=== PATIENT | male | born 1945 | race African-American/Black ===

== ENCOUNTER 2019-09-18 10:14 | Emergency (ER) | payer OTHER ==
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
--- OUTSIDE RECORDS SUMMARY | 2019-09-18 12:06 | XMS REPORT ---
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 Problem Mild depression F32.0 Active Problem Pain in limb M79.609 Active Problem Mass on back R22.2 Active Problem Congestive heart failure, I50.9 Ac tive unspecified HF chronicity, unspecified heart failure type Problem Varicose veins I86.8 Active Problem Primary insomnia F51.01 Active Problem Benign prostatic hyperplasia N40.0 Active without lower urinary tract symptoms Problem Other chronic pain G89.29 Active Problem Low back pain M54.5 Active Problem Cervicalgia M54.2 Active Problem Anemia D64.9 Active Problem Hypertension I10 Active Problem Hematuria R31.9 Active Problem Edema R60.9 Active Problem Mixed hyperlipidemia E78.2 Active Problem Elevated PSA R97.2 Active Problem CKD (chronic kidney disease) stage N18.3 Active 3, GFR 30-59 ml/min Problem Chronic kidney disease, unspecified N18.9 Active CKD stage Problem Kidney disease N28.9 Active Problem Lower extremity edema R60.0 Active Problem 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
--- OUTSIDE RECORDS SUMMARY | 2019-09-18 12:06 | XMS REPORT ---
:1945 Author Organization [employer] Care Team Providers Name Role Phone Escoto, Noelle Provider Role Unavailable Allergies, Adverse Reactions, Alerts Substance Reaction Event Type N.K.D.A. 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 Problem Seasonal allergic rhinitis, J30.2 Active unspecified trigger Problem Primary osteoarthritis, 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 Problem Mild depression F32.0 Active Problem Mass on back R22.2 Active Problem Pain in limb M79.609 Active Problem Congestive heart failure, I50.9 Ac tive unspecified HF chronicity, unspecified heart failure type Problem Primary insomnia F51.01 Active Problem Varicose veins I86.8 Active Problem Benign prostatic hyperplasia N40.0 Active [...] N18.3 Active 3, GFR 30-59 ml/min Problem Lower extremity edema R60.0 Active Medications Medication Code Code Instructions Start End Status Dosage System Date Date Simvastatin ND 19913128248 20 MG Orally May 15, Active 1 t ablet Once a day 2018 in the evening Amlodipine ND 00182281285 5 MG Orally Active 1 tab let Besylate Once a day Metoprolol ND 17542129400 100 MG Active TAKE 1 Tartrate TABLET TWICE DAILY WITH FOOD Clonidine HCl FORMERLY NAMED [facility] 17974178205 0.3 MG Orally Active 1 tablet three times a hold if bp day less 140/ 90 Trazodone HCl FORMERLY NAMED [facility] 17128875033 50 MG Orally Inactive 1 tablet Once a day at bedtime as needed Entresto FORMERLY NAMED [facility] 22866333345 49-51 MG Orally Active 1 t ablet Twice a day Terazosin HCl FORMERLY NAMED [facility] 77178309315 5 MG Active TAKE 1 CAPSULE EVERY DAY Osiris Aspirin FORMERLY NAMED [facility] 64211109790 81 MG Orally Active 1 tablet EC Low Dose Once a day Bactrim DS FORMERLY NAMED [facility] 69233834072 800-160 MG Active 1 tabl et Orally Twice a day Tamsulosin HCl FORMERLY NAMED [facility] 65964135754 0.4 MG Orally Active 1 capsule Once a day Tramadol HCl FORMERLY NAMED [facility] 60886717479 50 MG Orally Active 1 tablet every 6 hours prn pain Tamsulosin HCl FORMERLY NAMED [facility] 05434421370 0.4 MG Active Take 1 capsule by mouth daily. Clonidine HCl FORMERLY NAMED [facility] 34625854568 0.3 MG Orally Active 1 tablet Once a day Ferrous Sulfate FORMERLY NAMED [facility] 32477828681 325 (65 Fe) MG Activ e 1 tablet Orally Once a day Results No Known Results Summary Purpose eClinicalWorks Submission
--- OUTSIDE RECORDS SUMMARY | 2019-09-18 12:06 | XMS REPORT ---
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
[2019-09-18 12:40] VITALS: BP 202/99; O2SAT 100
== END 2019-09-18 12:35 | disposition home or self-care (01) ==
LOC: ER 10:14
DX: G89.11 Acute pain due to trauma (principal); M54.9 Dorsalgia, unspecified; V49.40XA Driver injured in collision with unspecified motor vehicles in traffic accident, initial encounter; I10 Essential (primary) hypertension; Z95.818 Presence of other cardiac implants and grafts
CPT/HCPCS: 71045; 72072; 99284

== ENCOUNTER 2019-11-26 11:18 | Observation (INO) | payer OTHER ==
--- OUTSIDE RECORDS SUMMARY | 2019-11-26 11:21 | XMS REPORT ---
:1945 Author Organization [employer] Care Team Providers Name Role Phone Noelle Escoto Provider Role Unavailable Allergies, Adverse Reactions, Alerts Substance Reaction Event Type N.K.D.A. Info Not Available Non Drug Allergy Problems Problem Type Condition Code Onset Dates Condition Statu s Assessment Medicare annual wellness visit, Z00.00 Active subsequent Problem Chronic kidney disease, unspecified N18.9 Active [...] Start End Status Dosage System Date Date Osiris Aspirin ND 35361748430 81 MG Orally Active 1 tablet EC Low Dose Once a day Tramadol HCl ND 57038980641 50 MG Orally Active 1 tablet every 6 hours prn pain Clonidine HCl ND 68293538823 0.3 MG Active Take 1 tablet by mouth three times daily. Hold if blood pressure is less than 140/90 Bactrim DS [facility] 63860135560 800-160 MG Active 1 tabl et Orally Twice a day Terazosin HCl [facility] 43710148347 5 MG Active TAKE 1 CAPSULE EVERY DAY Ferrous Sulfate [facility] 38456062341 325 (65 Fe) MG Activ e 1 tablet Orally Once a day Tamsulosin HCl [facility] 39191156158 0.4 MG Active Take 1 capsule by mouth daily. Simvastatin [facility] 91268366639 20 MG Orally Feb 20, Active 1 t ablet in Once a day 2018 the evening Amlodipine [facility] 31055708301 5 MG Orally Active 1 tab let Besylate Once a day Metoprolol [facility] 25083296460 100 MG Active TAKE 1 Tartrate TABLET TWICE DAILY WITH FOOD Entresto [facility] 79160771147 49-51 MG Orally Active 1 t ablet Twice a day Results No Known Results Summary Purpose eClinicalWorks Submission
--- OUTSIDE RECORDS SUMMARY | 2019-11-26 11:21 | XMS REPORT ---
:1945 Author Organization [employer] Care Team Providers Name Role Phone Escoto, Noelle Provider Role Unavailable Allergies, Adverse Reactions, Alerts Substance Reaction Event Type N.K.D.A. 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 Assessment Primary insomnia F51.01 Active Assessment Dilated cardiomyopathy I42.0 Activ e Assessment Mild depression F32.0 Active Assessment Mixed hyperlipidemia E78.2 Active Assessment Hypertension I10 Active Problem Pain in limb M79.609 Active Problem Hematuria R31.9 Active Problem Seasonal allergic rhinitis, J30.2 Active unspecified trigger Problem Primary osteoarthritis of left M19.012 Active shoulder Problem Edema R60.9 Active Problem Primary osteoarthritis, 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 Problem Benign prostatic hyperplasia N40.0 Active without lower urinary tract symptoms Problem Other chronic pain G89.29 Active Problem Osteoarthritis of multiple joints, M15.9 Active unspecified osteoarthritis type Problem Primary insomnia F51.01 Active Problem CKD (chronic kidney disease) stage N18.3 Active 3, GFR 30-59 ml/min Problem Hypertension I10 Active Problem Dilated cardiomyopathy I42.0 Activ e Problem Anemia D64.9 Active Problem Mild depression F32.0 Active Problem Mass on back R22.2 Active Problem Low back pain M54.5 Active Problem Cervicalgia M54.2 Active Problem Mixed hyperlipidemia E78.2 Active Assessment Osteoarthritis of multiple joints, M15.9 Active unspecified osteoarthritis type Problem Kidney disease N28.9 Active Problem Lower extremity edema R60.0 Active Problem Elevated PSA R97.2 Active Problem Chronic kidney disease, unspecified N18.9 Active CKD stage Problem Congestive heart failure, I50.9 Ac tive unspecified HF chronicity, unspecified heart failure type Problem Varicose veins I86.8 Active Problem 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 Entresto [facility] 46929110150 49-51 MG Orally Active 1 t ablet Twice a day Tamsulosin HCl [facility] 32848901548 0.4 MG Orally Active 1 capsule Once a day Bactrim DS [facility] 71687778360 800-160 MG Active 1 tabl et Orally Twice a day Ferrous Sulfate [facility] 52488824014 325 (65 Fe) MG Activ e 1 tablet Orally Once a day Clonidine HCl [facility] 24588684506 0.3 MG Active Take 1 tablet by mouth three times daily. Hold if blood pressure is less than 140/90 Amlodipine [facility] 64365996954 5 MG Orally Active 1 tab let Besylate Once a day Metoprolol [facility] 05881869706 100 MG Active TAKE 1 Tartrate TABLET TWICE DAILY WITH FOOD Clonidine HCl [facility] 04297032980 0.3 MG Orally Active 1 tablet three times a hold if bp day less 140/ 90 Trazodone HCl [facility] 84275184669 50 MG Orally Active 1 tablet at Once a day bedtime as needed Osiris Aspirin [facility] 11572937439 81 MG Orally Active 1 tablet EC Low Dose Once a day Tramadol HCl [facility] 62475334606 50 MG Orally Active 1 tablet every 6 hours prn pain Terazosin HCl ND 49705285906 5 MG Active TAKE 1 CAPSULE EVERY DAY Simvastatin ND 74224138832 20 MG Orally May 15, Active 1 t ablet in Once a day 2017 the evening Results No Known Results Summary Purpose eClinicalWorks Submission
--- OUTSIDE RECORDS SUMMARY | 2019-11-26 11:21 | XMS REPORT ---
:1945 Author Organization [employer] Care Team Providers Name Role Phone Escoto, Na Provider Role Unavailable Allergies No Known Allergies Problems Problem Type Condition Code Onset Dates Condition Statu s Assessment CKD (chronic kidney disease) stage N18.3 Active 3, GFR 30-59 ml/min Problem Pain in limb M79.609 Active Problem [...] M54.2 Active Problem Mixed hyperlipidemia E78.2 Active Problem Kidney disease N28.9 Active Problem Lower [...]
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
--- OUTSIDE RECORDS SUMMARY | 2019-11-26 11:21 | XMS REPORT | Continuity of Care Document ---
:1945 Author Organization [facility] t Address [address] [place] [address] Care Team Providers Name Role Phone Unavailable [...] erotic erotic [facility] - cardiovasc cardiovasc Me jus aguirre disease disease [facility] Kidney Kidney Problem Active [facility] disease disease [facility] Primary Primary Problem Active [facility] [...] a without a without l lower lower [facility] urinary urinary ent tract tract Clinics symptoms symptoms Other Other Problem Active [facility] chronic chronic [facility] - pain pain Memoria l [facility] Low back Low back Problem Active [facility] pain pain [facility] Cervicalgi Cervicalgi Problem Active [facility] a a [facility] Mild Mild Problem Active [facility] depression depression Mary Kay kes - Memoria l [facility] Clinics Mass on Mass on Problem Active [facility] back back [facility] - [facility] Primary Primary Problem Active [facility] insomnia insomnia [facility] Dilated Dilated Problem Active [facility] cardiomyop cardiomyop Mary Kay kes - athy athy Memoria l [facility]ics Osteoarthr Osteoarthr Problem Active [facility] itis of itis of Lukes - multiple multiple Memori a joints, joints, l unspecifie unspecifie Ou tpati d d ent osteoarthr osteoarthr Cl inics itis type itis type Preglaucom Preglaucom Problem Active [facility] a, a, [facility] - unspecifie unspecifie Me moria d, d, l bilateral bilateral Outp ati ent Clinics Nausea Nausea Diagnosis Active [facility] with with [facility] - vomiting, vomiting, Elmo zeke unspecifie unspecifie l d d [facility] Diarrhea, Diarrhea, Diagnosis Active [facility] unspecifie unspecifie Mary Kay kes - d d Memoria l [facility] Clinics Allergies, Adverse Reactions, Alerts This patient has no known allergies or adverse reactions. Medications Ordered Filled Start Stop Current Ordering Indication Dosage Frequency Signature Comments Components Source Medication Medication Date Date Medication? Clinician (SIG) Name Name Ondansetron Ondansetron Yes Na Escoto [address] [facility] HCl HCl 8-24 as needed [facility] - 00:00: Memoria 00 [facility] Tamiflu Tamiflu Yes Na Escoto [address] [facility] 7-31 [facility] - 00:00: Memoria 00 [facility] Simvastatin Simvastatin Yes Na Escoto [address] [facility] 2-20 in the [facility] - 00:00: evening Memoria [address] [facility] Ferrous Ferrous Yes Na Escoto [address] [facility]ulfate [facility]ate [facility] Tamsulosin Tamsulosin Yes Na Escoto Take [address] [facility] HCl HCl capsule by [facility] - mouth Memoria daily. l [facility] Clonidine Clonidine Yes Na Escoto Take [address] [facility] HCl HCl tablet by [facility] - mouth Memoria three l times [facility] daily. ent Hold if Clinics blood pressure is less than 140/90 Osiris Osiris Yes Na Escoto [address] [facility] Aspirin EC Aspirin EC John es - Low Dose Low Dose Memoria [facility] ent [facility] Tamsulosin Tamsulosin Yes Na Escoto [address] [facility] HCl [facility] Tramadol Tramadol Yes Na Escoto [address] [facility] HCl HCl [facility] Entresto Entresto Yes Na Escoto [address] [facility] - Memoria [facility] Bactrim DS Bactrim DS Yes Na Escoto [address] [facility] - Mem[facility] l [facility] Clonidine Clonidine Yes Na Escoto [address] [facility] HCl HCl hold if bp Lukes - less 140/ Memoria [address] [facility] Amlodipine Amlodipine Yes Na Escoto [address] [facility] Besylate Besylate [facility] - [facility] Metoprolol Metoprolol Yes Na Escoto TAKE [address] [facility] Tartrate Tartrate TABLET [facility]ukes - TWICE Memoria DAILY WITH l FOOD [facility] ent [facility] Trazodone Trazodone Yes Na Escoto [address] [facility] HCl HCl at bedtime [facility] - as needed [facility] Terazosin Terazosin Yes Na Escoto TAKE [address] [facility] HCl HCl CAPSULE [facility] - EVERY DAY Memoria l Outpati ent Clinics Procedures This patient has no known procedures. Encounters Start End Encounter Admission Attending Care Care Encounter Source Date/Time Date/Time Type Type Clinicians Facility Department ID 2019-11-21 2019-11-21 [facility] [id number] [facility] 09:20:00 09:20:00 [place] [facility] Medicine Outpati ent Clinics 2019-11-18 2019-11-18 [facility] [id number] [facility] 16:28:00 16:28:00 t [employer] [facility] Medicine Outpati ent Clinics 2019-11-18 2019-11-18 [facility] [id number] [address] 10:00:00 10:00:00 t [facility] Medicine Outpati ent Clinics 2019-11-17 2019-11-17 [facility] [id number] [address] 15:13:00 15:13:00 [place] [facility] Medicine Outpati ent Clinics 2019-11-17 2019-11-17 [facility] [id number] 14[facility]55:00 14:55:00 t [facility] [facility] Medicine Outpati ent Clinics 2019-11-06 2019-11-06 [facility] [id number] [address] 16:48:00 16:48:00 [place] [facility] Medicine Outpati ent Clinics 2019-11-03 2019-11-03 [facility] [id number] 11:57:00 11:57:00 t [facility] Medicine Outpati ent Clinics 2019-10-27 2019-10-27 [facility] [id number] 10:01:00 10:01:00 t [facility] Medicine Outpati ent Clinics 2019-10-27 2019-10-27 [facility] [id number] 09:40:00 09:40:00 t [facility] [facility] Medicine Outpati ent Clinics 2019-10-27 2019-10-27 [facility] [id number] 08:08:00 08:08:[address] [facility] [address] Luke s - Road [facility] l Medicine Outpati ent Clinics 2019-10-24 2019-10-24 [facility] [id number] 14:18:00 14:18:00 [place] [employer] Luke s - [facility] Medicine l Medicine Outpati ent Clinics 2019-10-24 2019-10-24 [facility] [id number] 13:18:00 13:18:00 [place] [employer] Luke s - Drive [facility] Medicine l Medicine Outpati ent Clinics 2019-10-02 2019-10-02 [facility] [id number] [address] 16:00:00 16:00:00 [place] [employer]pti[employer] s - Drive [facility] Medicine l Medicine Outpati ent Clinics 2019-10-02 2019-10-02 [facility] [id number] [address] 15:00:00 15:00:00 [place] [employer] LuPeptiVir s - Drive [facility] Medicine l Medicine Outpati ent Clinics 2019-09-23 2019-09-23 [facility] [id number] 13:20:00 13:20:00 [place] Slice s - Drive [facility] Medicine l Medicine Outpati ent Clinics 2019-09-19 2019-09-19 [facility] [id number] 16:42:00 16:42:00 [place] [employer] LuPeptiVir s - Drive [facility] Medicine l Medicine Outpati ent Clinics 2019-08-29 2019-08-29 [facility] [id number] 13:56:00 13:56:00 [place] [employer] LuPeptiVir s - Drive [facility] Medicine l Medicine Outpati ent Clinics 2019-08-14 2019-08-14 [facility] [id number] 09:26:00 09:26:00 [place] Slice s - Drive [facility] Medicine l Medicine Outpati ent Clinics 2019-07-31 2019-07-31 [facility] [id number] 08:40:00 08:40:00 [place] - Drive [facility] Medicine l Medicine Outpati ent Clinics 2019-07-16 2019-07-16 [facility] [id number] 15:21:00 15:21:00 [place] [employer]pti[employer] s - Drive [facility] Medicine l Medicine Outpati ent Clinics 2019-06-11 2019-06-11 [facility] [id number] 13:15:00 13:15:00 [place] Slice [place] - Drive [facility] Medicine l Medicine Outpati ent Clinics 2019-03-03 2019-03-03 [facility] [id number] 08:00:00 08:00:00 [place] [employer] s - Drive [facility] Medicine l Medicine Outpati ent Clinics 2019-02-19 2019-02-19 [facility] [id number] 08:40:00 08:40:00 [place] - Drive [facility] Medicine l Medicine Outpati ent Clinics 2019-02-10 2019-02-10 [facility] [id number] 09:00:00 09:00:00 [place] - Drive [facility] Medicine l Medicine Outpati ent Clinics 2019-02-04 2019-02-04 [facility] [id number] 09:09:00 09:09:00 [place] - Drive [facility] Medicine l Medicine Outpati ent Clinics 2019-01-29 2019-01-29 [facility] [id number] 09:00:00 09:00:00 [place] - Drive [facility] Medicine Outpati ent Clinics 2019-01-20 2019-01-20 [facility] [id number] 13:00:00 13:00:00 [place] - Drive [facility] Medicine l Medicine Outpati ent Clinics 2018-11-29 2018-11-29 [facility] [id number] [facility] 13:00:00 13:00:00 [place] - Drive [facility] l Medicine Outpati ent Clinics 2018-09-18 2018-09-18 [facility] [id number] 08:40:00 08:40:[address] Luke s - Drive [facility] Medicine Outpati ent Clinics 2018-08-09 2018-08-09 [facility] [id number] 10:27:00 10:27:[address] Luke s - Drive [facility] l Medicine Outpati ent Clinics 2018-05-13 2018-05-13 [facility] [id number] [address] 11:15:00 11:15:[address] Luke s - Drive [facility] l Medicine Outpati ent Clinics 2018-01-02 2018-01-02 [facility] [id number] [facility] 14:47:00 14:47:00 [place] [employer] Luke s - Drive [facility] Medicine Outpati ent Clinics 2017-10-23 2017-10-23 [facility] [id number] 16:32:00 16:32:00 [place] [employer] Luke s - Drive [facility] Medicine Outpati ent Clinics 2017-10-22 2017-10-22 [facility] [id number] 09:00:00 09:00:00 [place] [employer] Luke s - Drive [facility] Medicine Outpati ent Clinics 2017-09-12 2017-09-12 [facility] [id number] [facility] 15:32:00 15:32:00 [place] [employer] Lu[employer]pt[employer] s - Drive [facility] Medicine Outpati ent Clinics 2017-09-04 2017-09-04 [facility] [id number] [facility] 10:40:00 10:40:00 [place] [employer] Luke s - Drive [facility] Medicine Outpati ent Clinics 2017-07-24 2017-07-24 [facility] [id number] 16:21:00 16:21:[address] [place] [address] - [address] [facility] Medicine Outpati ent Clinics 2017-07-23 2017-07-23 [facility] [id number] 11:00:00 11:00:00 [place] [employer] Luke s - Drive [facility] Medicine Outpati ent Clinics Results This patient has no known results.
--- OUTSIDE RECORDS SUMMARY | 2019-11-26 11:22 | XMS REPORT ---
:1945 Author Organization [employer] Care Team Providers Name Role Phone Escoto, Na Provider Role Unavailable Allergies No Known Allergies Problems Problem Type Condition Code Onset Dates Condition Statu s Problem Pain in limb M79.609 Active Problem [...]
--- OUTSIDE RECORDS SUMMARY | 2019-11-26 11:22 | XMS REPORT ---
:1945 Author Organization [employer] Care Team Providers Name Role Phone Escoto, Noelle Provider Role Unavailable Allergies No Known Allergies [...] Start End Status Dosage System Date Date Amlodipine [facility] 03540605595 5 MG Orally Active 1 tab let Besylate Once a day Entresto [facility] 31672629214 49-51 MG Orally Active 1 t ablet Twice a day Clonidine HCl [facility] 36921666260 0.3 MG Active Take 1 tablet by mouth three times daily. Hold if blood pressure is less than 140/90 Tamsulosin HCl [facility] 10915372297 0.4 MG Active Take 1 capsule by mouth daily. Metoprolol [facility] 56519600720 100 MG Active TAKE 1 Tartrate TABLET TWICE DAILY WITH FOOD Trazodone HCl ND 13690735527 50 MG Orally Active 1 tablet at Once a day bedtime as needed Azithromycin [facility] 59541901038 250 MG Orally Nov 02, Nov 07, Active 2 tablets Once a day 2019 2019 on the first day, then 1 tablet daily for 4 days Simvastatin ND 66380942207 20 MG Orally May 15, Active 1 t ablet in Once a day 2017 the evening Ferrous Sulfate [facility] 12663966474 325 (65 Fe) MG Activ e 1 tablet Orally Once a day Clonidine HCl ND 66436626975 0.3 MG Orally Active 1 tablet three times a hold if bp day less 140/ 90 Bactrim DS [facility] 62205094397 800-160 MG Active 1 tabl et Orally Twice a day Tamsulosin HCl [facility] 10339502219 0.4 MG Orally Active 1 capsule Once a day Osiris Aspirin EC ND 38157347768 81 MG Orally Active 1 tablet Low Dose Once a day Tamiflu ND 81392370901 75 MG Orally October 23, Active 1 caps ule once a day 2019 Tramadol HCl ND 97409505565 50 MG Orally Active 1 tablet every 6 hours prn pain Terazosin HCl [facility] 00903440470 5 MG Active TAKE 1 CAPSULE EVERY DAY Results No Known Results Summary Purpose eClinicalWorks Submission
--- OUTSIDE RECORDS SUMMARY | 2019-11-26 11:22 | XMS REPORT ---
:1945 Author Organization [employer] Care Team Providers Name Role Phone Escoto, Noelle Provider Role Unavailable Allergies, Adverse Reactions, Alerts Substance Reaction Event Type N.K.D.A. Info Not Available Non Drug Allergy Problems Problem Type Condition Code Onset Dates Condition Statu s Assessment Runny nose R09.89 Active Assessment Contact with and (suspected) Z20.828 Active exposure to other viral communicable diseases Problem Pain in limb M79.609 Active Problem [...] Status Dosage System Date Date Terazosin HCl [facility] 45664179508 5 MG Active TAKE 1 CAPSULE EVERY DAY Entresto [facility] 77007440426 49-51 MG Orally Active 1 t ablet Twice a day Clonidine HCl [facility] 02126381297 0.3 MG Orally Active 1 tablet three times a hold if bp day less 140/ 90 Bactrim DS [facility] 31022867869 800-160 MG Active 1 tabl et Orally Twice a day Metoprolol [facility] 45524640914 100 MG Active TAKE 1 Tartrate TABLET TWICE DAILY WITH FOOD Tamiflu [facility] 89446823013 75 MG Orally October 23, Active 1 caps ule once a day 2019 Clonidine HCl [facility] 12748641372 0.3 MG Active Take 1 tablet by mouth three times daily. Hold if blood pressure is less than 140/90 Amlodipine [facility] 67968552933 5 MG Orally Active 1 tab let Besylate Once a day Tamsulosin HCl [facility] 25585839073 0.4 MG Orally Active 1 capsule Once a day Trazodone HCl [facility] 39043333362 50 MG Orally Active 1 tablet at Once a day bedtime as needed Tamsulosin HCl [facility] 49337536739 0.4 MG Active Take 1 capsule by mouth daily. Tramadol HCl [facility] 36957561232 50 MG Orally Active 1 tablet every 6 hours prn pain Osiris Aspirin [facility] 38421769130 81 MG Orally Active 1 tablet EC Low Dose Once a day Ferrous Sulfate [facility] 39713808067 325 (65 Fe) MG Activ e 1 tablet Orally Once a day Simvastatin ND 68217600024 20 MG Orally Fe, Active 1 t ablet in Once a day 2017 the evening Results No Known Results Summary Purpose eClinicalWorks Submission
--- OUTSIDE RECORDS SUMMARY | 2019-11-26 11:22 | XMS REPORT ---
[...] Start End Status Dosage System Date Date Clonidine HCl [facility] 85639604736 0.3 MG Active Take 1 tablet by mouth three times daily. Hold if blood pressure is less than 140/90 Tamsulosin HCl [facility] 34381295321 0.4 MG Active Take 1 capsule by mouth daily. Trazodone HCl ND 47706858758 50 MG Orally Active 1 tablet at Once a day bedtime as needed Tamsulosin HCl ND 49501227312 0.4 MG Orally Active 1 capsule Once a day Terazosin HCl [facility] 87627554876 5 MG Active TAKE 1 CAPSULE EVERY DAY Ferrous Sulfate [facility] 65308221851 325 (65 Fe) MG Activ e 1 tablet Orally Once a day Simvastatin ND 79275185386 20 MG Orally May 15, Active 1 t ablet in Once a day 2017 the evening Amlodipine ND 96467710317 5 MG Orally Active 1 tab let Besylate Once a day Tamiflu ND 33187540741 75 MG Orally October 23, Active 1 caps ule once a day 2019 Bactrim DS [facility] 93708883675 800-160 MG Active 1 tabl et Orally Twice a day Clonidine HCl [facility] 54924637904 0.3 MG Orally Active 1 tablet three times a hold if bp day less 140/ 90 Metoprolol [facility] 46356807215 100 MG Active TAKE 1 Tartrate TABLET TWICE DAILY WITH FOOD Osiris Aspirin [facility] 24536714082 81 MG Orally Active 1 tablet EC Low Dose Once a day Tramadol HCl [facility] 11593624220 50 MG Orally Active 1 tablet every 6 hours prn pain Entresto [facility] 05551523540 49-51 MG Orally Active 1 t ablet Twice a day Results No Known Results Summary Purpose eClinicalWorks Submission
--- OUTSIDE RECORDS SUMMARY | 2019-11-26 11:22 | XMS REPORT ---
[...] Start End Status Dosage System Date Date Ondansetron HCl [facility] 71919165859 4 MG Orally TID Nov 16, Acti ve 1 tablet PRN N/V 2019 as needed Results No Known Results Summary Purpose eClinicalWorks Submission
--- OUTSIDE RECORDS SUMMARY | 2019-11-26 11:23 | XMS REPORT ---
:1945 Author Organization [facility] Care Team Providers Name Role Phone Noelle Escoto Provider Role Unavailable Allergies, Adverse Reactions, Alerts Substance Reaction Event Type N.K.D.A. 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 Problem Primary osteoarthritis, 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 Problem Anemia D64.9 Active Problem Other chronic pain G89.29 Active Problem Cervicalgia M54.2 Active Problem Benign prostatic hyperplasia N40.0 Active without lower urinary tract symptoms Problem Osteoarthritis of multiple joints, M15.9 Active unspecified osteoarthritis type Problem Dilated cardiomyopathy I42.0 Activ e Problem Lower extremity edema R60.0 Active Problem CKD (chronic kidney disease) stage N18.3 Active 3, GFR 30-59 ml/min Problem Preglaucoma, unspecified, 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 Problem Hypertension I10 Active Problem Mass on back R22.2 Active Problem Low back pain M54.5 Active Problem Primary insomnia F51.01 Active Problem Mild depression F32.0 Active Problem Kidney disease N28.9 Active Problem Varicose veins I86.8 Active Problem Elevated PSA R97.2 Active Problem Mixed hyperlipidemia E78.2 Active Problem Congestive heart failure, I50.9 Ac tive unspecified HF chronicity, unspecified heart failure type Problem Seasonal allergic rhinitis, J30.2 Active unspecified trigger Problem 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 50862410515 0.3 MG Active Take 1 tablet by mouth three times daily. Hold if blood pressure is less than 140/90 Amlodipine [facility] 13025450080 5 MG Orally Active 1 tab let Besylate Once a day Ondansetron HCl ND 82946420333 4 MG Orally TID Nov 16, Acti ve 1 tablet as PRN N/V 2019 needed Tamsulosin HCl ND 85676406826 0.4 MG Orally Active 1 capsule Once a day Entresto ND 74441068503 49-51 MG Orally Active 1 t ablet Twice a day Metoprolol ND 07802382008 100 MG Active TAKE 1 Tartrate TABLET TWICE DAILY WITH FOOD Ferrous Sulfate ND 09263765096 325 (65 Fe) MG Activ e 1 tablet Orally Once a day Simvastatin ND 19338353886 20 MG Orally May 15, Active 1 t ablet in Once a day 2017 the evening Bactrim DS [facility] 48314553911 800-160 MG Active 1 tabl et Orally Twice a day Tamiflu ND 99610958101 75 MG Orally October 23, Active 1 caps ule once a day 2019 Clonidine HCl ND 77897523337 0.3 MG Orally Active 1 tablet three times a hold if bp day less 140/ 90 Trazodone HCl [facility] 24657361366 50 MG Orally Active 1 tablet at Once a day bedtime as needed Osiris Aspirin ND 17266736141 81 MG Orally Active 1 tablet EC Low Dose Once a day Tramadol HCl ND 22343837420 50 MG Orally Active 1 tablet every 6 hours prn pain Terazosin HCl ND 44098435415 5 MG Active TAKE 1 CAPSULE EVERY DAY Tamsulosin HCl [facility] 26466895587 0.4 MG Active Take 1 capsule by mouth daily. Results No Known Results Summary Purpose eClinicalWorks Submission
--- OUTSIDE RECORDS SUMMARY | 2019-11-26 11:23 | XMS REPORT ---
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
--- OUTSIDE RECORDS SUMMARY | 2019-11-26 11:23 | XMS REPORT ---
:1945 [facility] Team Providers Name Role Phone JohnsonLawson Provider Role Unavailable Allergies, Adverse Reactions, Alerts Substance Reaction Event Type N.K.D.A. Info Not Available Non Drug Allergy Problems Problem Type Condition Code Onset Dates Condition Statu s Assessment Exposure to COVID-19 virus Z20.828 A ctive Assessment Nausea with vomiting, unspecified R11.2 Active [...] Status Dosage System Date Date Simvastatin ND 41470770100 20 MG Orally May 15, Active 1 t ablet in Once a day 2018 the evening Ferrous Sulfate ND 45763908216 325 (65 Fe) MG Activ e 1 tablet Orally Once a day Tamsulosin HCl [facility] 45352002433 0.4 MG Active Take 1 capsule by mouth daily. Clonidine HCl [facility] 89893813278 0.3 MG Active Take 1 tablet by mouth three times daily. Hold if blood pressure is less than 140/90 Osiris Aspirin [facility] 26680828812 81 MG Orally Active 1 tablet EC Low Dose Once a day Tamsulosin HCl [facility] 77558855347 0.4 MG Orally Active 1 capsule Once a day Tamiflu ND 68067331913 75 MG Orally October 23, Active 1 caps ule once a day 2019 Tramadol HCl ND 81451635231 50 MG Orally Active 1 tablet every 6 hours prn pain Entresto ND 24020580085 49-51 MG Orally Active 1 t ablet Twice a day Bactrim DS [facility] 61354849292 800-160 MG Active 1 tabl et Orally Twice a day Clonidine HCl [facility] 10148197124 0.3 MG Orally Active 1 tablet three times a hold if bp day less 140/ 90 Amlodipine ND 93879511057 5 MG Orally Active 1 tab let Besylate Once a day Metoprolol ND 34602377436 100 MG Active TAKE 1 Tartrate TABLET TWICE DAILY WITH FOOD Ondansetron HCl [facility] 65074424862 4 MG Orally TID Nov 16, Acti ve 1 tablet as PRN N/V 2019 needed Trazodone HCl [facility] 50716679630 50 MG Orally Active 1 tablet at Once a day bedtime as needed Terazosin HCl [facility] 89190521825 5 MG Active TAKE 1 CAPSULE EVERY DAY Results No Known Results Summary Purpose eClinical[employer] Submission
[2019-11-26] MEDS ORDERED: FAMOTIDINE 20 MG/2 ML VIAL IV ONE (12:03)
[2019-11-26] MEDS ORDERED: NA CHLORIDE 0.9% 500 ML ONE (12:03)
[2019-11-26] MEDS ORDERED: ONDANSETRON 4 MG/2 ML VIAL ONE (12:03)
[2019-11-26 12:16] LABS: Absolute Lymphocytes (CBC) 1.4 K/uL (0.7-4.9); Basophils % 0.3 % (0-1.3); Hematocrit 47.7 % (39.6-49.0); Lymphocytes % 14.1 % (15.3-44.8); MPV 8.3 fL (7.6-11.3); RBC Red Blood Cell Count 5.08 M/uL (4.33-5.43)
--- NOTE | 2019-11-26 12:23 | RAD REPORT ---
EXAM DESCRIPTION: RAD - Chest Single View - 11/26/2019 12:06 pm CLINICAL HISTORY: COUGH COMPARISON: September 18, 2019 TECHNIQUE: AP portable chest image was obtained 11/26/2019 12:06 pm . FINDINGS: Lungs are clear. Heart and vasculature are normal. No measurable pleural effusion and no p neumothorax. No acute bony abnormality seen. Prominent, tortuous aorta matches comparison. IMPRESSION: No acute cardiopulmonary process.
[2019-11-26 12:30] LABS: Albumin 3.2 g/dL (3.4-5.0); Bilirubin Direct 0.2 mg/dL (0-0.2); Bilirubin Total 0.7 mg/dL (0.2-1.0); Potassium 3.4 mmol/L (3.5-5.1)
--- NOTE | 2019-11-26 12:50 | RAD REPORT ---
EXAM DESCRIPTION: CT - Abdomen Pelvis W Contrast - 11/26/2019 12:41 pm CLINICAL HISTORY: Abdominal pain COMPARISON: 2015 TECHNIQUE: Computed axial tomography of the abdomen pelvis was obtained. 100 cc Isovue-300 was admin istered intravenously. Oral contrast was not requested which limits evaluation of bowel. All CT scans are performed using dose optimization technique as appropriate and may include automated exposure control or mA/KV adjustment according to patient size. FINDINGS: Small hepatic cysts Small renal cysts The spleen, pancreas and adrenals unremarkable There is no evidence of diverticulitis. A TURP procedure. 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
--- NOTE | 2019-11-26 13:16 | EDPHYS ---
Physician Documentation [facility] Name: Quinn Crane Jr Age: 74 yrs Sex: Male : 1945 Arrival Date: 11/26/2019 Time: 11:21 Bed 5 Private MD: ED Physician Oni Abel HPI: 11/25 12:19 This 74 yrs old Black Male presents to ER via Wheelchair with complaints of Diarrhea, kdr Cough. 12:21 The patient has had general c/o including n/v/d and cough with subjective fever. he has kdr been ill for about three weeks and not getting any better. Dr. Escoto has tested him twice for COVID and he reports that both tests were negative. her has otherwise been in his usual state of health. Onset: The symptoms/episode began/occurred gradually, 3 week(s) ago. Severity of symptoms: At their worst the symptoms were mild moderate just prior to arrival, in the emergency department the symptoms are unchanged. The patient has not experienced similar symptoms in the past. The patient has been recently seen by a physician: Dr. Escoto. Historical: - Allergies: 11:32 No Known Allergies; ll1 - PMHx: 11:32 Hyperlipidemia; prostate problems; Hypertension; ll1 - PSHx: 11:32 Appendectomy; heart stents x 2; ll1 - Immunization history:: Adult Immunizations up to date. - Social history:: Smoking status: Patient denies any tobacco usage or history of. Patient/guardian denies using street drugs. ROS: 12:21 Constitutional: Negative for fever, chills, and weight loss, Eyes: Negative for injury, kdr pain, redness, and discharge, ENT: Negative for injury, pain, and discharge, Neck: Negative for injury, pain, and swelling, Cardiovascular: Negative for chest pain, palpitations, and edema, Back: Negative for injury and pain, : Negative for injury, bleeding, discharge, and swelling, MS/Extremity: Negative for injury and deformity, Skin: Negative for injury, rash, and discoloration, Neuro: Negative for headache, weakness, numbness, tingling, and seizure activity. Psych: Negative for depression, anxiety, suicide ideation, homicidal ideation, and hallucinations, Allergy/Immunology: Negative for hives, rash, and allergies, Endocrine: Negative for neck swelling, polydipsia, polyuria, polyphagia, and marked weight changes, Hematologic/Lymphatic: Negative for swollen nodes, abnormal bleeding, and unusual bruising. 12:21 Respiratory: Positive for cough, with clear sputum, dyspnea on exertion, shortness of breath, Negative for hemoptysis, orthopnea, pleurisy. 12:21 Abdomen/GI: Positive for abdominal pain, nausea, vomiting, and diarrhea, abdominal cramps, Negative for black/tarry stool, rectal pain, rectal bleeding, bowel incontinence, flatulence. Exam: 12:21 Constitutional: This is a well developed, well nourished patient who is awake, alert, kdr and in no acute distress. Head/Face: Normocephalic, atraumatic. Eyes: Pupils equal round and reactive to light, extra-ocular motions intact. Lids and lashes normal. Conjunctiva and sclera are non-icteric and not injected. Cornea within normal limits. Periorbital areas with no swelling, redness, or edema. Neck: Trachea midline, no thyromegaly or masses palpated, and no cervical lymphadenopathy. Supple, full range of motion without nuchal rigidity, or vertebral point tenderness. No Meningismus. Chest/axilla: Normal chest wall appearance and motion. Nontender with no deformity. No lesions are appreciated. Cardiovascular: Regular rate and rhythm with a normal S1 and S2. No gallops, murmurs, or rubs. Normal PMI, no JVD. No pulse deficits. Respiratory: Lungs have equal breath sounds bilaterally, clear to auscultation and percussion. No rales, rhonchi or wheezes noted. No increased work of breathing, no retractions or nasal flaring. Back: No spinal tenderness. No costovertebral tenderness. Full range of motion. Skin: Warm, dry with normal turgor. Normal color with no rashes, no lesions, and no evidence of cellulitis. MS/ Extremity: Pulses equal, no cyanosis. Neurovascular intact. Full, normal range of motion. Neuro: Awake and alert, GCS 15, oriented to person, place, time, and situation. Cranial nerves II-XII grossly intact. Motor strength 5/5 in all extremities. Sensory grossly intact. Cerebellar exam normal. Normal gait. Psych: Awake, alert, with orientation to person, place and time. Behavior, mood, and affect are within normal limits. 12:21 Abdomen/GI: Inspection: abdomen appears normal, obese Bowel sounds: active, diminished, in all quadrants, Palpation: soft, mild abdominal tenderness, in all quadrants. Vital Signs: 11:30 BP 161 / 106; Pulse 107; Resp 18; Temp 97.8; Pulse Ox 100% ; Pain 7/10; ll1 12:53 BP 155 / 106; Pulse 86; Resp 20; Pulse Ox 100% ; jr10 14:57 BP 194 / 116; Resp 18; Pulse Ox 99% on R/A; jr10 14:57 pt reports that he is supposed to take 0.3 of clonidine TID, reports that he has not jr10 taken any of his BP meds today due to nausea. Will obtain order for home HTN meds and transfer to floor MDM: 12:21 Data reviewed: vital signs, nurses notes, old medical records, lab test result(s), kdr radiologic studies. Counseling: I had a detailed discussion with the patient and/or guardian regarding: the historical points, exam findings, and any diagnostic results supporting the discharge/admit diagnosis, lab results, radiology results, the need for outpatient follow up. 13:16 Patient medically screened. [facility] 11/25 11:50 Order name: Basic Metabolic Panel; Complete Time: 12:35 [facility] 11/25 11:50 Order name: CBC with Diff; Complete Time: 12:35 [facility] 11/25 11:50 Order name: Hepatic Function; Complete Time: 12:35 [facility] 11/25 11:50 Order name: Lipase; Complete Time: 12:35 [facility] 11/25 14:23 Order name: CBC with Automated Diff [facility] 11/25 14:23 Order name: CBC with Automated Diff [facility] 11/25 11:51 Order name: CXR XRAY; Complete Time: 12:35 [facility] 11/25 12:17 Order name: CT Abd/Pelvis - IV Contrast Only; Complete Time: 13:04 [facility] 11/25 14:23 Order name: Comprehensive Metabolic Panel [facility] 11/25 14:23 Order name: Comprehensive Metabolic Panel [facility] 11/25 11:50 Order name: IV Saline Lock; Complete Time: 12:09 [facility] 11/25 11:50 Order name: Labs collected and sent; Complete Time: 12:09 [facility] 11/25 13:10 Order name: PO challenge; Complete Time: 13:38 [facility] 11/25 14:23 Order name: Clear Liquid EDMS Administered Medications: 12:00 Drug: Pepcid 20 mg Route: IVP; Site: right forearm; jr10 12:24 Follow up: Response: No adverse reaction jr10 12:00 Drug: Zofran (Ondansetron) 4 mg Route: IVP; Site: right forearm; jr10 12:24 Follow up: Response: No adverse reaction jr10 12:02 Drug: NS 0.9% 500 ml Route: IV; Rate: bolus; Site: right forearm; jr10 12:53 Follow up: Response: No adverse reaction; IV Status: Completed infusion jr10 15:24 Drug: cloNIDine 0.3 mg Route: PO; jr10 Disposition: 11/26/19 13:16 Hospitalization ordered by Julio Hansen for Observation. Preliminary diagnosis are Nausea and vomiting, Diarrhea, unspecified, Acute Renal Failure. - Bed requested for Telemetry/MedSurg (observation). - Status is Observation. jr10 - Condition is Fair. - Problem is an acute exacerbation. - Symptoms have improved. Signatures: Dispatcher [employer] EDMS Liliana Abel Kevin, MD MD kdr Maxwell Singh RN RN ll1 Karmen Zuñiga RN RN jr10 Corrections: (The following items were deleted from the chart) 14:38 13:16 Hospitalization Ordered by Julio Hansen MD for Observation. Preliminary bd diagnosis is Nausea and vomiting; Diarrhea, unspecified; Acute Renal Failure. Bed requested for Telemetry/MedSurg (observation). Status is Observation. Condition is Fair. Problem is an acute exacerbation. Symptoms have improved. [facility] 15:26 14:38 11/26/2019 13:16 Hospitalization Ordered by Julio Hansen MD for Observation. jr10 Preliminary diagnosis is Nausea and vomiting; Diarrhea, unspecified; Acute Renal Failure. Bed requested for Telemetry/MedSurg (observation). Status is Observation. Condition is Fair. Problem is an acute exacerbation. Symptoms have improved. bd
--- NOTE | 2019-11-26 13:16 | ER ---
Nurse's Notes [facility] Name: Quinn Crane Jr Age: 74 yrs Sex: Male : 1945 Arrival Date: 11/26/2019 Time: 11:21 Bed 5 Private MD: Diagnosis: Nausea and vomiting;Diarrhea, unspecified;Acute Renal Failure Presentation: 11/25 11:30 Chief complaint: Patient states: Cough, runny nose, N/V/D with abdominal cramps for 3 ll1 weeks. Covid negative x 2. No fever at home. Coronavirus screen: Client denies travel out of the [place] in the last 14 days. The client reports previous COVID testing was negative. Date of collection: November 19, 2019. Ebola Screen: Patient denies travel to an Ebola-affected area in the 21 days before illness onset. Initial Sepsis Screen: Does the patient meet any 2 criteria? HR > 90 bpm. Risk Assessment: Do you want to hurt yourself or someone else? Patient reports no desire to harm self or others. Onset of symptoms was November 01, 2019. 11:30 Method Of Arrival: Wheelchair ll1 11:30 Acuity: [place] 3 ll1 14:57 Initial Sepsis Screen: Does the patient have a suspected source of infection? No. jr10 Patient's initial sepsis screen is negative. Historical: - Allergies: 11:32 No Known Allergies; ll1 - PMHx: 11:32 Hyperlipidemia; prostate problems; Hypertension; ll1 - PSHx: 11:32 Appendectomy; heart stents x 2; ll1 - Immunization history:: Adult Immunizations up to date. - Social history:: Smoking status: Patient denies any tobacco usage or history of. Patient/guardian denies using street drugs. Screenin:45 Abuse screen: Denies threats or abuse. Denies injuries from another. Nutritional jr10 screening: No deficits noted. Tuberculosis screening: No symptoms or risk factors identified. 14:57 Fall Risk jr10 Assessment: 12:00 General: Appears in no apparent distress. Behavior is calm, cooperative, appropriate jr10 for age. Pain: Denies pain. Neuro: No deficits noted. Cardiovascular: No deficits noted. Denies chest pain, shortness of breath, hx of cardiac stents Patient's skin is warm and dry. Pulses are all present. Edema is absent. Rhythm is regular. Respiratory: No deficits noted. Reports cough that is dry, since 3 weeks Airway is patent Respiratory effort is even, unlabored, Respiratory pattern is regular, symmetrical, Breath sounds are clear bilaterally. Denies shortness of breath labored breathing, pain with cough. GI: Abdomen is round Bowel sounds present X 4 quads. Abd is soft and non tender X 4 quads. Reports bloating, cramping, diarrhea, nausea, since x3 weeks, was seen by his PCP and tested for COVID x2, last test last week, both resulted negative. : No deficits noted. No signs and/or symptoms were reported regarding the genitourinary system. EENT: No deficits noted. No signs and/or symptoms were reported regarding the EENT system. Derm: No deficits noted. No signs and/or symptoms reported regarding the dermatologic system. Musculoskeletal: No deficits noted. No signs and/or symptoms reported regarding the musculoskeletal system. 12:58 Reassessment: Pt family contact information: Raina (): [phone]. jr10 13:38 Reassessment: Patient and/or family updated on plan of care and expected duration. Pain jr10 level reassessed. Patient is alert, oriented x 3, equal unlabored respirations, skin warm/dry/pink. pt give sprite for PO challenge, tolerated well Patient states feeling better. 13:55 Reassessment: Dr Hansen, admitting at bedside for evaluation. jr10 Vital Signs: 11:30 BP 161 / 106; Pulse 107; Resp 18; Temp 97.8; Pulse Ox 100% ; Pain 7/10; ll1 12:53 BP 155 / 106; Pulse 86; Resp 20; Pulse Ox 100% ; jr10 14:57 BP 194 / 116; Resp 18; Pulse Ox 99% on R/A; jr10 14:57 pt reports that he is supposed to take 0.3 of clonidine TID, reports that he has not jr10 taken any of his BP meds today due to nausea. Will obtain order for home HTN meds and transfer to floor ED Course: 11:21 Patient arrived in ED. ds1 11:22 Oni Abel MD is Attending Physician. kdr 11:31 Karmen Zuñiga RN is Primary Nurse. jr10 11:32 Triage completed. ll1 11:32 Arm band placed on Patient placed in an exam room, on a stretcher. ll1 11:46 Patient has correct armband on for positive identification. Placed in gown. Bed in low jr10 position. Call light in reach. Side rails up X2. Pulse ox on. NIBP on. 12:00 Inserted saline lock: 20 gauge in right forearm, using aseptic technique. IV is patent, jr10 is intact, with fluids infusing freely, with good blood return, Flushed. 12:06 CXR XRAY In Process Unspecified. EDMS 12:12 No provider procedures requiring assistance completed. jr10 12:41 CT Abd/Pelvis - IV Contrast Only In Process Unspecified. EDMS 13:15 Julio Hansen MD is Hospitalizing Provider. kdr 14:56 Patient admitted, IV remains in place. intact, No redness/swelling at site. jr10 Administered Medications: 12:00 Drug: Pepcid 20 mg Route: IVP; Site: right forearm; jr10 12:24 Follow up: Response: No adverse reaction jr10 12:00 Drug: Zofran (Ondansetron) 4 mg Route: IVP; Site: right forearm; jr10 12:24 Follow up: Response: No adverse reaction jr10 12:02 Drug: NS 0.9% 500 ml Route: IV; Rate: bolus; Site: right forearm; jr10 12:53 Follow up: Response: No adverse reaction; IV Status: Completed infusion jr10 15:24 Drug: cloNIDine 0.3 mg Route: PO; jr10 Outcome: 13:16 Decision to Hospitalize by Provider. kdr 14:56 Admitted to Med/surg accompanied by tech, via wheelchair, room 228, with chart, Report jr10 called to OWEN Jansen 14:56 Condition: improved 14:56 Instructed on the need for admit. 15:26 Patient left the ED. jr10 Signatures: Dispatcher [employer] EDMS Oni Abel MD MD kdr Sanford, Demi ds1 Maxwell Singh RN RN ll1 Karmen Zuñiga RN RN jr10
--- NOTE | 2019-11-26 14:28 | P.HP ---
Certification for Inpatient Patient admitted to: Observation With expected LOS: <2 Midnights Practitioner: I am a practitioner with admitting privileges, knowledge of patient current condition, hospital course, and medical plan of care. Services: Services provided to patient in accordance with Admission requirements found in Title 42 Section 412.3 of the Code of Federal Regulations Patient History Date of Service: 11/26/19 Primary Care Provider: Dr. sEcoto Reason for admission: CHASTITY, nausea/vomiting History of Present Illness: The patient presents to the ED with persistent nausea, vomiting, and diarrhea for the past 3 weeks. He reports inability to keep most things down after eating/tracking. Most of the time and some paternal within a few hr of eating. There has been having diarrhea approximately every 2 hr, described as very small amounts of watery stool. His diarrhea is typically preceded by abdominal cramping and pain, unrelieved with his bowel movement. He has not tried anything else for this. He has been able to drink some water and sprite. He reports no fevers or chills, no chest pain, no difficulty urinating. Dizziness PCP earlier this week I will recommended a bland diet and try antibiotics, which had no effect. At that time he was noted to have low blood pressure was advised to hold his medications for few days. In the ED, CBC was unremarkable, BMP was notable for mild hypokalemia (3.4), an EKG i.e. (creatinine: 2.42), lipase was normal, LFTs normal. Vitals notable for hypertension: 180s/90s. Patient did not take any of his medications today CXR: No acute cardiopulmonary process CT abdomen/pelvis with contrast: No evidence of diverticulitis, appendectomy, TURP procedure. No acute abnormality is displayed Allergies No Known Allergies Allergy (Verified 09/30/13 10:59) Home Medications: Metoprolol Tartrate [Lopressor*] 100 mg PO BID 6AM 6PM 10/06/13 Simvastatin [Zocor*] 20 mg PO DAILY 10/06/13 Tamsulosin [Flomax*] 0.4 mg PO DAILY 10/06/13 minoxidiL [Loniten*] 2.5 mg PO BID #0 tab 10/07/13 Cephalexin [Keflex] 500 mg PO BID #20 cap 06/20/16 cloNIDine HCL [Catapres*] 0.2 mg PO TID #90 tab 06/20/16 traMADol HCL [Ultram*] 50 mg PO TIDP PRN #15 tab 06/20/16 - Past Medical/Surgical History Diabetic: No -: HTN -: Hyperlipidemia -: BPH -: Coronary disease with previous stents -: Chronic renal disease -: heart stents x 2 -: Appendectomy Psychosocial/ Personal History: Patient is , has 2 children, he works at [employer]. - Family History Father -: Cancer Mother -: Hypertension, Cancer Brother -: Hypertension Sister -: Hypertension - Social History Smoking Status: Never smoker Alcohol use: No CD- Drugs: No Caffeine use: No Review of Systems General: Unremarkable Eyes: Unremarkable ENT: Unremarkable Respiratory: Unremarkable Cardiovascular: Unremarkable Gastrointestinal: Nausea, Vomiting, Abdominal Pain, Diarrhea, No Distention, As per HPI Genitourinary: Unremarkable Musculoskeletal: Unremarkable Integumentary: Unremarkable Neurological: Unremarkable Lymphatics: Unremarkable Physical Examination - Physical Exam General: Alert, In no apparent distress HEENT: Atraumatic, PERRLA, Mucous membr. moist/pink, EOMI, Sclerae nonicteric Neck: Supple, 2+ carotid pulse no bruit, No LAD, Without JVD or thyroid abnormality Respiratory: Clear to auscultation bilaterally, Normal air movement Cardiovascular: Regular rate/rhythm, Normal S1 S2 Gastrointestinal: Normal bowel sounds, Soft and benign, Non-distended, No tenderness Musculoskeletal: No tenderness Integumentary: No rashes Neurological: Normal gait, Normal speech, Normal strength at 5/5 x4 extr, Normal affect - Studies Laboratory Data (last 24 hrs) 11/26/19 12:00: WBC 9.8, Hgb 16.0, Hct 47.7, Plt Count 247 11/26/19 12:00: Sodium 146 H, Potassium 3.4 L, BUN 29 H, Creatinine 2.42 H, Glucose 138 H, Total Bilirubin 0.7, AST 28, ALT 41, Alkaline Phosphatase 59, Lipase 120 Assessment and Plan - Advance Directives Does patient have a Living Will: No Does patient have a Durable POA for Healthcare: No - Code Status/Comfort Care Code Status Assessed: Yes Code Status: Full Code Physician Review Additional Text: CHASTITY on CKDIII nausea/vomiting/diarrhea Hypertension Coronary artery disease status post stenting CKD 3 BPH Hyperlipidemia CHASTITY on CKD III -likely prerenal as patient has been unable to tolerate much p.o. -start maintenance IV fluids. -creatinine baseline seems to be just under 2 nausea/vomiting/diarrhea -unclear etiology, has been going on for 3 weeks, no bleeding -CT abdomen/pelvis normal common no acute infection/diverticulitis seen -patient does not appear septic -reports is been several months since his last antibiotic exposure, low risk for C diff, and no leukocytosis -started on clears tonight and advance diet as tolerated -can try zofran, imodium -does not have history of IBS or IBD Hypertension - continued home meds Coronary artery disease status post stenting -continue home meds BPH - continue home meds Hyperlipidemia -continue home meds Dispo: anticipate dc home tomorrow after IVF Time Spent Managing Pts Care (In Minutes): 55
[2019-11-26] MEDS ORDERED: cloNIDine HCL 0.1 MG TAB ONE (15:34)
[2019-11-26 16:26] VITALS: BMI 30.4
[2019-11-26] MEDS: NA CHLORIDE 0.9% 1,000 ML IV SCH (16:48)
[2019-11-26] MEDS ORDERED: PNEUMOCOCCAL VACCINE 0.5 ML IMVAC ONE (17:00)
[2019-11-26] MEDS: ACETAMINOPHEN 500 MG TAB PO PRN (18:12)
[2019-11-26] MEDS ORDERED: POTASSIUM CL SA 10 MEQ TAB PO ONE (19:24)
[2019-11-27] MEDS: HYDRALAZINE HCL 20 MG/ML VIAL IV PRN ×2 (00:26→05:39)
[2019-11-27] MEDS: NA CHLORIDE 0.9% 1,000 ML IV SCH ×3 (00:55→21:25)
[2019-11-27 04:07] LABS: Absolute Lymphocytes (CBC) 1.3 K/uL (0.7-4.9); Basophils % 0.4 % (0-1.3); Hematocrit 43.2 % (39.6-49.0); Lymphocytes % 17.1 % (15.3-44.8); MPV 8.5 fL (7.6-11.3); RBC Red Blood Cell Count 4.54 M/uL (4.33-5.43)
[2019-11-27 04:48] LABS: Albumin 2.8 g/dL (3.4-5.0); Bilirubin Total 0.6 mg/dL (0.2-1.0); Potassium 3.9 mmol/L (3.5-5.1); Protein, Total 6.9 g/dL (6.4-8.2)
[2019-11-27] MEDS ORDERED: POTASSIUM CL SA 10 MEQ TAB PO ONE (05:06)
[2019-11-27 05:21] LABS: Blood Morphology Comment NOT SEEN (NOT SEEN); Platelet Estimate ADEQ
[2019-11-27] MEDS: ONDANSETRON 4 MG/2 ML VIAL IV PRN ×3 (05:34→21:25)
[2019-11-27] MEDS: ACETAMINOPHEN 500 MG TAB PO PRN (05:34)
[2019-11-27] MEDS: LOPERAMIDE HCL 2 MG CAPSULE PO PRN ×3 (07:55→21:26)
[2019-11-27] MEDS: CLONIDINE HCL 0.3 MG TAB PO SCH ×2 (13:17→21:26)
[2019-11-27 14:13] LABS: C.diff Antigen/Toxin Ag neg : Tox neg (NEG : NEG)
--- NOTE | 2019-11-27 16:50 | P.PN ---
Subjective Date of Service: 11/27/19 Primary Care Provider: Dr. Escoto Chief Complaint: CHASTITY, nausea/vomiting Subjective: No new changes (Continues with nausea and vomiting, and diarrhea. Feels food goes right through him) Review of Systems 10-point ROS is otherwise unremarkable Physical Examination - Vital Signs Temperature: 97.9 F Blood Pressure: 133/89 Pulse: 92 Respirations: 18 Pulse Ox (%): 97 - Physical Exam General: Alert, In no apparent distress HEENT: Atraumatic, PERRLA, EOMI Neck: Supple, JVD not distended Respiratory: Clear to auscultation bilaterally, Normal air movement Cardiovascular: Regular rate/rhythm, Normal S1 S2 Gastrointestinal: Normal bowel sounds, Soft and benign, Non-distended, No ten derness Musculoskeletal: No erythema, No tenderness Integumentary: No rashes, No breakdown Neurological: Normal speech, Normal affect Assessment & Plan Physician Review Additional Text: CHASTITY on CKDIII nausea/vomiting/diarrhea Hypertension Coronary artery disease status post stenting CKD 3 BPH Hyperlipidemia CHASTITY on CKD III -likely prerenal as patient has been unable to tolerate much p.o. -continue maintenance IV fluids, improvement in creatinine function -creatinine baseline seems to be just under 2 nausea/vomiting/diarrhea -unclear etiology, has been going on for 3 weeks, no bleeding -has lost 10 lb -CT abdomen/pelvis normal common no acute infection/diverticulitis seen, patient does not appear septic -reports is been several months since his last antibiotic exposure, low risk for C diff, and no leukocytosis -advance diet as tolerated -C. diff negative -Zofran did not offer much relief, will increase Imodium -does not have history of IBS or IBD -no improvement overnight, given his inability to keep p.o. down and has an CHASTITY, will consult GI -suspect patient will only continue to lose weight and have worsening kidney function if he was discharged home today Hypertension - continued home meds Coronary artery disease status post stenting -continue home meds BPH - continue home meds Hyperlipidemia -continue home meds Dispo: GI consult, hopefully has improvement in symptoms Time Spent Managing Pts Care (In Minutes): 30
[2019-11-27] MEDS ORDERED: ATORVASTATIN 10 MG TAB PO SCH (21:00)
[2019-11-27] MEDS ORDERED: HOME MED 1 EA UNK (Simvastatin [Simvastatin] 1 TAB) PO SCH (21:00)
[2019-11-28 04:02] LABS: Absolute Lymphocytes (CBC) 1.2 K/uL (0.7-4.9); Basophils % 0.5 % (0-1.3); Hematocrit 38.4 % (39.6-49.0); Lymphocytes % 20.1 % (15.3-44.8); MPV 8.6 fL (7.6-11.3); RBC Red Blood Cell Count 4.05 M/uL (4.33-5.43)
[2019-11-28 04:17] LABS: Albumin 2.5 g/dL (3.4-5.0); Bilirubin Total 0.7 mg/dL (0.2-1.0); Potassium 4.2 mmol/L (3.5-5.1); Protein, Total 5.8 g/dL (6.4-8.2)
[2019-11-28] MEDS: NA CHLORIDE 0.9% 1,000 ML IV SCH (07:00)
[2019-11-28] MEDS ORDERED: HOME MED 1 EA UNK (Metoprolol Tartrate [Metoprolol Tartrate] 1 TAB) PO SCH (09:00)
[2019-11-28] MEDS ORDERED: AMLODIPINE 5 MG TAB PO SCH (09:00)
[2019-11-28] MEDS ORDERED: TAMSULOSIN 0.4 MG SR CAP PO SCH (09:00)
[2019-11-28] MEDS ORDERED: FINASTERIDE 5 MG TAB PO SCH (09:00)
[2019-11-28] MEDS ORDERED: ASPIRIN 81 MG CHEWABLE TABLET PO SCH (09:00)
[2019-11-28] MEDS ORDERED: METOPROLOL TAR 50 MG TAB PO SCH (09:00)
[2019-11-28] MEDS: LOPERAMIDE HCL 2 MG CAPSULE PO PRN ×2 (09:08→14:14)
[2019-11-28] MEDS: CLONIDINE HCL 0.3 MG TAB PO SCH ×2 (09:09→14:14)
[2019-11-28 09:19] VITALS: O2SAT 97
[2019-11-28 12:16] VITALS: BP 104/61; TEMP 97.2
--- NOTE | 2019-11-28 13:47 | P.DS ---
Admission Date: 11/26/19 Discharge Date: 11/28/19 Primary Care Provider: Dr. Esocto Disposition: ROUTINE DISCHARGE Discharge Condition: GOOD Reason for Admission: CECILIO, nausea/vomiting Procedures: Problem list CECILIO on CKDIII nausea/vomiting/diarrhea Hypertension Coronary artery disease status post stenting CKD 3 BPH Hyperlipidemia Brief History of Present Illness: The patient presents to the ED with persistent nausea, vomiting, and diarrhea for the past 3 weeks. He reports inability to keep most things down after eating/tracking. Most of the time and some paternal within a few hr of eating. There has been having diarrhea approximately every 2 hr, described as very small amounts of watery stool. His diarrhea is typically preceded by abdominal cramping and pain, unrelieved with his bowel movement. He has not tried anything else for this. He has been able to drink some water and sprite. In the ED, CBC was unremarkable, BMP was notable for mild hypokalemia (3.4), an EKG i.e. (creatinine: 2.42), lipase was normal, LFTs normal. Vitals notable for hypertension: 180s/90s. Patient did not take any of his medications today CXR: No acute cardiopulmonary process CT abdomen/pelvis with contrast: No evidence of diverticulitis, appendectomy, TURP procedure. No acute abnormality is displayed Hospital Course: He was admitted for IV fluids for his Cecilio, and further evaluation of his diarrhea. Home medications were reviewed, and his Mag ox was discontinued, and patient was started on Imodium. Overnight patient reported significant improvement, went several hr without having the diarrhea episodes. He was able to tolerate the full liquid diet. On day of discharge she had not had a bowel movement and nearly 10 hr. He still endorsed intermittent nausea. He was C. diff negative He was discharged home with Imodium and Zofran, to follow up with is PCP. His diarrhea worsens/persists he is to follow up with GI Vital Signs/Physical Exam: Temp Pulse Resp BP Pulse Ox 97.2 F 55 16 104/61 98 11/28/19 12:00 11/28/19 12:00 11/28/19 12:00 11/28/19 12:00 11/28/19 12:00 General: Alert, In no apparent distress HEENT: PERRLA, EOMI, Sclerae nonicteric Neck: Supple, JVD not distended Respiratory: Clear to auscultation bilaterally, Normal air movement Cardiovascular: Regular rate/rhythm, Normal S1 S2 Gastrointestinal: Normal bowel sounds, Soft and benign, Non-distended, No tenderness Musculoskeletal: No tenderness Integumentary: No rashes Neurological: Normal speech, Normal tone, Normal affect Laboratory Data at Discharge: WBC 6.0 K/uL (4.3-10.9) D 11/28/19 03:21 Hgb 12.7 g/dL (13.6-17.9) L 11/28/19 03:21 Hct 38.4 % (39.6-49.0) L 11/28/19 03:21 Plt Count 203 K/uL (152-406) 11/28/19 03:21 Sodium 146 mmol/L (136-145) H 11/28/19 03:21 Potassium 4.2 mmol/L (3.5-5.1) 11/28/19 03:21 BUN 26 mg/dL (7-18) H 11/28/19 03:21 Creatinine 2.04 mg/dL (0.55-1.3) H 11/28/19 03:21 Glucose 93 mg/dL (74-106) 11/28/19 03:21 Magnesium 2.0 mg/dL (1.8-2.4) 11/27/19 03:17 Total Bilirubin 0.7 mg/dL (0.2-1.0) 11/28/19 03:21 AST 19 U/L (15-37) 11/28/19 03:21 ALT 25 U/L (12-78) 11/28/19 03:21 Alkaline Phosphatase 45 U/L (45-117) 11/28/19 03:21 Lipase 120 U/L (73-393) 11/26/19 12:00 Home Medications: Amlodipine [Norvasc*] 1 tab PO DAILY 11/26/19 Aspirin 1 tab PO DAILY 11/26/19 Clonidine HCl [Catapres] 1 tab PO TID 11/26/19 Finasteride 1 tab PO DAILY 11/26/19 Metoprolol Tartrate 1 tab PO DAILY 11/26/19 Simvastatin 1 tab PO BEDTIME 11/26/19 Tamsulosin [Flomax*] 1 tab PO DAILY 11/26/19 Loperamide [Imodium*] 2 mg PO Q4H PRN 14 Days #60 cap 11/28/19 Ondansetron [Zofran] 4 mg PO Q6H PRN 5 Days #20 tab 11/28/19 New Medications: Loperamide [Imodium*] 2 mg PO Q4H PRN 14 Days #60 cap PRN Reason: Diarrhea Ondansetron [Zofran] 4 mg PO Q6H PRN 5 Days #20 tab PRN Reason: Nausea / Vomiting Patient Discharge Instructions: follow up with PCP within 1 week. If diarrhea and nausea persist, follow up with GI doctors. Take Loperamide (Imodium), 1 tablet after diarrhea episode up to 5 times/day. Stop taking Magnesium. Diet: [place] Activity: Ad frederick Followup: Noelle Escoto DO [Primary Care Provider] - 1 Week (PCP- call to schedule an appointment ) Time spent managing pt's care (in minutes): 35
== END 2019-11-28 15:30 | disposition home or self-care (01) ==
LOC: ER 11:18 → ERHOLD 14:23 → 4TH 14:57
PROVIDERS: ADMIT Hospitalist; ATTEND Hospitalist
DX: N17.9 Acute kidney failure, unspecified (principal); I12.9 Hypertensive chronic kidney disease with stage 1 through stage 4 chronic kidney disease, or unspecified chronic kidney disease; N18.3 Chronic kidney disease, stage 3 (moderate); R11.2 Nausea with vomiting, unspecified; R19.7 Diarrhea, unspecified; I25.10 Atherosclerotic heart disease of native coronary artery without angina pectoris; Z95.5 Presence of coronary angioplasty implant and graft; N40.0 Benign prostatic hyperplasia without lower urinary tract symptoms; E78.5 Hyperlipidemia, unspecified; E87.6 Hypokalemia; Z79.899 Other long term (current) drug therapy
CPT/HCPCS: 96361; 85025 ×3; 80048; 36415 ×2; 83735; 80076; 87324; 83690; 80053 ×2; 87449; 74177; 71045; 94760 ×6; 96375; 96374; 99285; Q9967; J0360 ×2; J7040; J7030 ×4; J2405 ×4; G0378 ×4

== ENCOUNTER 2020-12-23 13:19 | Emergency (ER) | payer OTHER ==
[2020-12-23 14:36] LABS: Absolute Lymphocytes (CBC) 1.5 K/uL (0.7-4.9); Basophils % 0.6 % (0-1.3); Hematocrit 37.3 % (39.6-49.0); Lymphocytes % 21.6 % (15.3-44.8); MPV 8.9 fL (7.6-11.3); RBC Red Blood Cell Count 3.88 M/uL (4.33-5.43)
[2020-12-23 14:55] LABS: Albumin 3.9 g/dL (3.4-5.0); Bilirubin Direct 0.2 mg/dL (0-0.2); Bilirubin Total 0.5 mg/dL (0.2-1.0); Potassium 3.6 mmol/L (3.5-5.1); Protein, Total 7.5 g/dL (6.4-8.2)
[2020-12-23] MEDS ORDERED: NACL 0.9% IRR SOLN 2,000 ML IRR ONE ×5 (15:07→22:11)
[2020-12-23 15:27] LABS: Urine Bacteria <20 /HPF (NONE SEEN); Urine RBC TNTC /HPF (NONE SEEN)
--- NOTE | 2020-12-23 15:39 | RAD REPORT ---
EXAM DESCRIPTION: CT - Stone Protocol - 12/23/2020 3:26 pm CLINICAL HISTORY: Hematuria COMPARISON: 2019 TECHNIQUE: Computed axial tomography of the abdomen pelvis was obtained without oral or IV contrast. Lack of IV and oral contrast limits evaluation of solid organs, bowel, and vessels. Coronal reformat clif images were obtained and reviewed. All CT scans are performed using dose optimization technique as appropriate and may include automated exposure control or mA/KV adjustment according to patient size. FINDINGS: Small hepatic cysts Small renal cysts. Tiny renal calculi. Urinary calculus is not noted. No bladder calculus. No hydrone phrosis. The spleen, pancreas and adrenals unremarkable There is no evidence of diverticulitis. A TURP procedure. Appendectomy. A Cavazos catheter is present w ithin the bladder. The prostate gland is enlarged. Spondylosis involves lumbar spine resulting in spinal stenosis Small umbilical hernia IMPRESSION: Tiny nonobstructing renal calculi
--- NOTE | 2020-12-23 17:46 | EDPHYS ---
Physician Documentation [facility] Name: Quinn Crane Jr Age: 75 yrs Sex: Male : 1945 Arrival Date: 12/23/2020 Time: 13:22 Bed 6 Private MD: Noelle Escoto ED Physician Lalo Hansen HPI: 12/23 17:09 This 75 yrs old Black Male presents to ER via Ambulatory with complaints of Urinary jmm Problem. 17:09 Onset: The symptoms/episode began/occurred gradually, 7 day(s) ago. Modifying factors: jmm The symptoms are alleviated by nothing, the symptoms are aggravated by nothing. This is a 75-year-old male with a history of hyperlipidemia, hypertension, that presents emerged part with complaints of hematuria beginning approximately 7 days ago. Patient states symptoms worsened about 3 days ago. Patient states he discontinued his aspirin. Patient states he does not take any other blood thinners. Denies fever. Patient states that it does burn when he urinates. Denies vomiting, abdominal pain. Historical: - Allergies: 13:30 No Known Allergies; vg1 - Home Meds: 13:30 aspirin 81 mg Oral TbEC 1 tab once daily [Active]; clonidine HCl 0.1 mg Oral tab 2 tabs vg1 2 times per day [Active]; clopidogrel Oral once daily [Active]; Enalapril Oral 1 tab once daily [Active]; Metoprolol Tartrate Oral 1 tab once daily [Active]; Minoxidil Oral 1 tab once daily [Active]; prasugrel Oral 1 tab once daily [Active]; Simvastatin Oral 1 tab once daily [Active]; tamsulosin Oral 1 cap once daily [Active]; - PMHx: 13:30 Hyperlipidemia; Hypertension; prostate problems; vg1 - Immunization history:: Adult Immunizations up to date, Client reports receiving the 2nd dose of the Covid vaccine. - Social history:: Smoking status: Patient denies any tobacco usage or history of. ROS: 17:09 Constitutional: Negative for fever, chills, and weight loss, Cardiovascular: Negative jmm for chest pain, palpitations, and edema, Respiratory: Negative for shortness of breath, cough, wheezing, and pleuritic chest pain. 17:09 : Positive for urinary symptoms. 17:09 All other systems are negative. Exam: 17:09 Constitutional: This is a well developed, well nourished patient who is awake, alert, jmm and in no acute distress. Head/Face: atraumatic. Eyes: EOMI, no conjunctival erythema appreciated ENT: Moist Mucus Membranes Neck: Trachea midline, Supple Chest/axilla: Normal chest wall appearance and motion. Cardiovascular: Regular rate and rhythm. No edema appreciated Respiratory: Normal respirations, no respiratory distress appreciated Abdomen/GI: Non distended, soft Back: Normal ROM Skin: General appearance color normal MS/ Extremity: Moves all extremities, no obvious deformities appreciated, no edema noted to the lower extremities Neuro: Awake and alert, normal gait Psych: Behavior is normal, Mood is normal, Patient is cooperative and pleasant Vital Signs: 13:28 BP 172 / 89; Pulse 67; Resp 16; Temp 97.6; Pulse Ox 100% ; Weight 99.79 kg; Height 5 vg1 ft. 11 in. (180.34 cm); Pain 5/10; 16:43 BP 159 / 92; Pulse 56; Resp 16; ll1 20:01 BP 148 / 85; Pulse 68; Resp 18; wg 10 00:50 BP 140 / 80; Pulse 70; Resp 18; Pulse Ox 98% on R/A; ea 12/23 13:28 Body Mass Index 30.68 (99.79 kg, 180.34 cm) vg1 MDM: 12/23 14:29 Patient medically screened. [facility] 17:12 Data reviewed: vital signs, nurses notes. Counseling: I had a detailed discussion with [facility] the patient and/or guardian regarding: the historical points, exam findings, and any diagnostic results supporting the discharge/admit diagnosis, lab results, radiology results, the need for outpatient follow up, to return to the emergency department if symptoms worsen or persist or if there are any questions or concerns that arise at home. ED course: I discussed labs with Dr. Shakeel lynn who will follow with the patient for further evaluation. Patient states feeling much better. Blood has cleared after irrigation. Patient advised to follow-up with urology and otherwise given strict return precautions. Patient understood and agrees to plan of care.. 23:12 ED course: I was called by the nurse to see the patient, he has persistent hematuria, I ma2 assume care since the attending physician is the left, and I took over. Patient has persistent hematuria despite bladder irrigation with almost 10 L. Will transfer to higher level of care since we did not have the urology service at this hospital.. 12/24 00:25 ED course: accepted. ma2 12/23 13:58 Order name: Basic Metabolic Panel; Complete Time: 14:55 [facility] 12/23 13:58 Order name: CBC with Diff; Complete Time: 14:44 [facility] 12/23 13:58 Order name: Hepatic Function; Complete Time: 14:55 [facility] 12/23 13:58 Order name: Lipase; Complete Time: 14:55 [facility] 12/23 13:58 Order name: Urine Culture [facility] 12/23 13:58 Order name: IV Saline Lock; Complete Time: 14:04 [facility] 12/23 13:58 Order name: Labs collected and sent; Complete Time: 14:04 [facility] 12/23 13:58 Order name: Urine Dipstick-Ancillary (obtain specimen); Complete Time: 14:46 [facility] 12/23 14:57 Order name: CT Stone Protocol; Complete Time: 15:41 [facility] 12/23 15:06 Order name: Urine Microscopic Only; Complete Time: 15:41 [facility] 12/23 22:49 Order name: SARS-COV-2 RT PCR; Complete Time: 23:56 [facility] 12/23 14:29 Order name: Ortega-Three way; Complete Time: 14:46 [facility] 12/23 14:29 Order name: Misc. Order: ortega irrigation; Complete Time: 15:07 [facility] 12/23 16:56 Order name: Misc. Order: remove ortega; Complete Time: 17:05 [facility] Administered Medications: 12/23 22:30 Drug: Tylenol 1000 mg Route: PO; ea Disposition: 18:19 Co-signature as Attending Physician, Lalo Hansen MD I agree with the assessment and rn plan of care. Attestation: The patient's history, exam findings, diagnostics, and a summary of any interventions or procedures was reviewed in detail with Milton MONTES. Disposition Summary: 12/23/20 23:11 Transfer Ordered Transfer Location: Other Acute Care Facility ma2 Reason: Higher level of care ma2 Condition: Stable(12/23/20 23:11) ma2 Problem: new ma2 Symptoms: are unchanged ma2 Accepting Physician: urologist dr. Stephens(12/24/20 01:01) bari Diagnosis - Gross hematuria(12/23/20 23:11) ma2 Forms: - Medication Reconciliation Form ma2 - SBAR form ma2 Signatures: Dispatcher [employer] EDMS Milton Barros PA PA jmm Nieto, Roman, MD MD rn Travis Christensen PA PA cp Antunez, Elena, RN RN Mauro Huntley MD MD ma2 Loreta Henao RN RN vg1 Corrections: (The following items were deleted from the chart) 15:06 14:46 URINALYSIS+U.LAB.BRZ ordered. EDMS EDMS 20:37 17:45 Home [facility] wg 20:37 17:45 Stable [facility] 20:37 17:45 Gross hematuria [facility] 21:58 21:43 CORONAVIRUS+MR.LAB.BRZ ordered. EDMS EDMS 23:57 23:11 [facility] 12/24 01:01 12/23 23:[address] Stephens [facility] bari
--- NOTE | 2020-12-23 17:46 | ER ---
Nurse's Notes [facility] Name: Quinn Crane Jr Age: 75 yrs Sex: Male : 1945 Arrival Date: 12/23/2020 Time: 13:22 Bed 6 Private MD: Noelle Escoto Diagnosis: Gross hematuria Presentation: 12/23 13:28 Chief complaint: Patient states: For about a week patient states has been having vg1 burning sensation upon urination; stated blood in the urine as well as clots. Denies NV. Coronavirus screen: Vaccine status: Patient reports receiving the 2nd dose of the covid vaccine. Ebola Screen: Patient negative for fever greater than or equal to 101.5 degrees Fahrenheit, and additional compatible Ebola Virus Disease symptoms. Initial Sepsis Screen: Does the patient meet any 2 criteria? No. Patient's initial sepsis screen is negative. Does the patient have a suspected source of infection? No. Patient's initial sepsis screen is negative. Risk Assessment: Do you want to hurt yourself or someone else? Patient reports no desire to harm self or others. Onset of symptoms was December 16, 2020. 13:28 Method Of Arrival: Ambulatory vg1 13:28 Acuity: FRANKLIN 3 vg1 Triage Assessment: 13:30 General: Appears in no apparent distress. comfortable, Behavior is calm, cooperative. vg1 Pain: Complains of pain in groin and left femoral area Pain currently is 5 out of 10 on a pain scale. Historical: - Allergies: 13:30 No Known Allergies; vg1 - Home Meds: 13:30 aspirin 81 mg Oral TbEC 1 tab once daily [Active]; clonidine HCl 0.1 mg Oral tab 2 tabs vg1 2 times per day [Active]; clopidogrel Oral once daily [Active]; Enalapril Oral 1 tab once daily [Active]; Metoprolol Tartrate Oral 1 tab once daily [Active]; Minoxidil Oral 1 tab once daily [Active]; prasugrel Oral 1 tab once daily [Active]; Simvastatin Oral 1 tab once daily [Active]; tamsulosin Oral 1 cap once daily [Active]; - PMHx: 13:30 Hyperlipidemia; Hypertension; prostate problems; vg1 - Immunization history:: Adult Immunizations up to date, Client reports receiving the 2nd dose of the Covid vaccine. - Social history:: Smoking status: Patient denies any tobacco usage or history of. Screenin:19 Abuse screen: Denies threats or abuse. Nutritional screening: No deficits noted. ll1 Tuberculosis screening: No symptoms or risk factors identified. Fall Risk IV access (20 points). Ambulatory Aid- Crutches/Cane/Walker (15 pts). Total Vides Fall Scale indicates Low Risk Score (25-44 pts). Fall prevention measures have been instituted. Side Rails Up X 2 Frequent Obs/Assesments occuring As available Patient and Family Educated on Fall Prevention Program and strategies. Assessment: 14:18 General: Appears in no apparent distress. Behavior is calm, cooperative, appropriate ll1 for age. Pain: Denies pain. Neuro: No deficits noted. Cardiovascular: No deficits noted. Respiratory: No deficits noted. GI: No deficits noted. : Reports burning with urination, pain in suprapubic area urgency. 14:18 : Reports blood and blood clots in his urine. ll1 14:46 : Urine is hernesto blood. ll1 15:45 Reassessment: No changes from previously documented assessment. Patient and/or family ll1 updated on plan of care and expected duration. Pain level reassessed. Patient is alert, oriented x 3, equal unlabored respirations, skin warm/dry/pink. 16:42 Reassessment: No changes from previously documented assessment. Patient and/or family ll1 updated on plan of care and expected duration. Pain level reassessed. Patient is alert, oriented x 3, equal unlabored respirations, skin warm/dry/pink. 17:45 Reassessment: No changes from previously documented assessment. Patient and/or family ll1 updated on plan of care and expected duration. Pain level reassessed. Patient is alert, oriented x 3, equal unlabored respirations, skin warm/dry/pink. 18:55 Reassessment: Unable to pass [address] way Ortega without significant resistance. Dr. Hansen ll1 informed. 19:56 Reassessment: 18fr triple lumen ortega inserted and connected to 3000ml irrigation. Pt wg tolerated procedure well. Good initial return (approx 500ml) of hernesto bloody output which turned into a blood tinged fluid during the irrigation process. Pt relaxed watching TV while being irrigated. 20:35 Reassessment: Ortega bag emptied \R\3L of fairly dark bloody fluid. Another 3L irrigation wg hung per Dr. Justin. Pt tolerating well. 12/24 00:59 Reassessment: Patient and/or family updated on plan of care and expected duration. Pain ea level reassessed. Patient is alert, oriented x 3, equal unlabored respirations, skin warm/dry/pink. Report given to receiving nurse at [facility], pt left ED via stretcher per EMS, pt tolerating well. Vital Signs: 12/23 13:28 BP 172 / 89; Pulse 67; Resp 16; Temp 97.6; Pulse Ox 100% ; Weight 99.79 kg; Height 5 vg1 ft. 11 in. (180.34 cm); Pain 5/10; 16:43 BP 159 / 92; Pulse 56; Resp 16; ll1 20:01 BP 148 / 85; Pulse 68; Resp 18; wg 12/24 00:50 BP 140 / 80; Pulse 70; Resp 18; Pulse Ox 98% on R/A; ea 12/23 13:28 Body Mass Index 30.68 (99.79 kg, 180.34 cm) vg1 ED Course: 12/23 13:22 Patient arrived in ED. mr 13:22 Noelle Escoto MD is Private Physician. mr 13:30 Triage completed. vg1 13:30 Arm band placed on Patient placed in waiting room, Patient notified of wait time. vg1 13:56 Patient placed in an exam room, on a stretcher. ld1 13:58 Milton Barros PA is PHCP. jm 13:58 Lalo Hansen MD is Attending Physician. [facility] 14:08 Missed attempt(s): 22 gauge in left forearm. Bleeding controlled, band aid applied, ll1 catheter tip intact. 14:10 Inserted saline lock: 22 gauge in right forearm, using aseptic technique. Blood ll1 collected. 14:17 Maxwell Singh RN is Primary Nurse. ll1 14:19 Patient has correct armband on for positive identification. Bed in low position. Call ll1 light in reach. Side rails up X 1. Cardiac monitoring not applicable on this patient. 14:47 Maxwell Singh RN is Primary Nurse. ll1 15:14 Bladder irrigated via Ortega with 1 liter normal saline returned hernesto blood Patient ll1 tolerated well. 15:26 CT Stone Protocol In Process Unspecified. EDMS 15:49 Bladder irrigated with 900 ml returned bloody urine, slightly more clear. 900 ml ll1 output. Tolerated well. 15:58 Bladder irrigated with 1 liter normal saline returned 1000 ml output. Patient tolerated ll1 well. 16:42 Bladder irrigated via Ortega with 2850 normal saline returned pink urine Patient ll1 tolerated well. 17:05 Bladder irrigated via Ortega with 1 liter normal saline returned pink urine Patient ll1 tolerated well. 17:09 Patient tolerated well. Ortega cath removed intact, balloon deflated. ll1 17:44 Celestine Sandhu DO is Referral Physician. reagan 18:04 Awaiting: urinated approximately 100 ml of red urine with clots in it. More ll1 concentrated with blood than when we discontinued his ortega. Dr. Hansen informed. Will continue to monitor. 23:07 initiated a transfer with Clay from [facility]. mw2 23:17 [facility] denied due to capacity. mw2 23:31 the Urologist called to do doc to doc with Dr. Santacruz, but he was in the middle of a mw2 procedure will call back as soon as possible. 23:35 initiated a transfer with Theresa from [facility]. mw2 23:[address] Santacruz with the Urologist from [facility]. mw2 12/24 00:[address] Santacruz with Dr. Tam from [facility]. mw2 00:27 administrative approval given by Theresa Castaneda/ patient has been accepted to [address] bed 1623/ Dr. Tam accepted the patient in transfer/ report to be called to [phone]. 01:00 No provider procedures requiring assistance completed. Patient transferred, IV remains ea in place. Administered Medications: 12/23 22:30 Drug: Tylenol 1000 mg Route: PO; ea Outcome: 17:45 Discharge ordered by MD. kirk 23:11 ER care complete, transfer ordered by MD. dumont 12/24 01:00 Transferred by ground EMS to [facility], Transfer form completed. ea Condition: stable Instructed on the need for transfer, Demonstrated understanding of instructions. 01:01 Patient left the ED. ea Signatures: Dispatcher [employer] EDMS Milton Barros PA PA jmkaty Zuñiga, Radha mr ReneeBertha carbajal, RN Mauro Magana ea, MD MD nm2 Margaret Reglaado 2 Loreta Henao, RN RN 1 Maxwell Singh, RN RN 1 Shawnee Ferro RN RN 1 Marco Salazar RN wg Corrections: (The following items were deleted from the chart) 12/23 13:34 13:30 Arm band placed on vg1 vg1 14:19 14:18 Respiratory: No deficits noted. ll1 ll1 21:58 21:51 CORONAVIRUS+MR.LAB.BRZ drawn and sent. yoli EDMS 23:53 23:[address] Santacruz with the Urologist from [facility] mw2 mw2
[2020-12-23] MEDS ORDERED: ACETAMINOPHEN 325 MG TABLET ONE (23:03)
[2020-12-24 01:08] VITALS: TEMP 97.6
[2020-12-24 01:11] VITALS: BP 140/80; O2SAT 98
== END 2020-12-24 01:01 ==
LOC: ER 13:19
DX: R31.0 Gross hematuria (principal); I10 Essential (primary) hypertension; N42.9 Disorder of prostate, unspecified; E78.5 Hyperlipidemia, unspecified; Z20.822 Contact with and (suspected) exposure to COVID-19; Z79.82 Long term (current) use of aspirin
CPT/HCPCS: 87088; 85025; 87086; 80048; 36415; 80076; 81015; 83690; 76377; 74176; 51700; 99285; U0003

== ENCOUNTER 2021-05-03 06:31 | Day surgery (SDC) | payer OTHER ==
[2021-04-29 14:35] LABS: Hematocrit 40.8 % (39.6-49.0); RBC Red Blood Cell Count 4.31 M/uL (4.33-5.43)
[2021-04-29 14:36] LABS: Absolute Lymphocytes (CBC) 1.3 K/uL (0.7-4.9); Lymphocytes % 22.3 % (15.3-44.8); MPV 8.5 fL (7.6-11.3)
[2021-04-29 14:37] LABS: Protime INR 1.03
[2021-04-29 14:39] LABS: Urine Appearance CLEAR (Clear); Urine Bilirubin NEGATIVE (Negative); Urine Blood NEGATIVE (Negative); Urine Color YELLOW (Yellow); Urine Glucose NEGATIVE (Negative); Urine Protein NEGATIVE (Negative); Urine Specific Gravity 1.015 (1.005-1.030); Urine Urobilinogen 0.2 mg/dL (0.2-1.0)
--- NOTE | 2021-04-29 14:53 | RAD REPORT ---
EXAM DESCRIPTION: RAD - Chest Pa And Lat (2 Views) - 04/29/2021 2:47 pm CLINICAL HISTORY: PREOP Chest pain. COMPARISON: Chest Single View dated 11/26/2019; Chest Single View dated 09/18/2019; Chest Pa And Lat (2 Views) dated 03/01/2016; CHEST SINGLE VIEW dated 10/18/2013 FINDINGS: The lungs are clear. The heart is upper limit of normal in size. No displaced fractures. M ildly tortuous thoracic aorta. IMPRESSION: No acute or concerning finding suspected.
[2021-04-29 15:00] LABS: Urine Microscopic Reflex NO UMIC
[2021-04-29 15:30] LABS: Potassium 3.8 mmol/L (3.5-5.1)
--- NOTE | 2021-05-01 14:46 | EKG ---
Test Date: 2021-04-29 Test Time: 14:31:10 Pharmacy Technician Infusion: TIARA MEASUREMENT RESULTS: Intervals: Rate: 51 AR: 208 QRSD: 104 QT: 474 QTc: 436 [place]: P: 51 AR: 208 QRS: -29 T: 137 INTERPRETIVE STATEMENTS: Sinus bradycardia Left ventricular hypertrophy with repolarization abnormality Abnormal ECG Compared to ECG 06/15/2016 14:54:19 Early repolarization now present Sinus rhythm no longer present Electronically Signed On 05-01-21 14:44:48 [employer] by Inocente Chiu
[2021-05-03] MEDS ORDERED: Ringers Lactate 1,000 ML IV ONE (06:37)
[2021-05-03] MEDS ORDERED: ACETAMINOPHEN 500 MG TAB ONE (07:11)
[2021-05-03] MEDS ORDERED: FENTANYL CITR 100 MCG/2 ML ONE ×3 (07:19→13:02)
[2021-05-03] MEDS ORDERED: LIDOCAINE 1% MPF 5 ML VIAL ONE ×2 (07:20→13:02)
[2021-05-03] MEDS ORDERED: propofoL 200 MG/20 ML VIAL IV ONE ×2 (07:20→13:02)
[2021-05-03] MEDS ORDERED: CODEINE 30MG/APAP 300MG TAB PO PRN (07:43)
[2021-05-03] MEDS ORDERED: OPIUM/BELLADONNA SUPPOS (30-16.2 MG) PR ONE ×2 (07:43→09:59)
[2021-05-03] MEDS ORDERED: ONDANSETRON 4 MG/2 ML VIAL ONE ×2 (07:58→10:03)
[2021-05-03] MEDS ORDERED: Gentamicin Inj 200 MG in NA CHLORIDE 0.9% 100 ML IV SCH (08:00)
[2021-05-03] MEDS ORDERED: AMPICILLIN SODIUM 2 GM in NA CHLORIDE 0.9% 100 ML IVPB SCH (08:00)
[2021-05-03] MEDS ORDERED: EPHEDRINE SULF 50 MG/ML VIAL ONE (08:04)
[2021-05-03] MEDS ORDERED: NS 0.9% VIAL 10 ML ONE (08:05)
[2021-05-03] MEDS ORDERED: HYDROMORPHONE HCL 1 MG/ML INJ ONE (10:03)
[2021-05-03 10:34] VITALS: O2SAT 100
[2021-05-03] MEDS ORDERED: CODEINE 30MG/APAP 300MG TAB ONE (10:44)
[2021-05-03 11:09] VITALS: TEMP 97
[2021-05-03 11:57] VITALS: BP 162/70
--- NOTE | 2021-05-03 13:19 | OP ---
Surgeon: SILVIO PATTERSON Preoperative Diagnosis: Benign prostatic hypertrophy with lower urinary tract obstruction. Postoperative Diagnoses: 1.Benign prostatic hypertrophy with lower urinary tract obstruction. 2.False posterior urethral passage. 3.Mid pendulous urethral stricture disease. Principle Procedures: 1.Bipolar transurethral resection of the prostate. 2.Cystoscopy and urethral dilation over a wire. Indication For Procedure: Mr. Crane is a 75-year-old gentleman, who had undergone prior TURP by Dr. Kirby several years ago, but yet had persistent bothersome urinary symptoms. He underwent outpatien t cystoscopy revealing a high anterior channel with significant fusion of the lateral lobes apically and medially within the prostate. He was counseled that to further improve his urinary symptoms, a b ipolar TURP would be required as he was already taking finasteride and Flomax. Procedure In Detail: The patient was consented in the preoperative holding area before being transfe rred to operative suite where general anesthesia was induced. He was given ampicillin 2 g and gentam icin 200 mg IV antimicrobial prophylaxis and pneumo boots were provided for DVT prophylaxis. He was placed in the lithotomy position, padded and secured to the table appropriately. His genitalia were prepped using Hibiclens and draped in standard fashion. The case was begun using urethral sounds to dilate the meatus and fossa navicularis to 30-Pashto. Then, using the visual obturator and the 26-Fr enc resectoscope, I passed the resectoscope into the urethra where a point of obstruction was met at the mid urethra. This was a circumferential urethral scarring, narrowing the urethral channel, proh ibiting passage of the 26-Pashto resectoscope. As a result, I passed the 22-Pashto rigid cystoscope via the urethra into the prostatic urethra where a significant false passage posteriorly was identifi ed along with fusion of the apical lateral lobes that made navigating in finding the anterior true rogelio men difficult. Eventually, I was able to find the lumen very superiorly within the prostate and cedrick gated via the approximately 20-Pashto opening into the true lumen of the bladder. There, I placed a Juristatson guidewire to guide passage of the subsequent resectoscope. I then reinserted the resectoscop e and navigated alongside the wire gently dilating the urethral stricture along the way before being able to successfully pass the resectoscope into the bladder. The wire was then removed, I switched t he visual obturator for the bipolar loop, and I then began resection of the prostate. There was significant intraluminal projection and remnant of a median lobe, which had previously been resected to degree on the prior TURP excursion. I resected the remainder of the median lobe down to the level of the bladder neck and continued that resection down more into the mid gland region of th e prostate eventually joining the false posterior lumen with the anterior lumen as I continued the re section of that elevated median bar down to the level of the verumontanum. Once a nice trough had be en created, I continued the resection at the level of the bladder neck on the left lateral lobe of th e prostate around to the anterior and then continued the dissection resecting the prostate from the m id gland region to the apex of the prostate from the median trough to the anterior zone of the prosta te. I then turned my attention and performed a similar resection on the right side initially at the level of the bladder neck and then from the midzone of the prostate to the apical zone of the prostat e taking care not to go beyond the verumontanum with the resection. Since the prostatic urethral abundio gth was at least 3-4 cm in length, staged resection was required. Once the majority of the tissue [place] d been resected, I then continued the apical lateral lobar resection so that those lobes were no long er overlapping and were resected only to where they were just barely kissing. I then continued to re sect extra prostatic urethral tissue to the level of the capsule of the prostate, which was visible l aterally and anteriorly within the prostate. The prostate chips were all Ellik evacuated from the bl adder, and I then carefully fulgurated the lumen of the prostatic urethra. All bleeding vessels were carefully fulgurated, and additional resection was performed where necessary to smooth the fossa. P rostate chips were again Ellik evacuated from the bladder, and additional fulguration was performed. At the end, I visualized both ureteral orifices, which were intact and uninjured. I thus carefully fulgurated the prostate fossa with no fluid inflow and with the bladder essentially decompressed unti l it was completely hemostatic and the drainage of fluid was clear. At this point, I individually re moved any residual prostate urethral chips, and I backfilled his bladder leaving it full with normal saline. I then removed the resectoscope, and was able to pass a 24-Pashto Cavazos catheter into his bl adder with relative ease with only some mild resistance at the level of the mid pendulous urethra whe re the prior stricture disease was noted. 50 cc of sterile water was placed in the balloon, and the efflux of urine was completely clear. The patient was taken out of the lithotomy position, the palma ter was placed to moderate traction, and he was connected to saline CBI at a slow moderate drip and t he returning efflux was completely clear. He was then transferred to a stretcher and then to the rec overy room in good condition. Complications: None. Discharge Disposition: Given the urethral stricture disease observed and dilated on the procedure to day, I would like to leave the catheter for at least 5-7 days to allow the stricture disease to hopef ully stabilize in an open configuration. As such, we will plan on a voiding trial next Sunday in the [facility]. BILL/KUSHAL Voice ID: [id number] Report ID: [id number]
== END 2021-05-03 12:05 | disposition home or self-care (01) ==
LOC: OR 06:31
PROVIDERS: ATTEND Urology
PROC: 0T7D8ZZ Dilation of Urethra, Via Natural or Artificial Opening Endoscopic (ICD-10-PCS; 2021-05-03)
PROC: 0VT08ZZ Resection of Prostate, Via Natural or Artificial Opening Endoscopic (ICD-10-PCS; principal; 2021-05-03 07:30)
DX: N40.1 Benign prostatic hyperplasia with lower urinary tract symptoms (principal); N35.811 Other urethral stricture, male, meatal; N36.5 Urethral false passage; Z20.822 Contact with and (suspected) exposure to COVID-19
CPT/HCPCS: 93005; 85025; 87086; 80048; 36415; 85610; 88305; 81003; 71046; 52601; 52281; U0003; J2704; J1580; J3010 ×2; J1170; J7120; J2405 ×2; J0290; 87088

== ENCOUNTER 2021-05-30 08:29 | Day surgery (SDC) | payer OTHER ==
[2021-05-30] MEDS ORDERED: Ringers Lactate 1,000 ML IV ONE (08:56)
[2021-05-30] MEDS ORDERED: propofoL 200 MG/20 ML VIAL IV ONE (09:23)
[2021-05-30] MEDS ORDERED: FENTANYL CITR 100 MCG/2 ML ONE (09:23)
[2021-05-30] MEDS ORDERED: dexAMETHasone 10 MG/ML VIAL ONE (09:23)
[2021-05-30] MEDS ORDERED: MIDAZOLAM HCL 2 MG/2 ML INJ ONE (09:23)
[2021-05-30] MEDS ORDERED: LIDOCAINE 2% MPF 5 ML VIAL ONE (09:24)
[2021-05-30] MEDS ORDERED: CEFAZOLIN SODIUM 1 GM/VIAL ONE (09:25)
[2021-05-30] MEDS ORDERED: GLYCOPYRROLATE 0.2 MG/ML SYR ONE (09:57)
[2021-05-30] MEDS ORDERED: Mastisol Adhesive Liq ONE (09:59)
--- NOTE | 2021-05-30 10:06 | P.BOP ---
Preoperative diagnosis: Tender upper back subQ mass 12x7 Postoperative diagnosis: same Primary procedure: Excisional biopsy Tender upper back subQ mass Estimated blood loss: <10cc Specimen: mass Findings: mass Anesthesia: General Complications: None Drain(s): NEGRITO drain
--- NOTE | 2021-05-30 10:51 | DS ---
Diagnosis: Tender upper back subcutaneous mass. Procedure: Excisional biopsy of tender upper back subcutaneous mass. Disposition: Home. Activity: As tolerated. No heavy lifting. Plan: Follow up in my office this Sunday. Call for appointment at [phone]. Keep area dry until se e me again. NEGRITO drain to bulb suction, record the output q.24 hours. ANTHONY/KUSHAL Voice ID: [id number] Report ID: [id number]
--- NOTE | 2021-05-30 10:51 | OP ---
Date of Procedure: 05/30/2021 Surgeon: Uche Rios MD Preoperative Diagnosis: Tender upper back subcutaneous mass, 12 x 7 cm. Postoperative Diagnosis: Tender upper back subcutaneous mass, 12 x 7 cm. Procedure: Excisional biopsy of tender upper back subcutaneous mass. Finding: A subcutaneous mass sitting just on top of the muscle. Fascia does not seem to be involved . Anesthesia: General plus local. Estimated Blood Loss: Less than 10 mL. Drains: NEGRITO #10. Indication: This is the case of a male, who comes to us with a tender upper back mass, increasing in size, giving pain and discomfort and he wants that excised. Benefits, alternatives, and risks were fully explained, which include, but not limited to infection, bleeding, damage to adjacent structures , anesthesia complication, recurrence, CA, and even . He also understands this may not relieve any symptoms. He might need more than one surgical intervention. He understood, signed a consent. The area of concern was marked by me and the patient in the holding room. Procedure In Detail: The patient was brought to the operating room, placed in supine position. Anes thesia was done without complication. The patient was placed in lateral decubitus position in a prop er protection. After that, we prepped and draped in the usual sterile fashion. A time-out was guthrie d. An incision was made after injecting local anesthetic over the area of concern. The incision was carried down to deep subcutaneous tissue. This mass was deep, located just above the fascia of the muscle, so we went through all the layers of the subcutaneous tissue, deep to that layers, we saw the re was a well delineated mass that was carefully removed with the help of blunt dissection. The mass was completely excised. The area was irrigated. Hemostasis was obtained. Local anesthesia was rachele lied. Then, we proceeded, due to the size of this cavity, to leave a NEGRITO drain exiting through anothe r site, secured in place with 3-0 nylon. Then, after that, we proceeded to close this in layers with a 2-0 chromic in deep layers, mid layers, and then 4-0 PDS in subcuticular fashion and then Steri-St rips. Sponge count and instrument counts correct. The patient tolerated the procedure well. The pa tient was sent to recovery in stable condition. ANTHONY/KUSHAL Voice ID: [id number] Report ID: [id number]
[2021-05-30] MEDS ORDERED: CODEINE 30MG/APAP 300MG TAB ONE (11:05)
[2021-05-30 11:37] VITALS: BP 175/74; TEMP 96; O2SAT 100
== END 2021-05-30 11:30 | disposition home or self-care (01) ==
LOC: OR 08:29
PROVIDERS: ATTEND Surgery
PROC: 0JB70ZZ Excision of Back Subcutaneous Tissue and Fascia, Open Approach (ICD-10-PCS; principal; 2021-05-30 09:45)
DX: D17.1 Benign lipomatous neoplasm of skin and subcutaneous tissue of trunk (principal); Z20.822 Contact with and (suspected) exposure to COVID-19
CPT/HCPCS: 88304; 11406; U0003 ×2; J2704; J2250; J3010; J1100; J7120; J0690; 88305

== ENCOUNTER 2022-06-07 14:22 | Emergency (ER) | payer OTHER ==
--- OUTSIDE RECORDS SUMMARY | 2022-06-07 14:32 | XMS REPORT | Continuity of Care Document ---
:1945 Author Organization [facility] t Address [address] [facility] [address] [place] [address] Care Team Providers Name Role Phone CONRAD ZIEGLER Primary Care Physician Unavailable Madison Palma Attending Clinician Unavailable Conrad Ziegler Attending Clinician Unavailable Vance Gallegos Attending Clinician Unavailable PATRICK ALBRIGHT Attending Clinician Unavailable MICHEAL RIVAS Attending Clinician Unavailable Micheal Madrid Attending Clinician TAMIA Attending Clinician Unavailable CHADWICK WANG Attending Clinician Unavailable Vance Gallegos Admitting Clinician Unavailable PATRICK ALBRIGHT Admitting Clinician Unavailable MICHEAL RIVAS Admitting Clinician Unavailable TAMIA Admitting Clinician Unavailable DESIREE SHERIFF Admitting Clinician Unavailable Payers Payer Name Policy Type Policy Number Effective Date Expiration Date Brandon graham [employer] [id number] MEDICARE ADVANTAGE AETNA OPEN ACCESS [id number] O NAP CIGNA MEDICARE PPO [id number] 2019 00:00:00 KIRAN MIKE PLS [id number] 2021 HMO 00:00:00 AETNA SENIOR [id number] 2020 SUPPLEMENT 00:00:00 [employer] Senior C1 [id number] Common Supplement [facility] [employer] C1 [id number] Common Medicare Replace [facility] [employer] C1 [id number] Common Medicare Replace [facility] A[employer] Senior C1 [id number] Common Supplement [facility] Aetna Senior C1 [id number] Common Supplement [facility] [employer] C1 [id number] Common Medicare Replace [facility] A[employer] Senior C1 [id number] Common Supplement [facility] [employer] C1 [id number] Common Medicare Replace [facility] [employer] C1 [id number] Common Medicare Replace [facility] A[employer] Senior C1 [id number] Common Supplement [facility] A[employer] Senior C1 [id number] Common Supplement [facility] [employer] C1 [id number] Common Medicare Replace [facility] [employer] C1 [id number] Common Medicare Replace [facility] [employer] C1 [id number] Common Medicare Replace [facility] [employer] C1 [id number] Common Medicare Replace [facility] Problems Condition Condition Condition Status Onset Resolution Last Treating Co mments Source Name Details Category Date Date Treatment Clinician Date [facility] Disease Active Univers hump hump 5-12 ity of 00:00: [place] 00 Medical Branch Hematuria Hematuria Disease Active 2020-[address] [facility] HTN HTN Disease Active 2020-[address] (hypertens (hypertens 0-01 Mary Kay kes ion) ion) 00:00: Medical 00 Center HLD HLD Disease Active 2020-[address] [facility] (hyperlipi (hyperlipi 0-01 Mary Kay kes demia) demia) 00:00: Medical 00 Center Nephrogeno Nephrogeno Disease Active U nivers us us 7-12 ity of proteinuri proteinuri [place] [facility] [place] 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 [place] of of 00 Medical uncertain uncertain Bran ch significan significan ce ce Coronary Coronary Disease Active Unive rs atheroscle atheroscle 3-22 it y of rosis of rosis of 00:00: [place] zuni zuni 00 Medical coronary 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 00:00: [place] failure failure 00 Medical Branch Anemia of Anemia of Disease Active Uni vers chronic chronic 3-22 ity of disease disease 00:00: [place] 00 Medical Branch Lower Lower Disease Active Univers urinary urinary 3-22 ity of tract tract 00:00: [place] symptoms symptoms 00 Medica l due to due to Branch benign benign prostatic prostatic hyperplasi hyperplasi a a 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 3-22 ity of both lower both lower [place] extremitie extremitie 00 Me dical s s Branch 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-22 ity of cysts cysts 00:00: [place] 00 Medical Branch Localized Localized Disease Active Uni vers edema due edema due 3-22 ity of to fluid to fluid 00:00: [place] overload overload 00 Medica l Branch Iron Iron Disease Active Univers deficiency deficiency 3-22 it y of 00:00: [place] 00 Medical Branch Insomnia Insomnia Disease Active Unive rs due to due to 3-22 ity of medical medical 00:00: [place] condition condition 00 Medi brandy Branch Hypertensi Hypertensi Disease Active U nivers ve heart ve heart 3-22 ity of and and 00:00: [place] chronic chronic 00 Medical kidney kidney Branch disease disease with heart with heart failure failure and stage and stage 1 through 1 through stage 4 stage 4 chronic chronic kidney kidney disease, disease, or or unspecifie unspecifie d chronic d chronic kidney kidney disease disease 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 disease) Medical stage 3, Center GFR 30-59 ml/min [id number] Cervicalgi Problem Com mon a [facility] Benign Benign Problem Common prostatic prostatic Spir it hypertroph hyperplasi - CHI y without a without St outflow [facility] obstructio urinary Medic al n tract Center symptoms [id number] Chronic Problem Commo n kidney Spirit disease, - [facility]I unspecifie [facility] Varicose Varicose Problem Commo n veins veins [facility] [id number] Congestive Problem Com mon heart Spirit failure, - [facility] unspecifie [facility] chronicity Medica , Center unspecifie d heart failure type 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 [id number] Mixed Problem Common hyperlipid Spirit emia [facility] [id number] Acute gout Problem Co mmon due to Spirit renal - CHI impairment [facility] right foot Medica l Parmelee Elevated Elevated Problem Commo n PSA PSA [facility] Kidney Kidney Problem Common disease disease [facility] [id number] Primary Problem Common insomnia [facility] [id number] Osteoarthr Problem Co mmon itis of [facility] multiple [facility], [facility] itis type [id number] Dilated Problem Commo n cardiomyop [facility] athy [facility] [id number] Preglaucom Problem Co mmon a, Spirit unspecie - [facility] d, [facility] [id number] Vitamin D Problem Comm on deficiency [facility] [id number] BPH loc w Problem Com mon urin Spirit obs/LUTS [facility] [id number] Other Problem Common obstructiv [facility] e and [facility] [id number] Kidney Problem Common stones [facility] [id number] Gross Problem Common hematuria [facility] [id number] S/P TURP Problem Comm on [facility] Chronic Stage 3b Problem Common kidney chronic [facility] disease kidney [facility] stage 3B disease ([facility] [id number] Memory Problem Common deficit [facility] Pain in Pain in Problem Common limb limb [facility] Edema Edema Problem Common [facility] Allergies, Adverse Reactions, Alerts Allergy Allergy Status Severity Reaction(s) Onset Inactive Treating Comm ents Source Name Type Date Date Clinician NO KNOWN Drug Active Univers ALLERGIE Class ity of S [facility] NO KNOWN Allergy Active [facility] ALLERGIE S Social History Social Habit Start Date Stop Date Quantity Comments Source History SDOH [facility] Alcohol Std Medical Cente r Drinks History SDOH [facility] Alcohol Binge Medical Ezio ter History SDOH [facility] Alcohol Comment Medical C enter History of Common Spirit - Tobacco Use [facility] Exposure to 2021-12-02 2021-12-12 Not sure University of SARS-CoV-2 00:00:00 16:12:00 [facility] (event) Branch Tobacco use and 2020-12-24 2020-12-[address] [facility]es exposure 00:00:00 00:00:00 [facility] Alcohol intake 2020-12-24 2020-12-[address] [facility] 00:[facility] 00:00:00 non-drinker Medical Cente r (finding) History SDOH 2020-12-24 2020-12-[address] [facility] Alcohol Frequency 00:00:00 00:00:00 [facility] Sex Assigned At [address] [facility] kes 00:00:00 00:00:00 [facility] Smoking Status Start Date Stop Date Source Tobacco smoking [facility] [place] xa consumption unknown Medical Bran ch Former Smoker 2022-02-28 00:00:00 2022-02-28 [facility] Never Smoker [facility] Medications Ordered Filled Start Stop Current Ordering Indication Dosage Frequency Signature Comments Components Source Medication Medication Date Date Medication? Clinician (SIG) Name Name Lyrica 75 Lyrica 75 2021-03 No 1{capsu BID Lyrica 75 MG MG 1-29 le} MG 00:00: 00 Lyrica 75 Lyrica 75 2021-03 No 1{capsu BID Lyrica 75 MG MG 1-29 le} MG 00:00: 00 Lyrica 75 Lyrica 75 2021-03 No 1{capsu BID Lyrica 75 MG MG 1-29 le} MG 00:00: 00 Lyrica 75 Lyrica 75 2021-03 No 1{capsu BID Lyrica 75 MG MG 1-29 le} MG 00:00: 00 Lyrica 75 Lyrica 75 2021-03 No 1{capsu BID Lyrica 75 MG MG 1-29 le} MG 00:00: 00 Meloxicam Meloxicam 2021-03- No Meloxicam 15 MG 15 MG - 12- 15 MG 00:00: 00:00 00 :00 Meloxicam Meloxicam 2021-03- No Meloxicam 15 MG 15 MG - 12-29 15 MG 00:00: 00:00 00 :00 Meloxicam Meloxicam 2022-1 2022- No Meloxicam 15 MG 15 MG 04-23 15 MG 00:00: 00:00 00 :00 Meloxicam Meloxicam 2021-03- No Meloxicam 15 MG 15 MG 04-23 15 MG 00:00: 00:00 00 :00 lidocaine 2021-0 2021- No 1{patch 1 Patch, Univers (LIDODERM) 12-13 } Topical, ity of 5 % (700 00:00: 11:59 [place] mg/patch) 00 :00 over 12 Medical patch 1 Hours, Branch Patch ONCE, 1 dose, On Sun12/12/21 at 1900, Routine terazosin 5 Yes terazosin U nivers mg capsule 12-12 5 mg ity of 18:07: capsule [address] traMADoL [address] mg tablet 12-12 50 mg ity of 18:07: tablet [address] traZODone Yes trazodone Uni vers 50 mg - 50 mg ity of tablet 18:07: tablet [address] acetaminoph Yes 650mg Take 650 U nivers en 650 mg -19 mg by ity of CR tablet 18:07: mouth. [address] amLODIPine Yes 10mg Take 10 mg U nivers 10 mg 12-12 by mouth. ity of tablet 18:07: [address] aspirin 81 Yes 81mg Take 81 mg U nivers mg EC 12-12 by mouth. ity of tablet 18:07: [address] Branch ferrous 2021- Yes 65mg Take 65 mg Univ ers sulfate 325 12-12 by mouth. ity of mg (65 mg 18:07: [place] iron) Medical [facility] Branch finasteride Yes finasterid Univers 5 mg tablet 12-12 e 5 mg ity of 18:07: tablet [address] simvastatin Yes simvastati Univers 20 mg - n 20 mg ity of tablet 18:07: tablet [address] lidocaine 5 Yes [id number] Apply Univers % (700 12-12 405597 patch to ity of mg/patch) 00:00: [place] patch 00 and leave Medical on for up Branch to 12 hours before removing. Leave patch off for 12 hours before applying new patch. May use 1 patch per 24 hours. cloNIDine 2022- No .1mg Take 0.1 Uni vers 0.1 mg 12-05 09-13 mg by ity of tablet 00:00: 04:59 mouth. [place] 00 :00 Medical Branch spironolact 2022- No 1{tbl} Take 1 U nivers one-hydroch 11-21 tablet by it y of lorothiazid 00:00: 04:59 mouth. Elise[place] as e 25-25 mg 00 :00 Medical per tablet Branch Aspirin 81 Aspirin 81 2021-0 No 1{table QD Aspirin 81 81 MG 81 MG 11-01 t} 81 MG 00:00: 00 Aspirin 81 Aspirin 81 2021-0 No 1{table QD Aspirin 81 81 MG 81 MG 11-01 t} 81 MG 00:00: 00 Aspirin 81 Aspirin 81 2021-0 No 1{table QD Aspirin 81 81 MG 81 MG 11-01 t} 81 MG 00:00: 00 Aspirin 81 Aspirin 81 2021-0 No 1{table QD Aspirin 81 81 MG 81 MG 11-01 t} 81 MG 00:00: 00 Aspirin 81 Aspirin 81 2021-0 No 1{table QD Aspirin 81 81 MG 81 MG 11-01 t} 81 MG 00:00: 00 Magnesium Magnesium 2021-0 2021- No 1{table QD Magnesium Oxide 400 Oxide 400 07-19 t_with_ Oxide 400 MG MG 00:00: 00:00 food} MG 00 :00 Magnesium Magnesium 2021-0 2021- No 1{table QD Magnesium Oxide 400 Oxide 400 07-19 t_with_ Oxide 400 MG MG 00:00: 00:00 food} MG 00 :00 Magnesium Magnesium 2021-0 202- No 1{table QD Magnesium Oxide 400 Oxide 400 07-19 t_with_ Oxide 400 MG MG 00:00: 00:00 food} MG 00 :00 Magnesium Magnesium 2021-0 202- No 1{table QD Magnesium Oxide 400 Oxide 400 07-19 t_with_ Oxide 400 MG MG 00:00: 00:00 food} MG 00 :00 Magnesium Magnesium 2021-0 2021- No 1{table QD Magnesium Oxide 400 Oxide 400 07-19 t_with_ Oxide 400 MG MG 00:00: 00:00 food} MG 00 :00 Magnesium Magnesium 2022-0 2022- No 1{table QD Magnesium Oxide 400 Oxide 400 07-19 t_with_ Oxide 400 MG MG 00:00: 00:00 food} MG 00 :00 Methocarbam Methocarbam 2021-0 2022- No Methocarba ol 500 MG ol 500 MG 07-19- mol 500 MG 00:00: 00:00 00 :00 Methocarbam Methocarbam 2021-0 2021- No Methocarba ol 500 MG ol 500 MG 07-19 mol 500 MG 00:00: 00:00 00 :00 cloNIDine cloNIDine 2-0 No 1{table TID cloNIDine HCl 0.3 MG HCl 0.3 MG 4-20 t} HCl 0.3 MG 00:00: 00 cloNIDine cloNIDine 2-0 No 1{table TID cloNIDine HCl 0.3 MG HCl 0.3 MG 4-20 t} HCl 0.3 MG 00:00: 00 cloNIDine cloNIDine 2-0 No 1{table TID cloNIDine HCl 0.3 MG HCl 0.3 MG 4-20 t} HCl 0.3 MG 00:00: 00 cloNIDine cloNIDine 2022-0 No 1{table TID cloNIDine HCl 0.3 MG HCl 0.3 MG 4-20 t} HCl 0.3 MG 00:00: 00 cloNIDine cloNIDine 2-0 No 1{table TID cloNIDine HCl 0.3 MG HCl 0.3 MG 4-20 t} HCl 0.3 MG 00:00: 00 cloNIDine cloNIDine 2022-0 No 1{table TID cloNIDine HCl 0.3 MG HCl 0.3 MG 4-20 t} HCl 0.3 MG 00:00: 00 cloNIDine cloNIDine 2022-0 No 1{table TID cloNIDine HCl 0.3 MG HCl 0.3 MG 4-20 t} HCl 0.3 MG 00:00: 00 cloNIDine cloNIDine 2022-0 No 1{table TID cloNIDine HCl 0.3 MG HCl 0.3 MG 4-20 t} HCl 0.3 MG 00:00: 00 cloNIDine cloNIDine 2022-0 No 1{table TID cloNIDine HCl 0.3 MG HCl 0.3 MG 4-20 t} HCl 0.3 MG 00:00: 00 tamsulosin 2022-0 Yes tamsulosin U nivers 0.4 mg 24 1-15 0.4 mg ity of hr capsule 00:00: [place] Blisovi FE Blisovi FE 2020-03 No 1{table QD Blisovi FE 04/14-04/14 1-20 0-04 t} 04/14 1-20 MG-MCG MG-MCG 00:00: MG-MCG 00 cloNIDine 2020-03 Yes .3mg Q.[id number] Take 0.[address] HCL 0-03 [id number] mg by [facility] (CATAPRES) 12:12: 3D mouth 3 Medi brandy 0.3 MG 08 (three) Center tablet times daily. finasteride 2020-03 Yes 5mg QD Take [address] (PROSCAR) 5 0-03 by mouth Luke s mg tablet 12:12: daily. Medica l 08 [place] tamsulosin 2020-03 Yes .4mg QD Take 0.[address] (FLOMAX) 0-03 mg by [facility] 0.4 mg Cap 12:12: mouth Medica l 24 hr 08 daily. Center capsule simvastatin 2020-03 Yes 20mg QD Take [address] (ZOCOR) 20 0-03 by mouth Lukes MG tablet 12:12: nightly. Medi brandy 08 Center ferrous 2020-03 Yes 65mg Take [address] sulfate 0-03 by mouth [facility] (iron) 325 12:12: daily with M edical (65 FE) MG [address] tablet Potassium Potassium 2019-0 2020- No Na Ziegler 1 tablet Common Chloride Chloride 9-16 10-16 with food S pirit [facility] Mar[facility] 00:00: 00:00 - [facility] 00 :00 [facility] Ondansetron Ondansetron 2019-0 Yes Na Ziegler 1 tablet Common HCl HCl 8-24 as needed Spirit 00:00: - [facility] Ondansetron Ondansetron 2020-0 No 1{table Ondansetro HCl 4 MG HCl 4 MG 8-24 t_as_ne n HCl 4 MG 00:00: eded} 00 Ondansetron Ondansetron 2019-0 No 1{table Ondansetro HCl 4 MG HCl 4 MG 8-24 t_as_ne n HCl 4 MG 00:00: eded} 00 Ondansetron Ondansetron 2020-0 No 1{table Ondansetro HCl 4 MG HCl 4 MG 8-24 t_as_ne n HCl 4 MG 00:00: eded} 00 Ondansetron Ondansetron 2020-0 No 1{table Ondansetro HCl 4 MG HCl 4 MG 8-24 t_as_ne n HCl 4 MG 00:00: eded} 00 Ondansetron Ondansetron 2020-0 No 1{table HCl 4 MG HCl 4 MG 8-24 t_as_ne 00:00: eded} 00 Ondansetron Ondansetron 2020-0 No 1{table Ondansetro HCl 4 MG HCl 4 MG 8-24 t_as_ne n HCl 4 MG 00:00: eded} 00 Ondansetron Ondansetron 2020-0 No 1{table Ondansetro HCl 4 MG HCl 4 MG 8-24 t_as_ne n HCl 4 MG 00:00: eded} 00 Ondansetron Ondansetron 2020-0 No 1{table Ondansetro HCl 4 MG HCl 4 MG 8-24 t_as_ne n HCl 4 MG 00:00: eded} 00 Ondansetron Ondansetron 2020-0 No 1{table Ondansetro HCl 4 MG HCl 4 MG 8-24 t_as_ne n HCl 4 MG 00:00: eded} 00 Ondansetron Ondansetron 2020-0 No 1{table Ondansetro HCl 4 MG HCl 4 MG 8-24 t_as_ne n HCl 4 MG 00:00: eded} 00 Ondansetron Ondansetron 2020-0 No 1{table Ondansetro HCl 4 MG HCl 4 MG 8-24 t_as_ne n HCl 4 MG 00:00: eded} 00 Tamiflu Tamiflu 2020-0 Yes Na Ziegler 1 capsule Common 10-23 Spirit 00:00: - [facility] Tamiflu 75 Tamiflu 75 2020-0 No 1{capsu QD Tamiflu 75 MG MG 7- le} MG 00:00: 00 Simvastatin Simvastatin 2018-0 Yes Na Ziegler 1 tablet Common 2-20 in the Spirit 00:00: evening - [facility] Simvastatin Simvastatin 2017-0 No 1{table QD Simvastati 20 MG 20 MG 2-20 t_in_th n 20 MG 00:00: e_eveni 00 ng} Simvastatin Simvastatin 2017-0 No 1{table QD Simvastati 20 MG 20 MG 2-20 t_in_th n 20 MG 00:00: e_eveni 00 ng} Simvastatin Simvastatin 2018-0 No 1{table QD Simvastati 20 MG 20 MG 2-20 t_in_th n 20 MG 00:00: e_eveni 00 ng} Simvastatin Simvastatin 2017-0 No 1{table QD Simvastati 20 MG 20 MG 2-20 t_in_th n 20 MG 00:00: e_eveni 00 ng} Simvastatin Simvastatin 2017-0 No 1{table QD 20 MG 20 MG 2-20 t_in_th 00:00: e_eveni 00 ng} Simvastatin Simvastatin 2017-0 No 1{table QD Simvastati 20 MG 20 MG 2-20 t_in_th n 20 MG 00:00: e_eveni 00 ng} Simvastatin Simvastatin 2017-0 No 1{table QD Simvastati 20 MG 20 MG 2-20 t_in_th n 20 MG 00:00: e_eveni 00 ng} Simvastatin Simvastatin 2017-0 No 1{table QD Simvastati 20 MG 20 MG 2-20 t_in_th n 20 MG 00:00: e_eveni 00 ng} Simvastatin Simvastatin 2017-0 No 1{table QD Simvastati 20 MG 20 MG 2-20 t_in_th n 20 MG 00:00: e_eveni 00 ng} Simvastatin Simvastatin 2017-0 No 1{table QD Simvastati 20 MG 20 MG 2-20 t_in_th n 20 MG 00:00: e_eveni 00 ng} Simvastatin Simvastatin 2018-0 No 1{table QD Simvastati 20 MG 20 MG 2-20 t_in_th n 20 MG 00:00: e_eveni 00 ng} Simvastatin Simvastatin 2018-0 No 1{table QD Simvastati 20 MG 20 MG 2-20 t_in_th n 20 MG 00:00: e_eveni 00 ng} Simvastatin Simvastatin 2017-0 No 1{table QD Simvastati 20 MG 20 MG 2-20 t_in_th n 20 MG 00:00: e_eveni 00 ng} Simvastatin Simvastatin No 1{table QD Simvastati 20 MG 20 MG 2-20 t_in_th n 20 MG 00:00: e_eveni 00 ng} Simvastatin Simvastatin No 1{table QD Simvastati 20 MG 20 MG 2-20 t_in_th n 20 MG 00:00: e_eveni 00 ng} Simvastatin Simvastatin No 1{table QD Simvastati 20 MG 20 MG 2-20 t_in_th n 20 MG 00:00: e_eveni 00 ng} Ferrous Ferrous Yes Na Ziegler 1 tablet Co mmon Sulfate Sulfate [facility] Tamsulosin Tamsulosin Yes Na Ziegelr Take 1 Common HCl HCl capsule by [facility] mouth - [facility] daily. [facility] Osiris Osiris Yes Na Ziegler 1 tablet Common Aspirin EC Aspirin EC Spi rit Low Dose Low Dose [facility] Tamsulosin Tamsulosin Yes Na Ziegler 1 capsule Common HCl HCl [facility] Tramadol Tramadol Yes Na Ziegler 1 tablet Common HCl HCl [facility] Entresto Entresto Yes Na Ziegler 1 tablet Common [facility] Bactrim DS Bactrim DS Yes Na Ziegler 1 tablet Common [facility] Clonidine Clonidine Yes Na Ziegler Take 1 Common HCl HCl tablet by [facility] mouth - [facility] three [facility] times [facility] daily. Medical Hold if Center blood pressure is less than 140/90. Amlodipine Amlodipine Yes Na Ziegler 1 tablet Common Besylate Besylate [facility] Metoprolol Metoprolol Yes Na Ziegler TAKE 1 Common Tartrate Tartrate TABLET Spiri t TWICE - CHI DAILY WITH [facility] Trazodone Trazodone Yes Na Ziegler 1 tablet Common HCl HCl at bedtime [facility] as needed [facility] Terazosin Terazosin Yes Na Ziegler TAKE 1 Common HCl HCl CAPSULE [facility] EVERY DAY [facility] Bactrim DS Bactrim DS No 1{table BID Bactrim DS 800-160 MG 800-160 MG t} 800-160 MG cloNIDine cloNIDine No cloNIDine HCl 0.3 MG HCl 0.3 MG HCl 0.3 MG Tamsulosin Tamsulosin No Tamsulosin HCl 0.4 MG HCl 0.4 MG HCl 0.4 MG Entresto Entresto No 1{table BID Entresto 49-51 MG 49-51 MG t} 49-51 MG Metoprolol Metoprolol No BID Metoprolol Tartrate Tartrate Tartrate 100 MG 100 MG 100 MG Terazosin Terazosin No Terazosin HCl 5 MG HCl 5 MG HCl 5 MG amLODIPine amLODIPine No QD amLODIPine Besylate 5 Besylate 5 Besylate 5 MG MG MG Tamsulosin Tamsulosin No 1{capsu QD Tamsulosin HCl 0.4 MG HCl 0.4 MG le} HCl 0.4 MG Vitamin D3 Vitamin D3 No 1{capsu QD Vitamin D3 50 MCG 50 MCG le} 50 MCG (1999) (1999) (1999) traZODone traZODone No 1{table QD traZODone HCl 50 MG HCl 50 MG t_at_be HCl 50 MG dtime_a s_neede d} cloNIDine cloNIDine No TID cloNIDine HCl 0.3 MG HCl 0.3 MG HCl 0.3 MG traMADol traMADol No 1{table traMADol HCl 50 MG HCl 50 MG t} HCl 50 MG Osiris Osiris No 1{table QD Osiris Aspirin EC Aspirin EC t} Aspirin EC Low Dose 81 Low Dose 81 Low Dose MG MG 81 MG Ferrous Ferrous No 1{table QD Ferrous Sulfate 325 Sulfate 325 t} Sulfate (65 Fe) MG (65 Fe) MG 325 (65 Fe) MG cloNIDine cloNIDine No TID cloNIDine HCl 0.3 MG HCl 0.3 MG HCl 0.3 MG traMADol traMADol No 1{table traMADol HCl 50 MG HCl 50 MG t} HCl 50 MG Ferrous Ferrous No 1{table QD Ferrous Sulfate 325 Sulfate 325 t} Sulfate (65 Fe) MG (65 Fe) MG 325 (65 Fe) MG Terazosin Terazosin No Terazosin HCl 5 MG HCl 5 MG HCl 5 MG Vitamin D3 Vitamin D3 No 1{capsu QD Vitamin D3 50 MCG 50 MCG le} 50 MCG (1999) (1999) (1999) traZODone traZODone No 1{table QD traZODone HCl 50 MG HCl 50 MG t_at_be HCl 50 MG dtime_a s_neede d} Finasteride Finasteride No 1{table QD Finasterid 5 MG 5 MG t} e 5 MG amLODIPine amLODIPine No QD amLODIPine Besylate 10 Besylate 10 Besylate MG MG 10 MG Entresto Entresto No 1{table BID Entresto 49-51 MG 49-51 MG t} 49-51 MG Tamsulosin Tamsulosin No 1{capsu QD Tamsulosin HCl 0.4 MG HCl 0.4 MG le} HCl 0.4 MG Terazosin Terazosin No Terazosin HCl 5 MG HCl 5 MG HCl 5 MG traZODone traZODone No 1{table QD traZODone HCl 50 MG HCl 50 MG t_at_be HCl 50 MG dtime_a s_neede d} amLODIPine amLODIPine No QD amLODIPine Besylate 10 Besylate 10 Besylate MG MG 10 MG Vitamin D3 Vitamin D3 No 1{capsu QD Vitamin D3 50 MCG 50 MCG le} 50 MCG (1999) (1999) (1999) Tamsulosin Tamsulosin No 1{capsu QD Tamsulosin HCl 0.4 MG HCl 0.4 MG le} HCl 0.4 MG traMADol traMADol No 1{table traMADol HCl 50 MG HCl 50 MG t} HCl 50 MG cloNIDine cloNIDine No TID cloNIDine HCl 0.3 MG HCl 0.3 MG HCl 0.3 MG Ferrous Ferrous No 1{table QD Ferrous Sulfate 325 Sulfate 325 t} Sulfate (65 Fe) MG (65 Fe) MG 325 (65 Fe) MG Entresto Entresto No 1{table BID Entresto 49-51 MG 49-51 MG t} 49-51 MG Finasteride Finasteride No 1{table QD Finasterid 5 MG 5 MG t} e 5 MG Vitamin D3 Vitamin D3 No 1{capsu QD Vitamin D3 50 MCG 50 MCG le} 50 MCG (1999) (1999) (1999) traZODone traZODone No 1{table QD traZODone HCl 50 MG HCl 50 MG t_at_be HCl 50 MG dtime_a s_neede d} traMADol traMADol No 1{table traMADol HCl 50 MG HCl 50 MG t} HCl 50 MG cloNIDine cloNIDine No TID cloNIDine HCl 0.3 MG HCl 0.3 MG HCl 0.3 MG Terazosin Terazosin No Terazosin HCl 5 MG HCl 5 MG HCl 5 MG amLODIPine amLODIPine No QD amLODIPine Besylate 10 Besylate 10 Besylate MG MG 10 MG Ferrous Ferrous No 1{table QD Ferrous Sulfate 325 Sulfate 325 t} Sulfate (65 Fe) MG (65 Fe) MG 325 (65 Fe) MG Entresto Entresto No 1{table BID Entresto 49-51 MG 49-51 MG t} 49-51 MG cloNIDine cloNIDine No TID HCl 0.3 MG HCl 0.3 MG traMADol traMADol No 1{table HCl 50 MG HCl 50 MG t} Terazosin Terazosin No HCl 5 MG HCl 5 MG traZODone traZODone No 1{table QD HCl 50 MG HCl 50 MG t_at_be dtime_a s_neede d} amLODIPine amLODIPine No QD Besylate 10 Besylate 10 MG MG Ferrous Ferrous No 1{table QD Sulfate 325 Sulfate 325 t} (65 Fe) MG (65 Fe) MG Vitamin D3 Vitamin D3 No 1{capsu QD 50 MCG 50 MCG le} (1999) (1999) Entresto Entresto No 1{table BID 49-51 MG 49-51 MG t} amLODIPine amLODIPine No QD amLODIPine Besylate 10 Besylate 10 Besylate MG MG 10 MG traZODone traZODone No 1{table QD traZODone HCl 50 MG HCl 50 MG t_at_be HCl 50 MG dtime_a s_neede d} traMADol traMADol No 1{table traMADol HCl 50 MG HCl 50 MG t} HCl 50 MG Vitamin D3 Vitamin D3 No 1{capsu QD Vitamin D3 50 MCG 50 MCG le} 50 MCG (1999) (1999) (1999) cloNIDine cloNIDine No TID cloNIDine HCl 0.3 MG HCl 0.3 MG HCl 0.3 MG Terazosin Terazosin No Terazosin HCl 5 MG HCl 5 MG HCl 5 MG Entresto Entresto No 1{table BID Entresto 49-51 MG 49-51 MG t} 49-51 MG Ferrous Ferrous No 1{table QD Ferrous Sulfate 325 Sulfate 325 t} Sulfate (65 Fe) MG (65 Fe) MG 325 (65 Fe) MG Vitamin D3 Vitamin D3 No 1{capsu QD Vitamin D3 50 MCG 50 MCG le} 50 MCG (1999) (1999) (1999) Entresto Entresto No 1{table BID Entresto 49-51 MG 49-51 MG t} 49-51 MG amLODIPine amLODIPine No QD amLODIPine Besylate 10 Besylate 10 Besylate MG MG 10 MG traMADol traMADol No 1{table traMADol HCl 50 MG HCl 50 MG t} HCl 50 MG cloNIDine cloNIDine No TID cloNIDine HCl 0.3 MG HCl 0.3 MG HCl 0.3 MG Terazosin Terazosin No Terazosin HCl 5 MG HCl 5 MG HCl 5 MG Ferrous Ferrous No 1{table QD Ferrous Sulfate 325 Sulfate 325 t} Sulfate (65 Fe) MG (65 Fe) MG 325 (65 Fe) MG traZODone traZODone No 1{table QD traZODone HCl 50 MG HCl 50 MG t_at_be HCl 50 MG dtime_a s_neede d} Vitamin D3 Vitamin D3 No 1{capsu QD Vitamin D3 50 MCG 50 MCG le} 50 MCG (1999) (1999) (1999) cloNIDine cloNIDine No TID cloNIDine HCl 0.3 MG HCl 0.3 MG HCl 0.3 MG Entresto Entresto No 1{table BID Entresto 49-51 MG 49-51 MG t} 49-51 MG traZODone traZODone No 1{table QD traZODone HCl 50 MG HCl 50 MG t_at_be HCl 50 MG dtime_a s_neede d} Ferrous Ferrous No 1{table QD Ferrous Sulfate 325 Sulfate 325 t} Sulfate (65 Fe) MG (65 Fe) MG 325 (65 Fe) MG Terazosin Terazosin No Terazosin HCl 5 MG HCl 5 MG HCl 5 MG amLODIPine amLODIPine No QD amLODIPine Besylate 10 Besylate 10 Besylate MG MG 10 MG traMADol traMADol No 1{table traMADol HCl 50 MG HCl 50 MG t} HCl 50 MG Vitamin D3 Vitamin D3 No 1{capsu QD Vitamin D3 50 MCG 50 MCG le} 50 MCG (1999) (1999) (1999) Entresto Entresto No 1{table BID Entresto 49-51 MG 49-51 MG t} 49-51 MG traZODone traZODone No 1{table QD traZODone HCl 50 MG HCl 50 MG t_at_be HCl 50 MG dtime_a s_neede d} cloNIDine cloNIDine No cloNIDine HCl 0.2 MG HCl 0.2 MG HCl 0.2 MG Ferrous Ferrous No 1{table QD Ferrous Sulfate 325 Sulfate 325 t} Sulfate (65 Fe) MG (65 Fe) MG 325 (65 Fe) MG Terazosin Terazosin No Terazosin HCl 5 MG HCl 5 MG HCl 5 MG amLODIPine amLODIPine No QD amLODIPine Besylate 10 Besylate 10 Besylate MG MG 10 MG traMADol traMADol No 1{table traMADol HCl 50 MG HCl 50 MG t} HCl 50 MG traMADol traMADol No 1{table traMADol HCl 50 MG HCl 50 MG t} HCl 50 MG Entresto Entresto No 1{table BID Entresto 49-51 MG 49-51 MG t} 49-51 MG cloNIDine cloNIDine No cloNIDine HCl 0.2 MG HCl 0.2 MG HCl 0.2 MG amLODIPine amLODIPine No QD amLODIPine Besylate 10 Besylate 10 Besylate MG MG 10 MG Ferrous Ferrous No 1{table QD Ferrous Sulfate 325 Sulfate 325 t} Sulfate (65 Fe) MG (65 Fe) MG 325 (65 Fe) MG traZODone traZODone No 1{table QD traZODone HCl 50 MG HCl 50 MG t_at_be HCl 50 MG dtime_a s_neede d} Terazosin Terazosin No Terazosin HCl 5 MG HCl 5 MG HCl 5 MG Vitamin D3 Vitamin D3 No 1{capsu QD Vitamin D3 50 MCG 50 MCG le} 50 MCG (1999) (1999) (1999) traMADol traMADol No 1{table traMADol HCl 50 MG HCl 50 MG t} HCl 50 MG Entresto Entresto No 1{table BID Entresto 49-51 MG 49-51 MG t} 49-51 MG cloNIDine cloNIDine No cloNIDine HCl 0.2 MG HCl 0.2 MG HCl 0.2 MG amLODIPine amLODIPine No QD amLODIPine Besylate 10 Besylate 10 Besylate MG MG 10 MG Ferrous Ferrous No 1{table QD Ferrous Sulfate 325 Sulfate 325 t} Sulfate (65 Fe) MG (65 Fe) MG 325 (65 Fe) MG traZODone traZODone No 1{table QD traZODone HCl 50 MG HCl 50 MG t_at_be HCl 50 MG dtime_a s_neede d} Terazosin Terazosin No Terazosin HCl 5 MG HCl 5 MG HCl 5 MG Vitamin D3 Vitamin D3 No 1{capsu QD Vitamin D3 50 MCG 50 MCG le} 50 MCG (1999) (1999) (1999) Terazosin Terazosin No Terazosin HCl 5 MG HCl 5 MG HCl 5 MG Vitamin C Vitamin C No Vitamin C amLODIPine amLODIPine No QD amLODIPine Besylate 10 Besylate 10 Besylate MG MG 10 MG traZODone traZODone No 1{table QD traZODone HCl 50 MG HCl 50 MG t_at_be HCl 50 MG dtime_a s_neede d} cloNIDine cloNIDine No cloNIDine HCl 0.2 MG HCl 0.2 MG HCl 0.2 MG Ferrous Ferrous No 1{table QD Ferrous Sulfate 325 Sulfate 325 t} Sulfate (65 Fe) MG (65 Fe) MG 325 (65 Fe) MG Vitamin D3 Vitamin D3 No 1{capsu QD Vitamin D3 50 MCG 50 MCG le} 50 MCG (1999) (1999) (1999) traMADol traMADol No 1{table traMADol HCl 50 MG HCl 50 MG t} HCl 50 MG Multivitami Multivitami No Multivitam n n in Terazosin Terazosin No Terazosin HCl 5 MG HCl 5 MG HCl 5 MG Vitamin C Vitamin C No Vitamin C amLODIPine amLODIPine No QD amLODIPine Besylate 10 Besylate 10 Besylate MG MG 10 MG traZODone traZODone No 1{table QD traZODone HCl 50 MG HCl 50 MG t_at_be HCl 50 MG dtime_a s_neede d} cloNIDine cloNIDine No cloNIDine HCl 0.2 MG HCl 0.2 MG HCl 0.2 MG Ferrous Ferrous No 1{table QD Ferrous Sulfate 325 Sulfate 325 t} Sulfate (65 Fe) MG (65 Fe) MG 325 (65 Fe) MG Vitamin D3 Vitamin D3 No 1{capsu QD Vitamin D3 50 MCG 50 MCG le} 50 MCG (1999) (1999) (1999) traMADol traMADol No 1{table traMADol HCl 50 MG HCl 50 MG t} HCl 50 MG Multivitami Multivitami No Multivitam n n in traZODone traZODone No 1{table QD traZODone HCl 50 MG HCl 50 MG t_at_be HCl 50 MG dtime_a s_neede d} Ferrous Ferrous No 1{table QD Ferrous Sulfate 325 Sulfate 325 t} Sulfate (65 Fe) MG (65 Fe) MG 325 (65 Fe) MG Vitamin D3 Vitamin D3 No 1{capsu QD Vitamin D3 50 MCG 50 MCG le} 50 MCG (1999) (1999) (1999) Vitamin C Vitamin C No Vitamin C Terazosin Terazosin No Terazosin HCl 5 MG HCl 5 MG HCl 5 MG traMADol traMADol No 1{table traMADol HCl 50 MG HCl 50 MG t} HCl 50 MG Multivitami Multivitami No Multivitam n n in amLODIPine amLODIPine No QD amLODIPine Besylate 10 Besylate 10 Besylate MG MG 10 MG cloNIDine cloNIDine No cloNIDine HCl 0.2 MG HCl 0.2 MG HCl 0.2 MG Ferrous Ferrous No 1{table QD Ferrous Sulfate 325 Sulfate 325 t} Sulfate (65 Fe) MG (65 Fe) MG 325 (65 Fe) MG traZODone traZODone No 1{table QD traZODone HCl 50 MG HCl 50 MG t_at_be HCl 50 MG dtime_a s_neede d} amLODIPine amLODIPine No QD amLODIPine Besylate 10 Besylate 10 Besylate MG MG 10 MG Vitamin C Vitamin C No Vitamin C Multivitami Multivitami No Multivitam n n in Vitamin D3 Vitamin D3 No 1{capsu QD Vitamin D3 50 MCG 50 MCG le} 50 MCG (1999) (1999) (1999) Terazosin Terazosin No Terazosin HCl 5 MG HCl 5 MG HCl 5 MG traMADol traMADol No 1{table traMADol HCl 50 MG HCl 50 MG t} HCl 50 MG Tamsulosin Tamsulosin No 1{capsu QD Tamsulosin HCl 0.4 MG HCl 0.4 MG le} HCl 0.4 MG traMADol traMADol No 1{table traMADol HCl 50 MG HCl 50 MG t} HCl 50 MG Multivitami Multivitami No Multivitam n n in Vitamin C Vitamin C No Vitamin C Ferrous Ferrous No 1{table QD Ferrous Sulfate 325 Sulfate 325 t} Sulfate (65 Fe) MG (65 Fe) MG 325 (65 Fe) MG Terazosin Terazosin No Terazosin HCl 5 MG HCl 5 MG HCl 5 MG traZODone traZODone No 1{table QD traZODone HCl 50 MG HCl 50 MG t_at_be HCl 50 MG dtime_a s_neede d} Vitamin D3 Vitamin D3 No 1{capsu QD Vitamin D3 50 MCG 50 MCG le} 50 MCG (1999) (1999) (1999) amLODIPine amLODIPine No QD amLODIPine Besylate 10 Besylate 10 Besylate MG MG 10 MG cloNIDine cloNIDine No TID cloNIDine HCl 0.3 MG HCl 0.3 MG HCl 0.3 MG Tamsulosin Tamsulosin No 1{capsu QD Tamsulosin HCl 0.4 MG HCl 0.4 MG le} HCl 0.4 MG Terazosin Terazosin No Terazosin HCl 5 MG HCl 5 MG HCl 5 MG traMADol traMADol No 1{table traMADol HCl 50 MG HCl 50 MG t} HCl 50 MG Multivitami Multivitami No Multivitam n n in Vitamin C Vitamin C No Vitamin C Vitamin D3 Vitamin D3 No 1{capsu QD Vitamin D3 50 MCG 50 MCG le} 50 MCG (1999) (1999) (1999) Ferrous Ferrous No 1{table QD Ferrous Sulfate 325 Sulfate 325 t} Sulfate (65 Fe) MG (65 Fe) MG 325 (65 Fe) MG traZODone traZODone No traZODone HCl 50 MG HCl 50 MG HCl 50 MG Simvastatin Simvastatin No Simvastati 20 MG 20 MG n 20 MG amLODIPine amLODIPine No QD amLODIPine Besylate 10 Besylate 10 Besylate MG MG 10 MG cloNIDine cloNIDine No TID cloNIDine HCl 0.3 MG HCl 0.3 MG HCl 0.3 MG Ferrous Ferrous No 1{table QD Ferrous Sulfate 325 Sulfate 325 t} Sulfate (65 Fe) MG (65 Fe) MG 325 (65 Fe) MG Vitamin C Vitamin C No Vitamin C traMADol traMADol No 1{table traMADol HCl 50 MG HCl 50 MG t} HCl 50 MG Multivitami Multivitami No Multivitam n n in Simvastatin Simvastatin No Simvastati 20 MG 20 MG n 20 MG Vitamin D3 Vitamin D3 No 1{capsu QD Vitamin D3 50 MCG 50 MCG le} 50 MCG (1999) (1999) (1999) cloNIDine cloNIDine No TID cloNIDine HCl 0.3 MG HCl 0.3 MG HCl 0.3 MG Terazosin Terazosin No Terazosin HCl 5 MG HCl 5 MG HCl 5 MG traZODone traZODone No traZODone HCl 50 MG HCl 50 MG HCl 50 MG amLODIPine amLODIPine No QD amLODIPine Besylate 10 Besylate 10 Besylate MG MG 10 MG Tamsulosin Tamsulosin No 1{capsu QD Tamsulosin HCl 0.4 MG HCl 0.4 MG le} HCl 0.4 MG Ferrous Ferrous No 1{table QD Ferrous Sulfate 325 Sulfate 325 t} Sulfate (65 Fe) MG (65 Fe) MG 325 (65 Fe) MG Vitamin C Vitamin C No Vitamin C traMADol traMADol No 1{table traMADol HCl 50 MG HCl 50 MG t} HCl 50 MG Multivitami Multivitami No Multivitam n n in Simvastatin Simvastatin No Simvastati 20 MG 20 MG n 20 MG Vitamin D3 Vitamin D3 No 1{capsu QD Vitamin D3 50 MCG 50 MCG le} 50 MCG (1999) (1999) (1999) cloNIDine cloNIDine No TID cloNIDine HCl 0.3 MG HCl 0.3 MG HCl 0.3 MG Terazosin Terazosin No Terazosin HCl 5 MG HCl 5 MG HCl 5 MG traZODone traZODone No traZODone HCl 50 MG HCl 50 MG HCl 50 MG amLODIPine amLODIPine No QD amLODIPine Besylate 10 Besylate 10 Besylate MG MG 10 MG Tamsulosin Tamsulosin No 1{capsu QD Tamsulosin HCl 0.4 MG HCl 0.4 MG le} HCl 0.4 MG Ferrous Ferrous No 1{table QD Ferrous Sulfate 325 Sulfate 325 t} Sulfate (65 Fe) MG (65 Fe) MG 325 (65 Fe) MG Vitamin C Vitamin C No Vitamin C traMADol traMADol No 1{table traMADol HCl 50 MG HCl 50 MG t} HCl 50 MG Multivitami Multivitami No Multivitam n n in Simvastatin Simvastatin No Simvastati 20 MG 20 MG n 20 MG Vitamin D3 Vitamin D3 No 1{capsu QD Vitamin D3 50 MCG 50 MCG le} 50 MCG (1999) (1999) (1999) cloNIDine cloNIDine No TID cloNIDine HCl 0.3 MG HCl 0.3 MG HCl 0.3 MG Terazosin Terazosin No Terazosin HCl 5 MG HCl 5 MG HCl 5 MG traZODone traZODone No traZODone HCl 50 MG HCl 50 MG HCl 50 MG amLODIPine amLODIPine No QD amLODIPine Besylate 10 Besylate 10 Besylate MG MG 10 MG Tamsulosin Tamsulosin No 1{capsu QD Tamsulosin HCl 0.4 MG HCl 0.4 MG le} HCl 0.4 MG Ferrous Ferrous No 1{table QD Ferrous Sulfate 325 Sulfate 325 t} Sulfate (65 Fe) MG (65 Fe) MG 325 (65 Fe) MG traMADol traMADol No 1{table traMADol HCl 50 MG HCl 50 MG t} HCl 50 MG Vitamin C Vitamin C No Vitamin C Tamsulosin Tamsulosin No 1{capsu QD Tamsulosin HCl 0.4 MG HCl 0.4 MG le} HCl 0.4 MG Multivitami Multivitami No Multivitam n n in Simvastatin Simvastatin No Simvastati 20 MG 20 MG n 20 MG Vitamin D3 Vitamin D3 No 1{capsu QD Vitamin D3 50 MCG 50 MCG le} 50 MCG (1999) (1999) (1999) cloNIDine cloNIDine No TID cloNIDine HCl 0.3 MG HCl 0.3 MG HCl 0.3 MG Terazosin Terazosin No Terazosin HCl 5 MG HCl 5 MG HCl 5 MG traZODone traZODone No traZODone HCl 50 MG HCl 50 MG HCl 50 MG amLODIPine amLODIPine No QD amLODIPine Besylate 10 Besylate 10 Besylate MG MG 10 MG Simvastatin Simvastatin No 1{table QD Simvastati 20 MG 20 MG t_in_ n 20 MG e_eveni ng} Tamsulosin Tamsulosin No 1{capsu QD Tamsulosin HCl 0.4 MG HCl 0.4 MG le} HCl 0.4 MG traMADol traMADol No 1{table traMADol HCl 50 MG HCl 50 MG t} HCl 50 MG Vitamin C Vitamin C No Vitamin C Finasteride Finasteride No 1{table QD Finasterid 5 MG 5 MG t} e 5 MG amLODIPine amLODIPine No 1{table QD amLODIPine Besylate 10 Besylate 10 t} Besylate MG MG 10 MG Terazosin Terazosin No Terazosin HCl 5 MG HCl 5 MG HCl 5 MG cloNIDine cloNIDine No TID cloNIDine HCl 0.3 MG HCl 0.3 MG HCl 0.3 MG Vitamin D3 Vitamin D3 No 1{capsu QD Vitamin D3 50 MCG 50 MCG le} 50 MCG (1999) (1999) (1999) traZODone traZODone No traZODone HCl 50 MG HCl 50 MG HCl 50 MG Multivitami Multivitami No Multivitam n n in Ferrous Ferrous No 1{table QD Ferrous Sulfate 325 Sulfate 325 t} Sulfate (65 Fe) MG (65 Fe) MG 325 (65 Fe) MG Vitamin D3 Vitamin D3 No 1{capsu QD Vitamin D3 50 MCG 50 MCG le} 50 MCG (1999) (1999) (1999) Terazosin Terazosin No Terazosin HCl 5 MG HCl 5 MG HCl 5 MG traMADol traMADol No 1{table traMADol HCl 50 MG HCl 50 MG t} HCl 50 MG Vitamin C Vitamin C No Vitamin C amLODIPine amLODIPine No 1{table QD amLODIPine Besylate 10 Besylate 10 t} Besylate MG MG 10 MG Simvastatin Simvastatin No 1{table QD Simvastati 20 MG 20 MG t_in_th n 20 MG e_eveni ng} cloNIDine cloNIDine No TID cloNIDine HCl 0.3 MG HCl 0.3 MG HCl 0.3 MG Tamsulosin Tamsulosin No 1{capsu QD Tamsulosin HCl 0.4 MG HCl 0.4 MG le} HCl 0.4 MG Finasteride Finasteride No 1{table QD Finasterid 5 MG 5 MG t} e 5 MG Multivitami Multivitami No Multivitam n n in Ferrous Ferrous No 1{table QD Ferrous Sulfate 325 Sulfate 325 t} Sulfate (65 Fe) MG (65 Fe) MG 325 (65 Fe) MG traZODone traZODone No traZODone HCl 50 MG HCl 50 MG HCl 50 MG Multivitami Multivitami No Multivitam n n in traMADol traMADol No 1{table traMADol HCl 50 MG HCl 50 MG t} HCl 50 MG amLODIPine amLODIPine No 1{table QD amLODIPine Besylate 10 Besylate 10 t} Besylate MG MG 10 MG Ferrous Ferrous No 1{table QD Ferrous Sulfate 325 Sulfate 325 t} Sulfate (65 Fe) MG (65 Fe) MG 325 (65 Fe) MG Finasteride Finasteride No 1{table QD Finasterid 5 MG 5 MG t} e 5 MG Terazosin Terazosin No Terazosin HCl 5 MG HCl 5 MG HCl 5 MG Simvastatin Simvastatin No 1{table QD Simvastati 20 MG 20 MG t_in_th n 20 MG e_eveni ng} traZODone traZODone No traZODone HCl 50 MG HCl 50 MG HCl 50 MG Vitamin C Vitamin C No Vitamin C cloNIDine cloNIDine No TID cloNIDine HCl 0.3 MG HCl 0.3 MG HCl 0.3 MG Vitamin D3 Vitamin D3 No 1{capsu QD Vitamin D3 50 MCG 50 MCG le} 50 MCG (1999) (1999) (1999) Tamsulosin Tamsulosin No 1{capsu QD Tamsulosin HCl 0.4 MG HCl 0.4 MG le} HCl 0.4 MG Multivitami Multivitami No Multivitam n n in traMADol traMADol No 1{table traMADol HCl 50 MG HCl 50 MG t} HCl 50 MG amLODIPine amLODIPine No 1{table QD amLODIPine Besylate 10 Besylate 10 t} Besylate MG MG 10 MG Ferrous Ferrous No 1{table QD Ferrous Sulfate 325 Sulfate 325 t} Sulfate (65 Fe) MG (65 Fe) MG 325 (65 Fe) MG Finasteride Finasteride No 1{table QD Finasterid 5 MG 5 MG t} e 5 MG Terazosin Terazosin No Terazosin HCl 5 MG HCl 5 MG HCl 5 MG Simvastatin Simvastatin No 1{table QD Simvastati 20 MG 20 MG t_in_th n 20 MG e_eveni ng} traZODone traZODone No traZODone HCl 50 MG HCl 50 MG HCl 50 MG Vitamin C Vitamin C No Vitamin C cloNIDine cloNIDine No TID cloNIDine HCl 0.3 MG HCl 0.3 MG HCl 0.3 MG Vitamin D3 Vitamin D3 No 1{capsu QD Vitamin D3 50 MCG 50 MCG le} 50 MCG (1999) (1999) (1999) Tamsulosin Tamsulosin No 1{capsu QD Tamsulosin HCl 0.4 MG HCl 0.4 MG le} HCl 0.4 MG Finasteride Finasteride No 1{table QD Finasterid 5 MG 5 MG t} e 5 MG Simvastatin Simvastatin No 1{table QD Simvastati 20 MG 20 MG t_in_ n 20 MG e_eveni ng} Vitamin D3 Vitamin D3 No 1{capsu QD Vitamin D3 50 MCG 50 MCG le} 50 MCG (1999) (1999) (1999) Terazosin Terazosin No Terazosin HCl 5 MG HCl 5 MG HCl 5 MG traZODone traZODone No traZODone HCl 50 MG HCl 50 MG HCl 50 MG Multivitami Multivitami No Multivitam n n in Ferrous Ferrous No 1{table QD Ferrous Sulfate 325 Sulfate 325 t} Sulfate (65 Fe) MG (65 Fe) MG 325 (65 Fe) MG Vitamin C Vitamin C No Vitamin C Tamsulosin Tamsulosin No 1{capsu QD Tamsulosin HCl 0.4 MG HCl 0.4 MG le} HCl 0.4 MG traMADol traMADol No 1{table traMADol HCl 50 MG HCl 50 MG t} HCl 50 MG cloNIDine cloNIDine No TID cloNIDine HCl 0.3 MG HCl 0.3 MG HCl 0.3 MG traZODone traZODone No 1{table QD traZODone HCl 50 MG HCl 50 MG t_at_be HCl 50 MG dtime_a s_neede d} Simvastatin Simvastatin No 1{table QD Simvastati 20 MG 20 MG t_in_th n 20 MG e_eveni ng} Vitamin D3 Vitamin D3 No 1{capsu QD Vitamin D3 50 MCG 50 MCG le} 50 MCG (1999) (1999) (1999) Terazosin Terazosin No Terazosin HCl 5 MG HCl 5 MG HCl 5 MG traMADol traMADol No 1{table traMADol HCl 50 MG HCl 50 MG t} HCl 50 MG Multivitami Multivitami No Multivitam n n in Finasteride Finasteride No 1{table QD Finasterid 5 MG 5 MG t} e 5 MG Vitamin C Vitamin C No Vitamin C Tamsulosin Tamsulosin No 1{capsu QD Tamsulosin HCl 0.4 MG HCl 0.4 MG le} HCl 0.4 MG Ferrous Ferrous No 1{table QD Ferrous Sulfate 325 Sulfate 325 t} Sulfate (65 Fe) MG (65 Fe) MG 325 (65 Fe) MG cloNIDine cloNIDine No TID cloNIDine HCl 0.3 MG HCl 0.3 MG HCl 0.3 MG traZODone traZODone No 1{table QD traZODone HCl 50 MG HCl 50 MG t_at_be HCl 50 MG dtime_a s_neede d} FeroSul 325 FeroSul 325 No FeroSul (65 Fe) MG (65 Fe) MG 325 (65 Fe) MG Aspirin 81 Aspirin 81 No Aspirin 81 MG MG MG Multivitami Multivitami No Multivitam n n in Tamsulosin Tamsulosin No Tamsulosin HCl 0.4 MG HCl 0.4 MG HCl 0.4 MG Vitamin D3 Vitamin D3 No 1{capsu QD Vitamin D3 50 MCG 50 MCG le} 50 MCG (1999) (1999) (1999) cloNIDine cloNIDine No TID cloNIDine HCl 0.3 MG HCl 0.3 MG HCl 0.3 MG Simvastatin Simvastatin No 1{table QD Simvastati 20 MG 20 MG t_in_th n 20 MG e_eveni ng} traMADol traMADol No 1{table traMADol HCl 50 MG HCl 50 MG t} HCl 50 MG Terazosin Terazosin No Terazosin HCl 5 MG HCl 5 MG HCl 5 MG Vitamin C Vitamin C No Vitamin C Finasteride Finasteride No 1{table QD Finasterid 5 MG 5 MG t} e 5 MG Aspirin 81 Aspirin 81 No Aspirin 81 MG MG MG Tamsulosin Tamsulosin No Tamsulosin HCl 0.4 MG HCl 0.4 MG HCl 0.4 MG Simvastatin Simvastatin No 1{table QD Simvastati 20 MG 20 MG t_in_th n 20 MG e_eveni ng} traMADol traMADol No 1{table traMADol HCl 50 MG HCl 50 MG t} HCl 50 MG Finasteride Finasteride No 1{table QD Finasterid 5 MG 5 MG t} e 5 MG Vitamin D3 Vitamin D3 No 1{capsu QD Vitamin D3 50 MCG 50 MCG le} 50 MCG (1999) (1999) (1999) traZODone traZODone No 1{table QD traZODone HCl 50 MG HCl 50 MG t_at_be HCl 50 MG dtime_a s_neede d} FeroSul 325 FeroSul 325 No FeroSul (65 Fe) MG (65 Fe) MG 325 (65 Fe) MG Vitamin C Vitamin C No Vitamin C Terazosin Terazosin No Terazosin HCl 5 MG HCl 5 MG HCl 5 MG Multivitami Multivitami No Multivitam n n in Tamsulosin Tamsulosin No 1{capsu QD Tamsulosin HCl 0.4 MG HCl 0.4 MG le} HCl 0.4 MG Aspirin 81 Aspirin 81 No Aspirin 81 MG MG MG Tamsulosin Tamsulosin No Tamsulosin HCl 0.4 MG HCl 0.4 MG HCl 0.4 MG Simvastatin Simvastatin No 1{table QD Simvastati 20 MG 20 MG t_in_th n 20 MG e_eveni ng} traMADol traMADol No 1{table traMADol HCl 50 MG HCl 50 MG t} HCl 50 MG Finasteride Finasteride No 1{table QD Finasterid 5 MG 5 MG t} e 5 MG Vitamin D3 Vitamin D3 No 1{capsu QD Vitamin D3 50 MCG 50 MCG le} 50 MCG (1999) (1999) (1999) traZODone traZODone No 1{table QD traZODone HCl 50 MG HCl 50 MG t_at_be HCl 50 MG dtime_a s_neede d} FeroSul 325 FeroSul 325 No FeroSul (65 Fe) MG (65 Fe) MG 325 (65 Fe) MG Vitamin C Vitamin C No Vitamin C Terazosin Terazosin No Terazosin HCl 5 MG HCl 5 MG HCl 5 MG Multivitami Multivitami No Multivitam n n in Tamsulosin Tamsulosin No 1{capsu QD Tamsulosin HCl 0.4 MG HCl 0.4 MG le} HCl 0.4 MG Tamsulosin Tamsulosin No 1{capsu QD Tamsulosin HCl 0.4 MG HCl 0.4 MG le} HCl 0.4 MG FeroSul 325 FeroSul 325 No FeroSul (65 Fe) MG (65 Fe) MG 325 (65 Fe) MG traMADol traMADol No 1{table traMADol HCl 50 MG HCl 50 MG t} HCl 50 MG Finasteride Finasteride No 1{table QD Finasterid 5 MG 5 MG t} e 5 MG Simvastatin Simvastatin No 1{table QD Simvastati 20 MG 20 MG t_in_ n 20 MG e_eveni ng} Terazosin Terazosin No Terazosin HCl 5 MG HCl 5 MG HCl 5 MG Aspirin 81 Aspirin 81 No Aspirin 81 MG MG MG cloNIDine cloNIDine No TID cloNIDine HCl 0.3 MG HCl 0.3 MG HCl 0.3 MG Vitamin C Vitamin C No Vitamin C Multivitami Multivitami No Multivitam n n in Vitamin D3 Vitamin D3 No 1{capsu QD Vitamin D3 50 MCG 50 MCG le} 50 MCG (1999) (1999) (1999) traZODone traZODone No traZODone HCl 50 MG HCl 50 MG HCl 50 MG Tamsulosin Tamsulosin No Tamsulosin HCl 0.4 MG HCl 0.4 MG HCl 0.4 MG FeroSul 325 FeroSul 325 No FeroSul (65 Fe) MG (65 Fe) MG 325 (65 Fe) MG traMADol traMADol No 1{table traMADol HCl 50 MG HCl 50 MG t} HCl 50 MG Terazosin Terazosin No Terazosin HCl 5 MG HCl 5 MG HCl 5 MG Simvastatin Simvastatin No 1{table QD Simvastati 20 MG 20 MG t_in_th n 20 MG e_eveni ng} traZODone traZODone No traZODone HCl 50 MG HCl 50 MG HCl 50 MG Vitamin D3 Vitamin D3 No 1{capsu QD Vitamin D3 50 MCG 50 MCG le} 50 MCG (1999) (1999) (1999) Aspirin 81 Aspirin 81 No Aspirin 81 MG MG MG cloNIDine cloNIDine No TID cloNIDine HCl 0.3 MG HCl 0.3 MG HCl 0.3 MG Multivitami Multivitami No Multivitam n n in Vitamin C Vitamin C No Vitamin C Finasteride Finasteride No 1{table QD Finasterid 5 MG 5 MG t} e 5 MG Tamsulosin Tamsulosin No Tamsulosin HCl 0.4 MG HCl 0.4 MG HCl 0.4 MG Tamsulosin Tamsulosin No 1{capsu QD Tamsulosin HCl 0.4 MG HCl 0.4 MG le} HCl 0.4 MG Tamsulosin Tamsulosin 2021- No 1{capsu QD Tamsulosin HCl 0.4 MG HCl 0.4 MG 10-01 le} HCl 0.4 MG 00:00 :00 Finasteride Finasteride 2021- No 1{table QD Finasterid 5 MG 5 MG 10-01 t} e 5 MG 00:00 :00 Tamsulosin Tamsulosin 2021- No 1{capsu QD Tamsulosin HCl 0.4 MG HCl 0.4 MG 10-01 le} HCl 0.4 MG 00:00 :00 Finasteride Finasteride 2021- No 1{table QD Finasterid 5 MG 5 MG 10-01 t} e 5 MG 00:00 :00 Finasteride Finasteride 2021- No 1{table QD Finasterid 5 MG 5 MG 10-01 t} e 5 MG 00:00 :00 Tamsulosin Tamsulosin 2021- No 1{capsu QD Tamsulosin HCl 0.4 MG HCl 0.4 MG 10-01 le} HCl 0.4 MG 00:00 :00 Finasteride Finasteride 2021- No 1{table QD Finasterid 5 MG 5 MG 10-01 t} e 5 MG 00:00 :00 Tamsulosin Tamsulosin 2021- No 1{capsu QD Tamsulosin HCl 0.4 MG HCl 0.4 MG 10-01 le} HCl 0.4 MG 00:00 :00 Finasteride Finasteride 2- No 1{table QD Finasterid 5 MG 5 MG 07-09 t} e 5 MG 00:00 :00 Tamsulosin Tamsulosin 2- No 1{capsu QD Tamsulosin HCl 0.4 MG HCl 0.4 MG 07- le} HCl 0.4 MG 00:00 :00 Finasteride Finasteride 2- No 1{table QD Finasterid 5 MG 5 MG 07-09 t} e 5 MG 00:00 :00 Tamsulosin Tamsulosin 2- No 1{capsu QD Tamsulosin HCl 0.4 MG HCl 0.4 MG 07- le} HCl 0.4 MG 00:00 :00 Finasteride Finasteride 2- No 1{table QD Finasterid 5 MG 5 MG 07-09 t} e 5 MG 00:00 :00 Finasteride Finasteride 2- No 1{table QD Finasterid 5 MG 5 MG 07-09 t} e 5 MG 00:00 :00 Finasteride Finasteride 2- No 1{table QD Finasterid 5 MG 5 MG 07-09 t} e 5 MG 00:00 :00 Finasteride Finasteride 2- No 1{table QD Finasterid 5 MG 5 MG 07-09 t} e 5 MG 00:00 :00 Finasteride Finasteride 2- No 1{table QD Finasterid 5 MG 5 MG 07-09 t} e 5 MG 00:00 :00 Finasteride Finasteride 2- No 1{table QD Finasterid 5 MG 5 MG -17 t} e 5 MG 00:00 :00 Finasteride Finasteride 2- No 1{table QD 5 MG 5 MG 01-17 t} 00:00 :00 Finasteride Finasteride 2- No 1{table QD Finasterid 5 MG 5 MG 01-17 t} e 5 MG 00:00 :00 Finasteride Finasteride 2- No 1{table QD Finasterid 5 MG 5 MG 01-17 t} e 5 MG 00:00 :00 Finasteride Finasteride 2- No 1{table QD Finasterid 5 MG 5 MG 01-17 t} e 5 MG 00:00 :00 Finasteride Finasteride 2021- No 1{table QD Finasterid 5 MG 5 MG 17 t} e 5 MG 00:00 :00 Tamsulosin Tamsulosin 2021- No 1{capsu QD Tamsulosin HCl 0.4 MG HCl 0.4 MG 01-16 le} HCl 0.4 MG 00:00 :00 Tamsulosin Tamsulosin 2021- No 1{capsu QD HCl 0.4 MG HCl 0.4 MG -16 le} 00:00 :00 Tamsulosin Tamsulosin 2021- No 1{capsu QD Tamsulosin HCl 0.4 MG HCl 0.4 MG -16 le} HCl 0.4 MG 00:00 :00 Tamsulosin Tamsulosin 2021- No 1{capsu QD Tamsulosin HCl 0.4 MG HCl 0.4 MG -16 le} HCl 0.4 MG 00:00 :00 Tamsulosin Tamsulosin 2021- No 1{capsu QD Tamsulosin HCl 0.4 MG HCl 0.4 MG -16 le} HCl 0.4 MG 00:00 :00 Tamsulosin Tamsulosin 2021- No 1{capsu QD Tamsulosin HCl 0.4 MG HCl 0.4 MG -16 le} HCl 0.4 MG 00:00 :00 Immunizations Ordered Immunization Filled Immunization Date Status Commen ts Source Name Name [facility] 2021-02-04 [facility] Vaccine (Low Dose Vaccine (Low Dose 16:40:00 - [facility] Booster) Booster) [facility] Vaccine (Low Dose Vaccine (Low Dose 16:40:00 - [facility] Booster) Booster) [facility] COVID[address] [facility] 2021-02-04 Com[facility] Vaccine (Low Dose Vaccine (Low Dose 16:40:00 - [facility] Booster) Booster) [facility] RADHAID[address] [facility] 2021-02-04 Com[facility] Vaccine (Low Dose Vaccine (Low Dose 16:40:00 - [facility] Booster) Booster) [address] [facility] [facility] 2021-02-04 Com[facility] Vaccine (Low Dose Vaccine (Low Dose 16:40:00 - [facility] Booster) Booster) [facility] [address] [facility] 2021-02-04 Com[facility] Vaccine (Low Dose Vaccine (Low Dose 16:40:00 - [facility] Booster) Booster) [facility] [address] [facility] 2021-02-04 Com[facility] Vaccine (Low Dose Vaccine (Low Dose 16:40:00 - [facility] Booster) Booster) [facility] [facility] 2021-02-04 Com[facility] Vaccine (Low Dose Vaccine (Low Dose 16:40:00 - [facility] Booster) Booster) [facility] [address] [facility] 2021-02-04 Com[facility] Vaccine (Low Dose Vaccine (Low Dose 16:40:00 - [facility] Booster) Booster) [facility] [address] [facility] 2021-02-04 Com[facility] Vaccine (Low Dose Vaccine (Low Dose 16:40:00 - [facility] Booster) Booster) [facility] [address] [facility] 2021-02-04 Com[facility] Vaccine (Low Dose Vaccine (Low Dose 16:40:00 - [facility] Booster) Booster) [facility] [address] [facility] 2021-02-04 Com[facility] Vaccine (Low Dose Vaccine (Low Dose 16:40:00 - [facility] Booster) Booster) [facility] [address] [facility] 2021-02-04 Com[facility] Vaccine (Low Dose Vaccine (Low Dose 16:40:00 - [facility] Booster) Booster) [facility] [address] [facility] 2021-02-04 Com[facility] Vaccine (Low Dose Vaccine (Low Dose 16:40:00 - [facility] Booster) Booster) [facility] [address] [facility] 2021-02-04 Com[facility] Vaccine (Low Dose Vaccine (Low Dose 16:40:00 - [facility] Booster) Booster) [facility] [address] [facility] 2021-02-04 Com[facility] Vaccine (Low Dose Vaccine (Low Dose 16:40:00 - [facility] Booster) Booster) [facility] [address] COVID19 2021-02-04 Completed [facility] Vaccine (Low Dose Vaccine (Low Dose 16:40:00 - [facility] Booster) Booster) [facility] [address] [facility] 2021-02-04 Com[facility] Vaccine (Low Dose Vaccine (Low Dose 16:40:00 - [facility] Booster) Booster) [facility] [address] [facility] 2021-02-04 Com[facility] Vaccine (Low Dose Vaccine (Low Dose 16:40:00 - [facility] Booster) Booster) [facility] [address] [facility] 2021-02-04 Completed [facility] Vaccine (Low Dose Vaccine (Low Dose 16:40:00 - [facility] Booster) Booster) [facility] [address] [facility] 2021-02-04 Com[facility]ine (Low Dose Vaccine (Low Dose 16:40:00 - [facility] Booster) Booster) [facility] [address] [facility] 2021-02-04 Com[facility] Vaccine (Low Dose Vaccine (Low Dose 16:40:00 - [facility] Booster) Booster) [facility] [address] [facility] 2021-02-04 Completed [facility] Vaccine (Low Dose Vaccine (Low Dose 16:40:00 - [facility] Booster) Booster) [facility] [address] [facility] 2021-02-04 Com[facility] Vaccine (Low Dose Vaccine (Low Dose 16:40:00 - [facility] Booster) Booster) [facility] [address] [facility] 2021-02-04 Com[facility]ine (Low Dose Vaccine (Low Dose 16:40:00 - [facility] Booster) Booster) [facility] [address] [facility] 2021-02-04 Com[facility] Vaccine (Low Dose Vaccine (Low Dose 16:40:00 - [facility] Booster) Booster) [facility] Moderna COVID-19 Moderna COVID-19 2021-02-04 Completed [facility] Vaccine (Low Dose Vaccine (Low Dose 16:40:00 - [facility] Booster) Booster) [facility] FLUZONE HIGH DOSE FLUZONE HIGH DOSE 2021-01-27 Completed [facility] OVER [facility] OVER 65 16:25:00 - [facility] FLUZONE HIGH DOSE FLUZONE HIGH DOSE 2021-01-27 Completed [facility] OVER 65 OVER 65 16:25:00 - [facility] FLUZONE HIGH DOSE FLUZONE HIGH DOSE 2021-01-27 Completed [facility] OVER 65 OVER 65 16:25:00 - [facility] FLUZONE HIGH DOSE FLUZONE HIGH DOSE 2021-01-27 Completed [facility] OVER 65 OVER 65 16:25:00 - [facility] FLUZONE HIGH DOSE FLUZONE HIGH DOSE 2021-01-27 Completed [facility] OVER 65 OVER 65 16:25:00 - [facility] FLUZONE HIGH DOSE FLUZONE HIGH DOSE 2021-01-27 Completed [facility] OVER 65 OVER 65 16:25:00 - [facility] FLUZONE HIGH DOSE FLUZONE HIGH DOSE 2021-01-27 Completed [facility] OVER 65 OVER 65 16:25:00 - [facility] FLUZONE HIGH DOSE FLUZONE HIGH DOSE 2021-01-27 Completed [facility] OVER 65 OVER 65 16:25:00 - [facility] FLUZONE HIGH DOSE FLUZONE HIGH DOSE 2021-01-27 Completed [facility] OVER 65 OVER 65 16:25:00 - [facility] FLUZONE HIGH DOSE FLUZONE HIGH DOSE 2021-01-27 Completed [facility] OVER 65 OVER 65 16:25:00 - [facility] FLUZONE HIGH DOSE FLUZONE HIGH DOSE 2021-01-27 Completed [facility] OVER 65 OVER 65 16:25:00 [facility] FLUZONE HIGH DOSE FLUZONE HIGH DOSE 2021-01-27 Completed [facility] OVER 65 OVER 65 16:25:00 - [facility] FLUZONE HIGH DOSE FLUZONE HIGH DOSE 2021-01-27 Completed [facility] OVER 65 OVER 65 16:25:00 - [facility] FLUZONE HIGH DOSE FLUZONE HIGH DOSE 2021-01-27 Completed [facility] OVER 65 OVER 65 16:25:00 - [facility] FLUZONE HIGH DOSE FLUZONE HIGH DOSE 2021-01-27 Completed [facility] OVER 65 OVER 65 16:25:00 - [facility] FLUZONE HIGH DOSE FLUZONE HIGH DOSE 2021-01-27 Completed [facility] OVER 65 OVER 65 16:25:00 - [facility] FLUZONE HIGH DOSE FLUZONE HIGH DOSE 2021-01-27 Completed [facility] OVER 65 OVER 65 16:25:00 - [facility] FLUZONE HIGH DOSE FLUZONE HIGH DOSE 2021-01-27 Completed [facility] OVER 65 OVER 65 16:25:00 - [facility] FLUZONE HIGH DOSE FLUZONE HIGH DOSE 2021-01-27 Completed [facility] OVER 65 OVER 65 16:25:00 - [facility] FLUZONE HIGH DOSE FLUZONE HIGH DOSE 2021-01-27 Completed [facility] OVER 65 OVER 65 16:25:00 - [facility] FLUZONE HIGH DOSE FLUZONE HIGH DOSE 2021-01-27 Completed [facility] OVER 65 OVER 65 16:25:00 - [facility] FLUZONE HIGH DOSE FLUZONE HIGH DOSE 2021-01-27 Completed [facility] OVER 65 OVER 65 16:25:00 - [facility] FLUZONE HIGH DOSE FLUZONE HIGH DOSE 2021-01-27 Completed [facility] OVER 65 OVER 65 16:25:00 - [facility] FLUZONE HIGH DOSE FLUZONE HIGH DOSE 2021-01-27 Completed [facility] OVER 65 OVER 65 16:25:00 - [facility] FLUZONE HIGH DOSE FLUZONE HIGH DOSE 2021-01-27 Completed [facility] OVER 65 OVER 65 16:25:00 - [facility] FLUZONE HIGH DOSE FLUZONE HIGH DOSE 2021-01-27 Completed [facility] OVER 65 OVER 65 16:25:00 - [facility] FLUZONE HIGH DOSE FLUZONE HIGH DOSE 2021-01-27 Completed [facility] OVER 65 OVER 65 16:25:00 - [facility] FLUZONE HIGH DOSE FLUZONE HIGH DOSE 2021-01-27 Completed [facility] OVER 65 OVER 65 16:25:00 - [facility] Pfizer COVID-19 Pfizer COVID-19 2020-05-24 [facility] Vacc[facility] 16:38:00 [facility] Pfizer COVID-19 Pfizer COVID-19 2020-05-24 Completed [facility] Vaccine 16:38:00 [facility] Pfizer COVID-19 Pfizer COVID-19 2020-05-24 Completed [facility] Vaccine 16:38:00 [facility] Pfizer COVID-19 Pfizer COVID-19 2020-05-24 Completed [facility] Vaccine 16:38:00 [facility] Pfizer COVID-19 Pfizer COVID-19 2020-05-24 Completed [facility] Vaccine 16:38:00 - [facility] Pfizer COVID-19 Pfizer COVID-19 2020-05-24 Completed [facility] Vaccine 16:38:00 - [facility] Pfizer COVID-19 Pfizer COVID-19 2020-05-24 Completed [facility] Vaccine 16:38:00 [facility] Pfizer COVID-19 Pfizer COVID-19 2020-05-24 Completed [facility] Vaccine 16:38:00 [facility] Pfizer COVID-19 Pfizer COVID-19 2020-05-24 Completed [facility] Vaccine 16:38:00 [facility] Pfizer COVID-19 Pfizer COVID-19 2020-05-24 Completed [facility] Vaccine 16:38:00 [facility] Pfizer COVID-19 Pfizer COVID-19 2020-05-24 Completed [facility] Vaccine 16:38:00 [facility] Pfizer COVID-19 Pfizer COVID-19 2020-05-24 Completed [facility] Vaccine 16:38:00 [facility] Pfizer COVID-19 Pfizer COVID-19 2020-05-24 Completed [facility] Vaccine 16:38:00 [facility] Pfizer COVID-19 Pfizer COVID-19 2020-05-24 Completed [facility] Vaccine 16:38:00 - [facility] Pfizer COVID-19 Pfizer COVID-19 2020-05-24 Completed [facility] Vaccine 16:38:00 - [facility] Pfizer COVID-19 Pfizer COVID-19 2020-05-24 Completed [facility] Vaccine 16:38:00 [facility] Pfizer COVID-19 Pfizer COVID-19 2020-05-24 Completed [facility] Vaccine 16:38:00 - [facility] Pfizer COVID-19 Pfizer COVID-19 2020-05-24 Completed [facility] Vaccine 16:38:00 [facility] Pfizer COVID-19 Pfizer COVID-19 2020-05-24 Completed [facility] Vaccine 16:38:00 - [facility] Pfizer COVID-19 Pfizer COVID-19 2020-05-24 Completed [facility] Vaccine 16:38:00 - [facility] Pfizer COVID-19 Pfizer COVID-19 2020-05-24 Completed [facility] Vaccine 16:38:00 - [facility] Pfizer COVID-19 Pfizer COVID-19 2020-05-24 Completed [facility] Vaccine 16:38:00 [facility] Pfizer COVID-19 Pfizer COVID-19 2020-05-24 Completed [facility] Vaccine 16:38:00 [facility] Pfizer COVID-19 Pfizer COVID-19 2020-05-24 Completed [facility] Vaccine 16:38:00 [facility] Pfizer COVID-19 Pfizer COVID-19 2020-05-24 Completed [facility] Vaccine 16:38:00 [facility] Pfizer COVID-19 Pfizer COVID-19 2020-05-24 Completed [facility] Vaccine 16:38:00 [facility] Pfizer COVID-19 Pfizer COVID-19 2020-05-24 Completed [facility] Vaccine 16:38:00 [facility] Pfizer COVID-19 Pfizer COVID-19 2020-05-24 Completed [facility] Vaccine 16:38:00 [facility] Pfizer COVID-19 Pfizer COVID-19 2020-04-26 Completed [facility] Vaccine 16:37:00 [facility] Pfizer COVID-19 Pfizer COVID-19 2020-04-26 Completed [facility] Vaccine 16:37:00 [facility] Pfizer COVID-19 Pfizer COVID-19 2020-04-26 Completed [facility] Vaccine 16:37:00 [facility] Pfizer COVID-19 Pfizer COVID-19 2020-04-26 Completed [facility] Vaccine 16:37:00 [facility] Pfizer COVID-19 Pfizer COVID-19 2020-04-26 Completed [facility] Vaccine 16:37:00 [facility] Pfizer COVID-19 Pfizer COVID-19 2020-04-26 Completed [facility] Vaccine 16:37:00 [facility] Pfizer COVID-19 Pfizer COVID-19 2020-04-26 Completed [facility] Vaccine 16:37:00 [facility] Pfizer COVID-19 Pfizer COVID-19 2020-04-26 Completed [facility] Vaccine 16:37:00 [facility] Pfizer COVID-19 Pfizer COVID-19 2020-04-26 Completed [facility] Vaccine 16:37:00 [facility] Pfizer COVID-19 Pfizer COVID-19 2020-04-26 Completed [facility] Vaccine 16:37:00 [facility] Pfizer COVID-19 Pfizer COVID-19 2020-04-26 Completed [facility] Vaccine 16:37:00 [facility] Pfizer COVID-19 Pfizer COVID-19 2020-04-26 Completed [facility] Vaccine 16:37:00 [facility] Pfizer COVID-19 Pfizer COVID-19 2020-04-26 Completed [facility] Vaccine 16:37:00 [facility] Pfizer COVID-19 Pfizer COVID-19 2020-04-26 Completed [facility] Vaccine 16:37:00 [facility] Pfizer COVID-19 Pfizer COVID-19 2020-04-26 Completed [facility] Vaccine 16:37:00 - [facility] Pfizer COVID-19 Pfizer COVID-19 2020-04-26 Completed [facility] Vaccine 16:37:00 [facility] Pfizer COVID-19 Pfizer COVID-19 2020-04-26 Completed [facility] Vaccine 16:37:00 [facility] Pfizer COVID-19 Pfizer COVID-19 2020-04-26 Completed [facility] Vaccine 16:37:00 [facility] Pfizer COVID-19 Pfizer COVID-19 2020-04-26 Completed [facility] Vaccine 16:37:00 [facility] Pfizer COVID-19 Pfizer COVID-19 2020-04-26 Completed [facility] Vaccine 16:37:00 [facility] Pfizer COVID-19 Pfizer COVID-19 2020-04-26 Completed [facility] Vaccine 16:37:00 - [facility] Pfizer COVID-19 Pfizer COVID-19 2020-04-26 Completed [facility] Vaccine 16:37:00 - [facility] Pfizer COVID-19 Pfizer COVID-19 2020-04-26 Completed [facility] Vaccine 16:37:00 [facility] Pfizer COVID-19 Pfizer COVID-19 2020-04-26 Completed [facility] Vaccine 16:37:00 [facility] Pfizer COVID-19 Pfizer COVID-19 2020-04-26 Completed [facility] Vaccine 16:37:00 [facility] Pfizer COVID-19 Pfizer COVID-19 2020-04-26 Completed [facility] Vaccine 16:37:00 [facility] Pfizer COVID-19 Pfizer COVID-19 2020-04-26 Completed [facility] Vaccine 16:37:00 [facility] Pfizer COVID-19 Pfizer COVID-19 2020-04-26 Completed [facility] Vacc[facility] 16:37:00 [facility] Prevnar 13 (PCV13) Prevnar 13 (PCV13) 2020-01-23 Completed [facility] 15:41:00 [facility] Prevnar 13 (PCV13) Prevnar 13 (PCV13) 2020-01-23 Completed [facility] 15:41:00 - [facility] Prevnar 13 (PCV13) Prevnar 13 (PCV13) 2020-01-23 Completed [facility] 15:41:00 [facility] Prevnar 13 (PCV13) Prevnar 13 (PCV13) 2020-01-23 Completed [facility] 15:41:00 [facility] Prevnar 13 (PCV13) Prevnar 13 (PCV13) 2020-01-23 Completed [facility] 15:41:00 - [facility] Prevnar 13 (PCV13) Prevnar 13 (PCV13) 2020-01-23 Completed [facility] 15:41:00 [facility] Prevnar 13 (PCV13) Prevnar 13 (PCV13) 2020-01-23 Completed [facility] 15:41:00 - [facility] Prevnar 13 (PCV13) Prevnar 13 (PCV13) 2020-01-23 Completed [facility] 15:41:00 - [facility] Prevnar 13 (PCV13) Prevnar 13 (PCV13) 2020-01-23 Completed [facility] 15:41:00 [facility] Prevnar 13 (PCV13) Prevnar 13 (PCV13) 2020-01-23 Completed [facility] 15:41:00 [facility] Prevnar 13 (PCV13) Prevnar 13 (PCV13) 2020-01-23 Completed [facility] 15:41:00 [facility] Prevnar 13 (PCV13) Prevnar 13 (PCV13) 2020-01-23 Completed [facility] 15:41:00 [facility] Prevnar 13 (PCV13) Prevnar 13 (PCV13) 2020-01-23 Completed [facility] 15:41:00 [facility] Prevnar 13 (PCV13) Prevnar 13 (PCV13) 2020-01-23 Completed [facility] 15:41:00 [facility] Prevnar 13 (PCV13) Prevnar 13 (PCV13) 2020-01-23 Completed [facility] 15:41:00 [facility] Prevnar 13 (PCV13) Prevnar 13 (PCV13) 2020-01-23 Completed [facility] 15:41:00 - [facility] Prevnar 13 (PCV13) Prevnar 13 (PCV13) 2020-01-23 Completed [facility] 15:41:00 [facility] Prevnar 13 (PCV13) Prevnar 13 (PCV13) 2020-01-23 Completed [facility] 15:41:00 [facility] Prevnar 13 (PCV13) Prevnar 13 (PCV13) 2020-01-23 Completed [facility] 15:41:00 [facility] Prevnar 13 (PCV13) Prevnar 13 (PCV13) 2020-01-23 Completed [facility] 15:41:00 [facility] Prevnar 13 (PCV13) Prevnar 13 (PCV13) 2020-01-23 Completed [facility] 15:41:00 [facility] Prevnar 13 (PCV13) Prevnar 13 (PCV13) 2020-01-23 Completed [facility] 15:41:00 [facility] Prevnar 13 (PCV13) Prevnar 13 (PCV13) 2020-01-23 Completed [facility] 15:41:00 [facility] Prevnar 13 (PCV13) Prevnar 13 (PCV13) 2020-01-23 Completed [facility] 15:41:00 [facility] Prevnar 13 (PCV13) Prevnar 13 (PCV13) 2020-01-23 Completed [facility] 15:41:00 [facility] Prevnar 13 (PCV13) Prevnar 13 (PCV13) 2020-01-23 Completed [facility] 15:41:00 [facility] Prevnar 13 (PCV13) Prevnar 13 (PCV13) 2020-01-23 Completed [facility] 15:41:00 [facility] Prevnar 13 (PCV13) Prevnar 13 (PCV13) 2020-01-23 Completed [facility] 15:41:00 [facility] Prevnar 13 (PCV13) Prevnar 13 (PCV13) 2020-01-23 Completed [facility] 15:41:00 [facility] Prevnar 13 (PCV13) Prevnar 13 (PCV13) 2020-01-23 Completed [facility] 15:41:00 [facility] Prevnar 13 (PCV13) Prevnar 13 (PCV13) 2020-01-23 Completed [facility] 15:41:00 - [facility] Prevnar 13 (PCV13) Prevnar 13 (PCV13) 2020-01-23 Completed [facility] 15:41:00 - [facility] FluAD FluAD 2020-01-23 Completed [facility] 15:38:00 - [facility] FluAD FluAD 2020-01-23 Completed [facility] 15:38:00 - [facility] FluAD FluAD 2020-01-23 Completed [facility] 15:38:00 - [facility] FluAD FluAD 2020-01-23 Completed [facility] 15:38:00 - [facility] FluAD FluAD 2020-01-23 Completed [facility] 15:38:00 - [facility] FluAD FluAD 2020-01-23 Completed [facility] 15:38:00 - [facility] FluAD FluAD 2020-01-23 Completed [facility] 15:38:00 - [facility] FluAD FluAD 2020-01-23 Completed [facility] 15:38:00 - [facility] FluAD FluAD 2020-01-23 Completed [facility] 15:38:00 - [facility] FluAD FluAD 2020-01-23 Completed [facility] 15:38:00 - [facility] FluAD FluAD 2020-01-23 Completed [facility] 15:38:00 - [facility] FluAD FluAD 2020-01-23 Completed [facility] 15:38:00 - [facility] FluAD FluAD 2020-01-23 Completed [facility] 15:38:00 - [facility] FluAD FluAD 2020-01-23 Completed [facility] 15:38:00 - [facility] FluAD FluAD 2020-01-23 Completed [facility] 15:38:00 - [facility] FluAD FluAD 2020-01-23 Completed [facility] 15:38:00 - [facility] FluAD FluAD 2020-01-23 Completed [facility] 15:38:00 - [facility] FluAD FluAD 2020-01-23 Completed [facility] 15:38:00 - [facility] FluAD FluAD 2020-01-23 Completed [facility] 15:38:00 - [facility] FluAD FluAD 2020-01-23 Completed [facility] 15:38:00 - [facility] FluAD FluAD 2020-01-23 Completed [facility] 15:38:00 - [facility] FluAD FluAD 2020-01-23 Completed [facility] 15:38:00 - [facility] FluAD FluAD 2020-01-23 Completed [facility] 15:38:00 - [facility] FluAD FluAD 2020-01-23 Completed [facility] 15:38:00 - [facility] FluAD FluAD 2020-01-23 Completed [facility] 15:38:00 - [facility] FluAD FluAD 2020-01-23 Completed [facility] 15:38:00 - [facility] FluAD FluAD 2020-01-23 Completed [facility] 15:38:00 - [facility] FluAD FluAD 2020-01-23 Completed [facility] 15:38:00 - [facility] FluAD FluAD 2020-01-23 Completed [facility] 15:38:00 - [facility] FluAD FluAD 2020-01-23 Completed [facility] 15:38:00 - [facility] FluAD FluAD 2020-01-23 Completed [facility] 15:38:00 - [facility] FluAD FluAD 2020-01-23 Completed [facility] 15:38:00 - [facility] FluAD FluAD 2018-01-28 Completed [facility] 10:16:00 - [facility] FluAD FluAD 2018-01-28 Completed [facility] 10:16:00 - [facility] FluAD FluAD 2018-01-28 Completed [facility] 10:16:00 - [facility] FluAD FluAD 2018-01-28 Completed [facility] 10:16:00 - [facility] FluAD FluAD 2018-01-28 Completed [facility] 10:16:00 - [facility] FluAD FluAD 2018-01-28 Completed [facility] 10:16:00 - [facility] FluAD FluAD 2018-01-28 Completed [facility] 10:16:00 - [facility] FluAD FluAD 2018-01-28 Completed [facility] 10:16:00 - [facility] FluAD FluAD 2018-01-28 Completed [facility] 10:16:00 - [facility] FluAD FluAD 2018-01-28 Completed [facility] 10:16:00 - [facility] FluAD FluAD 2018-01-28 Completed [facility] 10:16:00 - [facility] FluAD FluAD 2018-01-28 Completed [facility] 10:16:00 - [facility] FluAD FluAD 2018-01-28 Completed [facility] 10:16:00 - [facility] FluAD FluAD 2018-01-28 Completed [facility] 10:16:00 - [facility] FluAD FluAD 2018-01-28 Completed [facility] 10:16:00 - [facility] FluAD FluAD 2018-01-28 Completed [facility] 10:16: - [facility] FluAD FluAD 2018-01-28 Completed [facility] 10:16:00 - [facility] FluAD FluAD 2018-01-28 Completed [facility] 10:16:00 - [facility] FluAD FluAD 2018-01-28 Completed [facility] 10:16:00 - [facility] FluAD FluAD 2018-01-28 Completed [facility] 10:16:00 - [facility] FluAD FluAD 2018-01-28 Completed [facility] 10:16:00 - [facility] FluAD FluAD 2018-01-28 Completed [facility] 10[facility]16:00 - [facility] FluAD FluAD 2018-01-28 [facility] 10:16:00 - [facility] FluAD FluAD 2018-01-28 Completed [facility] 10:16:00 - [facility] FluAD FluAD 2018-01-28 Completed [facility] 10:16:00 - [facility] FluAD FluAD 2018-01-28 Completed [facility] 10:16:00 - [facility] FluAD FluAD 2018-01-28 Completed [facility] 10:16:00 - [facility] FluAD FluAD 2018-01-28 Completed [facility] 10:16:00 - [facility] FluAD FluAD 2018-01-28 Completed [facility] 10:16:00 - [facility] Flu 2018-01-28 Completed [facility] 10:16:00 - [facility] 2018-01-28 Completed [facility] 10:16:00 - [facility] 2018-01-28 Completed [facility] 10:16:00 - [facility] Vital Signs Vital Name Observation Time Observation Value Comments Source WEIGHT 2020-12-24 03:00:00 96.435 kg HEIGHT 2020-12-24 02:40:00 180.3 cm height 2022-02-28 10:00:00 68 [in_i] [facility] weight 2022-02-28 10:00:00 211.8 [lb_av] [facility] temperature 2022-02-28 10:00:00 97.3 [degF] [facility] bmi 2022-02-28 10:00:00 32.20 kg/m2 [facility] oximetry 2022-02-28 10:00:00 96 % [facility] respiratory rate 2022-02-28 10:00:00 16 /min Comm on [facility] blood pressure 2022-02-28 10:00:00 132 mm[Hg] [facility] systolic [facility] blood pressure 2022-02-28 10:00:00 75 mm[Hg] [facility] diastolic [facility] height 2022-02-21 13:00:00 68 [in_i] [facility] weight 2022-02-21 13:00:00 204.2 [lb_av] [facility] temperature 2022-02-21 13:00:00 96.7 [degF] [facility] bmi 2022-02-21 13:00:00 31.05 kg/m2 [facility] oximetry 2022-02-21 13:00:00 95 % [facility] respiratory rate 2022-02-21 13:00:00 16 /min Comm on [facility] blood pressure 2022-02-21 13:00:00 120 mm[Hg] [facility] - systolic [facility] blood pressure 2022-02-21 13:00:00 76 mm[Hg] [facility] - diastolic [facility] Systolic blood 2021-12-12 21:10:00 148 mm[Hg] Univer sity of pressure [facility] Diastolic blood 2021-12-12 21:10:00 102 mm[Hg] Unive rsity of pressure [facility] Heart rate 2021-12-12 21:10:00 98 /[facility] 2021-12-12 21:10:00 37.33 [facility] 2021-12-12 21:10:00 18 /min [facility] height 2021-12-12 21:10:00 177.8 cm [facility] Body weight 2021-12-12 21:10:00 93.895 kg [facility] BMI 2021-12-12 21:10:00 29.70 kg/m2 [facility] Oxygen saturation in 2021-12-12 21:10:00 99 /min [facility] blood by [facility] Pulse oximetry Branch height 2021-11-22 13:30:00 68 [in_i] [facility] weight 2021-11-22 13:30:00 206 [lb_av] [facility] temperature 2021-11-22 13:30:00 96.6 [degF] Common [facility] bmi 2021-11-22 13:30:00 31.32 kg/m2 [facility] oximetry 2021-11-22 13:30:00 99 % [facility] respiratory rate 2021-11-22 13:30:00 16 /min Comm on [facility] blood pressure 2021-11-22 13:30:00 80 mm[Hg] [facility] - systolic [facility] blood pressure 2021-11-22 13:30:00 54 mm[Hg] [facility] - diastolic [facility] height 2021-11-22 13:00:00 68 [in_i] [facility] weight 2021-11-22 13:00:00 206 [lb_av] [facility] temperature 2021-11-22 13:00:00 96.6 [degF] [facility] bmi 2021-11-22 13:00:00 31.32 kg/m2 [facility] oximetry 2021-11-22 13:00:00 99 % [facility] respiratory rate 2021-11-22 13:00:00 16 /min Comm on [facility] blood pressure 2021-11-22 13:00:00 80 mm[Hg] [facility] - systolic [facility] blood pressure 2021-11-22 13:00:00 54 mm[Hg] [facility] - diastolic [facility] height 2021-07-19 11:00:00 69.50 [in_i] [facility]-19 11:00:00 220.2 [lb_av] [facility] temperature 2021-07-19 11:00:00 96.7 [degF] [facility] bmi 2021-07-19 11:00:00 32.05 kg/m2 [facility] oximetry 2021-07-19 11:00:00 98 % [facility] 2021-07-19 11:00:00 15 /min Comm on [facility] blood pressure 2021-07-19 11:00:00 123 mm[Hg] [facility] - systolic [facility] blood pressure 2021-07-19 11:00:00 74 mm[Hg] [facility] - diastolic [facility] height 2021-05-04 13:00:00 69.50 [in_i] [facility] weight 2021-05-04 13:00:00 212.2 [lb_av] Common [facility] temperature 2021-05-04 13:00:00 97.2 [degF] Common [facility] bmi 2021-05-04 13:00:00 30.88 kg/m2 [facility] oximetry 2021-05-04 13:00:00 100 % [facility] respiratory rate 2021-05-04 13:00:00 16 /min Comm on [facility] blood pressure 2021-05-04 13:00:00 104 mm[Hg] [facility] - systolic [facility] blood pressure 2021-05-04 13:00:00 64 mm[Hg] [facility] - diastolic [facility] height 2021-04-14 14:40:00 69.50 [in_i] [facility] weight 2021-04-14 14:40:00 216 [lb_av] [facility] temperature 2021-04-14 14:40:00 97.2 [degF] Common [facility] bmi 2021-04-14 14:40:00 31.44 kg/m2 [facility] oximetry 2021-04-14 14:40:00 97 % [facility] respiratory rate 2021-04-14 14:40:00 17 /min Comm on [facility] blood pressure 2021-04-14 14:40:00 125 mm[Hg] [facility] - systolic [facility] blood pressure 2021-04-14 14:40:00 75 mm[Hg] [facility] - diastolic [facility] height 2021-02-14 13:00:00 69.50 [in_i] Common [facility] weight 2021-02-14 13:00:00 217 [lb_av] Common [facility] temperature 2021-02-14 13:00:00 98.1 [degF] [facility] bmi 2021-02-14 13:00:00 31.58 kg/m2 [facility] oximetry 2021-02-14 13:00:00 99 % [facility] blood pressure 2021-02-14 13:00:00 164 mm[Hg] [facility] - systolic [facility] blood pressure 2021-02-14 13:00:00 80 mm[Hg] [facility] - diastolic [facility] height 2020-12-27 16:00:00 69.50 [in_i] [facility] weight 2020-12-27 16:00:00 217 [lb_av] [facility] temperature 2020-12-27 16:00:00 97.6 [degF] [facility] bmi 2020-12-27 16:00:00 31.58 kg/m2 [facility] oximetry 2020-12-27 16:00:00 97 % [facility] respiratory rate 2020-12-27 16:00:00 21 /min Comm on [facility] blood pressure 2020-12-27 16:00:00 130 mm[Hg] [facility] systolic [facility] blood pressure 2020-12-27 16:00:00 78 mm[Hg] [facility] diastolic [facility] WEIGHT 2020-12-24 03:00:00 96.435 kg HEIGHT 2020-12-24 02:40:00 180.3 cm Procedures Procedure Date / Time Performed Performing Clinician Sourc e XR SHOULDER 2+ VW 2021-12-12 21:35:00 [facility] NOTICE OF PRIVACY 2021-12-12 20:57:41 Doctor Unassigned, No [facility] PRACTICES Name Medical Branch CONSENT/REFUSAL FOR 2021-12-12 20:57:18 [facility] Unassigned, [facility] AND Name [facility] Branch TREATMENT Plan of Care Planned Activity Planned Date Details Comments Source Future Scheduled 2022-03-[address] [facility] 00:00:00 (12+) [code = Medical Center DEPRESSION SCREENING (12+)] Future Scheduled 2022-03-26 FALLS RISK SCREENING [facility] Test 00:00:00 [code = FALLS RISK Medical C enter SCREENING] Future Scheduled 2021-12-[address] [facility] Test 00:00:00 Counseling and Medical Cente r Screening (12+) [code = Tobacco Cessation Counseling and Screening (12+)] Future Scheduled 2021-11-24 INFLUENZA VACCINE (#1) [facility] 00:00:00 [code = INFLUENZA Medical Ce nter VACCINE (#1)] Future Scheduled 2021-03-[address] [facility] 00:00:00 WELLNESS (YEAR 2 or Medical Center FIRST YEAR if no IPPE) [code = MEDICARE ANNUAL WELLNESS (YEAR 2 or FIRST YEAR if no IPPE)] Future Scheduled 2021-01-22 PNEUMOCOCCAL 65+ YRS ([address] [facility] Test 00:00:00 - PPSV23 or PCV20) Medical C enter [code = PNEUMOCOCCAL 65+ YRS (2 - PPSV23 or PCV20)] Future Scheduled 2020-11-19 COVID-19 VACCINE (3 - [facility] 00:00:00 Booster for Pfizer Medical C enter series) [code = COVID-19 VACCINE (3 - Booster for Pfizer series)] Future Scheduled 1997-10-13 SHINGLES VACCINES ([address] [facility] 00:00:00 2) [code = SHINGLES Medical Center VACCINES (1 of 2)] Future Scheduled 1966-10-13 DTAP/TDAP/TD VACCINES [facility] 00:00:00 (1 - Tdap) [code = Medical C enter DTAP/TDAP/TD VACCINES (1 - Tdap)] Future Scheduled 1965-10-13 HEPATITIS C SCREENING [facility] 00:00:00 [code = HEPATITIS C Medical Center SCREENING] Future Scheduled 1947 CT Colonography (combo) [facility] 00:00:00 [code = CT Colonography [facility] (combo)] Future Scheduled 1947 Screening for malignant [facility] Test 00:00:00 neoplasm of colon Medical Ce nter (procedure) [code = 410854545] Future Scheduled 1947 Screening for malignant [facility] Test 00:00:00 neoplasm of colon Medical Ce nter (procedure) [code = 670927246] Future Scheduled 1947 Screening for malignant [facility] Test 00:00:00 neoplasm of colon Medical Ce nter (procedure) [code = 898633794] Future Scheduled 1947 Screening for malignant [facility] Test 00:00:00 neoplasm of colon Medical Ce nter (procedure) [code = 563070724] Future Scheduled 1947 Sigmoidoscopy [code = [facility] 00:[facility]00 Sigmoidoscopy] Medical Cente r Encounters Start End Encounter Admission Attending Care Care Encounter Source Date/Time Date/Time Type Type Clinicians Facility Department ID 2022-06-05 Outpatient [place], STLMLC STLMLC [id number] Common 14:00:00 [place] [address] [facility] 2022-05-17 Outpatient [place], STLMLC STLMLC [id number] Common 13:26:00 [place] [id number] [facility] 2022-04-21 Outpatient [place], STLMLC STLMLC [id number] Common 15:33:00 [place] [id number] [facility] 2022-02-23 Outpatient Ziegler, Na STLMLC STLMLC [id number] 2 Common 15:05:00 [facility] 2021-11-23 Outpatient Ziegler, Na STLMLC STLMLC [id number] 2 Common 12:57:00 [facility] 2021-11-18 Outpatient Ziegler, Na STLMLC STLMLC [id number] 2 Common 08:56:00 [facility] 2021-09-19 Inpatient DALE Jeremyjennifer, HCACL OUTD [id number] [facility] 13:30:00 Vance 81 [facility] 2021-09-16 Outpatient Ziegler, Na STLMLC STLMLC [id number] 2 Common 12:34:00 [id number] [facility] 2021-07-13 Outpatient Ziegler, Na STLMLC STLMLC [id number] 2 Common 13:22:00 [facility] 2021-06-09 Outpatient Ziegler, Na STLMLC STLMLC [id number] 2 Common 15:27:01 [facility] 2021-05-09 Outpatient Ziegler, Na STLMLC STLMLC [id number] 2 Common 11:59:00 [facility] 2021-04-28 Outpatient MDA [facility] [id number] 18:17:21 Anderso n 2021-04-20 Outpatient Ziegler, Na STLMLC STLMLC [id number] 2 Common 14:38:39 [facility] 2021-04-20 Outpatient Ziegler, Na STLMLC STLMLC [id number] 2 Common 14:15:47 [facility] 2021-04-20 Outpatient Ziegler, Na STLMLC STLMLC [id number] 2 Common 14:12:49 [facility] 2021-04-20 Outpatient Ziegler, Na STLMLC STLMLC [id number] 2 Common 14:07:39 [id number] [facility] 2021-04-20 Outpatient Ziegler, Na STLMLC STLMLC [id number] 2 Common 14:00:49 [id number] [facility] 2021-04-20 Outpatient Ziegler, Na STLMLC STLMLC [id number] 2 Common 13:56:40 [id number] [facility] 2021-04-20 Outpatient Ziegler, Na STLMLC STLMLC [id number] 2 Common 13:38:58 [id number] [facility] 2021-04-20 Outpatient Ziegler, Na STLMLC STLMLC [id number] 2 Common 12:49:57 [id number] [facility] 2021-04-20 Outpatient Ziegler, Na STLMLC STLMLC [id number] 2 Common 12:45:15 [id number] [facility] 2021-04-20 Outpatient Ziegler, Na STLMLC STLMLC [id number] 2 Common 12:33:03 [id number] [facility] 2021-04-20 Outpatient Ziegler, Na STLMLC STLMLC [id number] 2 Common 12:32:33 [id number] [facility] 2021-04-20 Outpatient Ziegler, Na STLMLC STLMLC [id number] 2 Common 12:31:31 [id number] [facility] 2021-04-20 Outpatient Ziegler, Na STLMLC STLMLC [id number] 2 Common 12:31:18 [id number] [facility] 2021-04-20 Outpatient Ziegler, Na STLMLC STLMLC [id number] 2 Common 11:49:11 [id number] [facility] 2021-04-20 Outpatient Ziegler, Na STLMLC STLMLC [id number] 2 Common 11:48:31 [id number] [facility] 2021-04-20 Outpatient Ziegler, Na STLMLC STLMLC [id number] 2 Common 11:47:16 [id number] [facility] 2021-04-20 Outpatient Ziegler, Na STLMLC STLMLC [id number] 2 Common 11:45:32 [id number] [facility] 2021-04-20 Outpatient Ziegler, Na STLMLC STLMLC [id number] 2 Common 11:42:40 [id number] [facility] 2021-04-20 Outpatient Ziegler, Na STLMLC STLMLC [id number] 2 Common 11:40:58 [id number] [facility] 2021-04-20 Outpatient Ziegler, Na STLMLC STLMLC [id number] 2 Common 11:37:41 [id number] [facility] 2021-01-02 [facility] [id number] [facility] 14:34:42 PATRICK FLORES 2022-04-21 2022-04-21 (TEL) STLMLC STLMLC [id number] Co mmon 00:00:00 00:00:00 [facility] 2022-03-03 2022-03-03 (TEL) STLMLC STLMLC [id number] Co mmon 00:00:00 00:00:00 [facility] 2022-02-28 2022-02-28 OFFICE STLMLC STLMLC [id number] Co mmon 00:00:00 00:00:00 VISIT EST Spir it PT LEVEL 3 - [facility] 2022-02-21 2022-02-21 (TEL) STLMLC STLMLC [id number] Co mmon 00:00:00 00:00:00 [facility] - [facility] 2022-02-21 2022-02-21 OFFICE STLMLC STLMLC [id number] Co mmon 00:00:00 00:00:00 VISIT EST Spir it PT LEVEL 3 - [facility] 2022-01-03 2022-01-03 (TEL) STLMLC STLMLC [id number] Co mmon 00:00:00 00:00:00 [facility] 2021-12-26 2021-12-26 (TEL) STLMLC STLMLC [id number] Co mmon 00:00:00 00:00:00 [facility] 2021-12-12 2021-12-12 [id number] Univers 16:13:00 18:23:00 MICHEAL frye [facility] 2021-12-12 2021-12-12 Emergency [facility] [id number] Univers 16:13:00 18:23:00 Micheal Taylor [place] [id number] [facility] [id number] [facility] [id number] [place] [id number] Branch 2021-11-22 2021-11-22 SUB ANNUAL STLMLC STLMLC [id number] Common 00:00:00 00:00:00 MCR [facility] V[facility] 2021-11-22 2021-11-22 OFFICE STLMLC STLMLC [id number] Co mmon 00:00:00 00:00:00 VISIT EST Spir it PT LEVEL 3 [facility] 2021-11-01 2021-11-01 (TEL) STLMLC STLMLC [id number] Co mmon 00:00:00 00:00:00 [facility] 2021-10-25 2021-10-25 (TEL) STLMLC STLMLC [id number] Co mmon 00:00:00 00:00:00 [facility] 2021-10-11 2021-10-11 (TEL) STLMLC STLMLC [id number] Co mmon 00:00:00 00:00:00 [facility] 2021-10-06 2021-10-06 Outpatient FERMAHAD_STARLA MAJUVE [facility] [id number] 01:23:00 01:23:00 HN 0714 [facility] 2021-09-29 2021-09-29 (TEL) STLMLC STLMLC [id number] Co mmon 00:00:00 00:00:00 [facility] 2021-09-14 2021-09-14 (TEL) STLMLC STLMLC [id number] Co mmon 00:00:00 00:00:00 [facility] 2021-09-13 2021-09-13 (TEL) STLMLC STLMLC [id number] Co mmon 00:00:00 00:00:00 [facility] 2021-08-17 2021-08-17 (TEL) STLMLC STLMLC [id number] Co mmon 00:00:00 00:00:00 [facility] 2021-07-19 2021-07-19 OFFICE STLMLC STLMLC [id number] Co mmon 00:00:00 00:00:00 VISIT EST Spir it PT LEVEL 3 [facility] 2021-07-13 2021-07-13 (TEL) STLMLC STLMLC [id number] Co mmon 00:00:00 00:00:00 [facility] 2021-05-04 2021-05-04 Postop STLMLC STLMLC [id number] Co mmon 00:00:00 00:00:00 visit [facility] 2021-04-15 2021-04-15 (TEL) STLMLC STLMLC [id number] Co mmon 00:00:00 00:00:00 [facility] 2021-04-14 2021-04-14 OFFICE STLMLC STLMLC [id number] Co mmon 00:00:00 00:00:00 VISIT EST Spir it PT LEVEL 3 - [facility] 2021-04-11 2021-04-11 (TEL) STLMLC STLMLC [id number] Co mmon 00:00:00 00:00:00 [facility] 2021-04-04 2021-04-04 (TEL) STLMLC STLMLC [id number] Co mmon 00:00:00 00:00:00 [facility] 2021-02-22 2021-02-22 (TEL) STLMLC STLMLC [id number] Co mmon 00:00:00 00:00:00 [facility] 2021-02-21 2021-02-21 (TEL) STLMLC STLMLC [id number] Co mmon 00:00:00 00:00:00 [facility] 2021-02-14 2021-02-14 OFFICE STLMLC STLMLC [id number] Co mmon 00:00:00 00:00:00 VISIT Spirit ESTAB PT - [facility] LEVEL [facility] 2021-02-04 2021-02-04 (COVID STLMLC STLMLC [id number] Co mmon 00:00:00 00:00:00 Inj) COVID Spi rit Injection [facility] 2021-02-01 2021-02-01 (TEL) STLMLC STLMLC [id number] Co mmon 00:00:00 00:00:00 [facility] 2021-01-10 2021-01-10 (TEL) STLMLC STLMLC [id number] Co mmon 00:00:00 00:00:00 [facility] 2020-12-27 2020-12-27 (TEL) STLMLC STLMLC [id number] Co mmon 00:00:00 00:00:00 [facility] 2020-12-27 2020-12-27 OFFICE STLMLC STLMLC [id number] Co mmon 00:00:00 00:00:00 VISIT EST Spir it PT LEVEL [address] [place] [address] 2020-12-23 2020-12-23 (TEL) STLMLC STLMLC [id number] Co mmon 00:00:00 00:00:00 [facility] 2020-11-09 2020-11-09 Outpatient STLMLC STLMLC [id number] Common 00:00:00 00:00:00 [facility] 2020-10-13 2020-10-13 Outpatient STLMLC STLMLC [id number] Common 00:00:00 00:00:00 [facility] 2020-07-05 2020-07-05 Outpatient STLMLC STLMLC [id number] Common 00:00:00 00:00:00 [facility] 2020-06-21 2020-06-21 Outpatient STLMLC STLMLC [id number] Common 00:00:00 00:00:00 [facility] 2020-06-19 2020-06-19 Outpatient EL TEROMAR, VICKY MDA [id number] 14:30:29 14:30:29 CHADWICK mosquera 2020-06-01 2020-06-01 Outpatient STLMLC STLMLC [id number] Common 00:00:00 00:00:00 [facility] 2020-05-27 2020-05-27 Outpatient STLMLC STLMLC [id number] Common 00:00:00 00:00:00 [facility] 2020-05-25 2020-05-25 Outpatient EL MDA MDA [id number] 13:30:42 13:30:42 Rudolph mosquera 2020-05-23 2020-05-23 Outpatient STLMLC STLMLC [id number] Common 00:00:00 00:00:00 [facility] 2020-05-18 2020-05-18 Outpatient STLMLC STLMLC [id number] Common 00:00:00 00:00:00 [facility] 2020-05-05 2020-05-05 Outpatient STLMLC STLMLC [id number] Common 00:00:00 00:00:00 [facility] 2020-04-01 2020-04-01 Outpatient STLMLC STLMLC [id number] Common 00:00:00 00:00:00 [facility] 2020-03-30 2020-03-30 Outpatient STLMLC STLMLC [id number] Common 00:00:00 00:00:00 [facility] 2020-01-23 2020-01-23 Outpatient STLMLC STLMLC [id number] Common 00:00:00 00:00:00 [facility] 2019-12-10 2019-12-10 [id number] Common 12:00:00 12:00:[address] [facility] 2019-12-08 2019-12-08 [facility] [id number] Common 15:33:00 15:33:[address] [facility] 2019-11-24 2019-11-24 [facility] [id number] Common 09:30:00 09:30:[address] [facility] 2019-11-21 2019-11-21 [facility] [id number] Common 09:20:00 09:20:[address] [facility] 2019-11-18 2019-11-18 Out[facility] [id number] Common 16:28:00 16:28:[address] [facility] 2019-11-18 2019-11-18 [facility] [id number] Common 10:00:00 10:00:[address] [facility] 2019-11-17 2019-11-17 [facility] [id number] Common 15:13:00 15:13:[address] [facility] 2019-11-17 2019-11-17 [facility] [id number] Common 14:55:00 14:55:[address] [facility] 2019-11-06 2019-11-06 [facility] [id number] Common 16:48:00 16:48:[address] [facility] 2019-11-03 2019-11-03 [facility] [id number] Common 11:57:00 11:57:[address] [facility] 2019-10-27 2019-10-27 [facility] [id number] Common 10:01:00 10:01:[address] [facility] 2019-10-27 2019-10-27 [facility] [id number] Common 09:40:00 09:40:[address] [facility] 2019-10-27 2019-10-27 [facility] [id number] Common 08:08:00 08:08:[address] [facility] [address] [facility] 2019-10-24 2019-10-24 [facility] [id number] Common 14:18:00 14:18:[address] [facility] 2019-10-24 2019-10-24 [facility] [id number] Common 13:18:00 13:18:[address] [facility] 2019-10-02 2019-10-02 [facility] [id number] Common 16:00:00 16:00:[address] [facility] 2019-10-02 2019-10-02 [facility] [id number] Common 15:00:00 15:00:[address] [facility] 2019-09-23 2019-09-23 [facility] [id number] Common 13:20:00 13:20:[address] [facility] 2019-09-19 2019-09-19 [facility] [id number] Common 16:42:00 16:42:[address] [facility] 2019-08-29 2019-08-29 [facility] [id number] Common 13:56:00 13:56:[address] [facility] 2019-08-14 2019-08-14 [facility] [id number] Common 09:26:00 09:26:[address] [facility] 2019-07-31 2019-07-31 [facility] [id number] Common 08:40:00 08:40:[address] [facility] 2019-07-16 2019-07-16 [facility] [id number] Common 15:21:00 15:21:[address] [facility] 2019-06-11 2019-06-11 [facility] [id number] Common 13:15:00 13:15:[address] [facility] 2019-03-03 2019-03-03 [facility] [id number] Common 08:00:00 08:00:[address] [facility] 2019-02-19 2019-02-19 [facility] [id number] Common 08:40:00 08:40:[address] [facility] 2019-02-10 2019-02-10 [facility] [id number] Common 09:00:00 09:00:[address] [facility] 2019-02-04 2019-02-04 [facility] [id number] Common 09:09:00 09:09:[address] [facility] 2019-01-29 2019-01-29 [id number] Common 09:00:00 09:00:[address] [facility] 2019-01-20 2019-01-20 [facility] [id number] Common 13:00:00 13:00:[address] [facility] 2018-11-29 2018-11-29 [facility] [id number] Common 13:00:00 13:00:[address] [facility] 2018-09-18 2018-09-18 [facility] [id number] Common 08:40:00 08:40:[address] [facility] 2018-08-09 2018-08-09 [facility] 25 [id number] Common 10:27:00 10:27:[address] [facility] 2018-05-13 2018-05-13 [facility] [id number] Common 11:15:00 11:15:[address] [facility] 2018-01-02 2018-01-02 [facility] [id number] Common 14:47:00 14:47:[address] [facility] 2017-10-23 2017-10-23 [facility] [id number] Common 16:32:00 16:32:[address] [facility] 2017-10-22 2017-10-22 [facility] [id number] Common 09:00:00 09:00:[address] [facility] 2017-09-12 2017-09-12 [facility] [id number] Common 15:32:00 15:32:[address] [facility] 2017-09-04 2017-09-04 Outpatient Fabio [facility] [id number] Common 10:40:00 10:40:[address] [facility] 2017-07-24 2017-07-24 Outpatient Fabio Alfredo [id number] Common 16:21:00 16:21:[address] [facility] 2017-07-23 2017-07-23 Outpatient Fabio Alfredo 13 [id number] Common 11:00:00 11:00:[address] [facility] Results Test Description Test Time Test Comments Results Result [facility] e Comments U/S, RENAL, 2020-12-25 Reason for COMPLETE 14:27:00 exam:[facility] : 1945 Sex: M *FINAL REPORT TECHNIQUE: Grayscale ultrasound of the kidneys and bladder. INDICATION: Elevated Cr. COMPARISON: None. FINDINGS: RIGHT KIDNEY: The right kidney measures 10.1 x 4.4 x 5.6 cm with a cortical thickness of 1.1 cm. Increased cortical echogenicity. No solid mass lesions. No hydronephrosis. Renal artery and vein are patent. LEFT KIDNEY: The left kidney measures 10.5 x 5.9 x 5.3 cm with a cortical thickness of 1.4 cm. Increased clinical echogenicity. No solid mass lesions. No hydronephrosis. Renal artery and vein are patent. And left lower pole hypoechoic renal lesion with posterior acoustic enhancement measures 1.2 x 1 x 0.8 cm. BLADDER: Decompressed by a Rivas catheter. IMPRESSION: 1.Medical renal disease. No hydronephrosis 2.A partially exophytic left lower pole renal lesion is hypoechoic and has posterior acoustic enhancement. This is most likely a hemorrhagic renal cyst but is indeterminate. Consider further evaluation with either a CT or MR of the abdomen with and without intravenous contrast for definitive characterization. Signed: Quinten Bruno MDReport Verified Date/Time: 12/25/2020 14:27:52 Reading Location: [facility] C013X Ortho Consult Reading Room UM, RANDOM URINE 2020-12-25 09:39:58 Test Item Value Reference Range Interpretation Comme nts SODIUM URINE (BEAKER) (test code = 243) 27 meq/L Reference Range: No NormalsOperator ID - DBCREATININE, RANDOM [id number] 09:39:57 Test Item Value Reference Range Interpretation Comments CREATININE URINE (BEAKER) (test 176.3 mg/dL code = 375) Reference Range: No NormalsOperator ID - DBURINALYSIS W/ [id number] 09:19:38 Test Item Value Reference Range Interpretation Comments COLOR (BEAKER) (test code = 470) [place] CLARITY (BEAKER) (test code = 469) Hazy SPECIFIC GRAVITY UA (BEAKER) (test 1.018 1.001-1.035 code = 468) PH UA (BEAKER) (test code = 467) 6.0 5.0-8.0 PROTEIN UA (BEAKER) (test code = 100 mg/dL Negative A 464) GLUCOSE UA (BEAKER) (test code = Negative Negative 365) KETONES UA (BEAKER) (test code = Negative Negative 371) BILIRUBIN UA (BEAKER) (test code = Negative Negative 462) BLOOD UA (BEAKER) (test code = 461) Large Negative A NITRITE UA (BEAKER) (test code = Negative Negative 465) LEUKOCYTE ESTERASE UA (BEAKER) Moderate Negative A (test code = 466) UROBILINOGEN UA (BEAKER) (test code 0.2 mg/dL 0.2-1.0 = 463) RBC UA (BEAKER) (test code = 519) 848 /HPF WBC UA (BEAKER) (test code = 520) 0 /HPF BACTERIA (BEAKER) (test code = 517) None Seen MUCUS (BEAKER) (test code = 1574) Rare HYALINE CASTS (BEAKER) (test code = 3 /LPF 514) CRYSTALS, URINE (BEAKER) (test code None Seen = 1521) SOURCE(BEAKER) (test code = 2795) Twister Frame Tender ID - [auto]Twister Frame Tender ID - [id number] 07:09:41 Test Item Value Reference Range Interpretation Comments PHOSPHORUS (BEAKER) 3.2 mg/dL 2.3-4.7 Specimen slightly (test code = 604) hemolyzed Twister Frame Tender ID - CHELSEA GBASIC METABOLIC [id number] 07:09:41 Test Item Value Reference Range Interpretation Comments SODIUM (BEAKER) 139 meq/L 136-145 (test code = 381) POTASSIUM (BEAKER) 4.0 meq/L 3.5-5.1 Specimen slightly (test code = 379) hemolyzed CHLORIDE (BEAKER) 108 meq/L 98-107 H (test code = 382) CO2 (BEAKER) (test 23 meq/L 22-29 code = 355) BLOOD UREA NITROGEN 48 mg/dL 7-21 H (BEAKER) (test code = 354) CREATININE (BEAKER) 2.17 mg/dL 0.57-1.25 H Specimen slightly (test code = 358) hemolyzed GLUCOSE RANDOM 101 mg/dL 70-105 (BEAKER) (test code = 652) CALCIUM (BEAKER) 8.9 mg/dL 8.4-10.2 (test code = 697) EGFR (BEAKER) (test 36 mL/min/1.73 ESTIMA RIK GFR IS code = 1092) sq m NOT ACCURATE CREATININE CLEARANCE IN PREDICTING GLOMERULAR FILTRATION RATE . ESTIMATED GFR I S NOT APPLICABLE FOR DIALYSIS PATIEN TS. Twister Frame Tender ID - CHELSEA [id number] 07:09:40 Test Item Value Reference Range Interpretation Comments MAGNESIUM (BEAKER) 2.2 mg/dL 1.6-2.6 Specimen slightly (test code = 627) hemolyzed Twister Frame Tender ID - CHELSEA GPROTHROMBIN TIME/[id number] 06:54:08 Test Item Value Reference Range Interpretation Comments PROTIME (BEAKER) 14.2 seconds 11.9-14.2 (test code = 759) INR (BEAKER) (test 1.12 See_Comment [Automat ed message] code = 370) The system [employer] generated this result transmitted ref erence range: <=5.90. The reference range was not used to int erpret this result as normal/abnormal . RECOMMENDED COUMADIN/WARFARIN INR THERAPY RANGESSTANDARD DOSE: 2.0 - 3.0 Includes: PROPHYLAXIS for venous thrombosis, systemic embolization; TREATMENT for venous thrombosis and/or pulmonary embolus.HIGH RISK: Target INR is 2.5-3.5 for patients with mechanical heart valves.CBC W/PLT COUNT & AUTO [id number] 06:53:05 Test Item Value Reference Range Interpretation Comments WHITE BLOOD CELL COUNT (BEAKER) 7.5 K/ L 3.5-10.5 (test code = 775) RED BLOOD CELL COUNT (BEAKER) 3.34 M/ L 4.63-6.08 L (test code = 761) HEMOGLOBIN (BEAKER) (test code = 10.5 GM/DL 13.7-17.5 L 410) HEMATOCRIT (BEAKER) (test code = 31.9 % 40.1-51.0 L 411) MEAN CORPUSCULAR VOLUME (BEAKER) 95.5 fL 79.0-92.2 H (test code = 753) MEAN CORPUSCULAR HEMOGLOBIN 31.4 pg 25.7-32.2 (BEAKER) (test code = 751) MEAN CORPUSCULAR HEMOGLOBIN CONC 32.9 GM/DL 32.3-36.5 (BEAKER) (test code = 752) RED CELL DISTRIBUTION WIDTH 15.0 % 11.6-14.4 H (BEAKER) (test code = 412) PLATELET COUNT (BEAKER) (test 155 K/CU MM 150-450 code = 756) MEAN PLATELET VOLUME (BEAKER) 11.1 fL 9.4-12.4 (test code = 754) NUCLEATED RED BLOOD CELLS 0 /100 WBC 0-0 (BEAKER) (test code = 413) NEUTROPHILS RELATIVE PERCENT 72 % (BEAKER) (test code = 429) LYMPHOCYTES RELATIVE PERCENT 14 % (BEAKER) (test code = 430) MONOCYTES RELATIVE PERCENT 12 % (BEAKER) (test code = 431) EOSINOPHILS RELATIVE PERCENT 2 % (BEAKER) (test code = 432) BASOPHILS RELATIVE PERCENT 0 % (BEAKER) (test code = 437) NEUTROPHILS ABSOLUTE COUNT 5.41 K/ L 1.78-5.38 H (BEAKER) (test code = 670) LYMPHOCYTES ABSOLUTE COUNT 1.02 K/ L 1.32-3.57 L (BEAKER) (test code = 414) MONOCYTES ABSOLUTE COUNT (BEAKER) 0.91 K/ L 0.30-0.82 H (test code = 415) EOSINOPHILS ABSOLUTE COUNT 0.14 K/ L 0.04-0.54 (BEAKER) (test code = 416) BASOPHILS ABSOLUTE COUNT (BEAKER) 0.02 K/ L 0.01-0.08 (test code = 417) IMMATURE GRANULOCYTES-RELATIVE 0 % 0-1 PERCENT (BEAKER) (test code = 2801) COMPREHENSIVE METABOLIC [id number] 10:31:33 Test Item Value Reference Range Interpretation Comments TOTAL PROTEIN 6.5 gm/dL 6.0-8.3 (BEAKER) (test code = 770) ALBUMIN (BEAKER) 3.6 g/dL 3.5-5.0 (test code = 1145) ALKALINE PHOSPHATASE 44 U/L 40-150 (BEAKER) (test code = 346) BILIRUBIN TOTAL 0.7 mg/dL 0.2-1.2 (BEAKER) (test code = 377) SODIUM (BEAKER) (test 140 meq/L 136-145 code = 381) POTASSIUM (BEAKER) 3.6 meq/L 3.5-5.1 (test code = 379) CHLORIDE (BEAKER) 107 meq/L 98-107 (test code = 382) CO2 (BEAKER) (test 23 meq/L 22-29 code = 355) BLOOD UREA NITROGEN 42 mg/dL 7-21 H (BEAKER) (test code = 354) CREATININE (BEAKER) 2.04 mg/dL 0.57-1.25 H (test code = 358) GLUCOSE RANDOM 172 mg/dL 70-105 H (BEAKER) (test code = 652) CALCIUM (BEAKER) 9.3 mg/dL 8.4-10.2 (test code = 697) AST (SGOT) (BEAKER) 14 U/L 5-34 (test code = 353) ALT (SGPT) (BEAKER) 12 U/L 6-55 (test code = 347) EGFR (BEAKER) (test 39 mL/min/1.73 ESTIMA RIK GFR IS code = 1092) sq m NOT ACCURATE CREATININE CLEARANCE IN PREDICTING GLOMERULAR FILTRATION RATE . ESTIMATED GFR I S NOT APPLICABLE FOR DIALYSIS PATIEN TS. Twister Frame Tender ID - PIAYA LCBC W/PLT COUNT & AUTO [id number] 10:10:14 Test Item Value Reference Range Interpretation Comments WHITE BLOOD CELL COUNT (BEAKER) 8.8 K/ L 3.5-10.5 (test code = 775) RED BLOOD CELL COUNT (BEAKER) 3.50 M/ L 4.63-6.08 L (test code = 761) HEMOGLOBIN (BEAKER) (test code = 11.2 GM/DL 13.7-17.5 L 410) HEMATOCRIT (BEAKER) (test code = 34.1 % 40.1-51.0 L 411) MEAN CORPUSCULAR VOLUME (BEAKER) 97.4 fL 79.0-92.2 H (test code = 753) MEAN CORPUSCULAR HEMOGLOBIN 32.0 pg 25.7-32.2 (BEAKER) (test code = 751) MEAN CORPUSCULAR HEMOGLOBIN CONC 32.8 GM/DL 32.3-36.5 (BEAKER) (test code = 752) RED CELL DISTRIBUTION WIDTH 14.9 % 11.6-14.4 H (BEAKER) (test code = 412) PLATELET COUNT (BEAKER) (test 152 K/CU MM 150-450 code = 756) MEAN PLATELET VOLUME (BEAKER) 10.5 fL 9.4-12.4 (test code = 754) NUCLEATED RED BLOOD CELLS 0 /100 WBC 0-0 (BEAKER) (test code = 413) NEUTROPHILS RELATIVE PERCENT 85 % (BEAKER) (test code = 429) LYMPHOCYTES RELATIVE PERCENT 6 % (BEAKER) (test code = 430) MONOCYTES RELATIVE PERCENT 8 % (BEAKER) (test code = 431) EOSINOPHILS RELATIVE PERCENT 0 % (BEAKER) (test code = 432) BASOPHILS RELATIVE PERCENT 0 % (BEAKER) (test code = 437) NEUTROPHILS ABSOLUTE COUNT 7.45 K/ L 1.78-5.38 H (BEAKER) (test code = 670) LYMPHOCYTES ABSOLUTE COUNT 0.54 K/ L 1.32-3.57 L (BEAKER) (test code = 414) MONOCYTES ABSOLUTE COUNT (BEAKER) 0.72 K/ L 0.30-0.82 (test code = 415) EOSINOPHILS ABSOLUTE COUNT 0.00 K/ L 0.04-0.54 L (BEAKER) (test code = 416) BASOPHILS ABSOLUTE COUNT (BEAKER) 0.01 K/ L 0.01-0.08 (test code = 417) IMMATURE GRANULOCYTES-RELATIVE 1 % 0-1 PERCENT (BEAKER) (test code = 5195)
--- NOTE | 2022-06-07 14:46 | ER ---
Nurse's Notes [facility] Name: Quinn Crane Jr Age: 76 yrs Sex: Male : 1945 Arrival Date: 06/07/2022 Time: 14:25 Bed IW8 Private MD: Diagnosis: Dizziness and giddiness Presentation: 06/07 14:31 Chief complaint: Patient states: "I was at the GI center seeing Dr. Odonnell, I got dizzy mb9 and had low BP 99/62. He sent me to the ER". ED Course: 14:25 Patient arrived in ED. rg4 14:27 Milton Barros PA is PHCP. reagan 14:27 Oni Abel MD is Attending Physician. reagan Administered Medications: No medications were administered Outcome: 14:45 Discharge ordered by . reagan Signatures: Milton Barros PA PA jmm Garcia, Rubi rg4 Radha Henry, RN RN mb9
--- NOTE | 2022-06-07 14:46 | EDPHYS ---
Physician Documentation [facility] Name: Quinn Crane Jr Age: 76 yrs Sex: Male : 1945 Arrival Date: 06/07/2022 Time: 14:25 Bed IW8 Private MD: ED Physician Oni Abel MDM: 06/07 14:29 Patient medically screened. [facility] 06/07 14:27 Order name: Cardiac monitoring [facility] 06/07 14:27 Order name: EKG - Nurse/Tech [facility] 06/07 14:27 Order name: IV Saline Lock [facility] 06/07 14:27 Order name: Labs collected and sent [facility] 06/07 14:27 Order name: O2 Per Protocol [facility] 06/07 14:27 Order name: O2 Sat Monitoring [facility] 06/07 14:27 Order name: XRAY Chest (1 view) [facility] 06/07 14:27 Order name: EKG; Complete Time: 14:28 [facility] 06/07 14:27 Order name: Basic Metabolic Panel [facility] 06/07 14:27 Order name: CBC with Diff [facility] 06/07 14:27 Order name: LFT's [facility] 06/07 14:27 Order name: Magnesium [facility] 06/07 14:27 Order name: NT PRO-BNP [facility] 06/07 14:27 Order name: PT-INR [facility] 06/07 14:27 Order name: Troponin HS [facility] 06/07 14:27 Order name: COVID-19/FLU A+B [facility] Administered Medications: No medications were administered Disposition Summary: 06/07/22 14:45 Discharge Ordered Location: Home [facility] Condition: Undetermined [facility] Diagnosis - Dizziness and giddiness [facility] Followup: [facility] - With: Private Physician - When: As needed - Reason: Recheck today's complaints, Continuance of care, Re-evaluation by your physician Forms: - Medication Reconciliation Form [facility] - Thank You Letter emil - Antibiotic Education [facility] - Prescription Opioid Use [facility] Signatures: Dispatcher [employer] EDMilton Rai PA PA jmm
== END 2022-06-07 15:47 | disposition home or self-care (01) ==
LOC: ER 14:22
DX: R42 Dizziness and giddiness (principal)